=== PATIENT | female | born 1940 | race Caucasian/White ===

== ENCOUNTER 2023-04-23 21:42 | Inpatient (IN) | payer MEDICARE, BC, SELFPAY ==
[2023-04-23] VITALS (10 sets, daily range): BP systolic 103–138; BP diastolic 62–73; BMI 31.1
[2023-04-23 16:21] LABS: % Basophils 0.2 % (0-2); % Immature Granulocytes 0.5 % (0-0.5); % Monocytes 5.5 % (1.7-9.3); % Neutrophils 88.8 % (42.2-75.2); Absolute Immature Granulocytes 0.1 10^3/uL (0-0.05); Absolute Lymphocytes 0.7 10^3/uL (1.2-3.4); Absolute Monocytes 0.7 10^3/uL (0.1-0.6); Absolute Neutrophils 11.5 10^3/uL (1.4-6.5); Hematocrit 30.3 % (37.0-47.0); Hemoglobin 9.8 g/dL (12.0-16.0); Mean Corp Hgb Conc. 32.3 g/dL (33.0-37.0); Mean Corpuscular Volume 89.6 fL (81.0-99.0); Mean Platelet Volume 10.4 fL (7.4-10.4); Nucleated Red Blood Cells % 0 %; Platelet Count 196 10^3/uL (130-400); Red Blood Cell Count 3.38 10^6/uL (4.20-5.40); Red Cell Dist. Width 13.1 % (11.5-14.5)
[2023-04-23 16:34] LABS: Lactic Acid 1.3 mmol/L (0.7-2.0)
[2023-04-23] MEDS: OMNIPAQUE 50 ML PO (16:34)
[2023-04-23] MEDS: ZOFRAN 4 MG IV ×2 (16:34→21:32)
[2023-04-23] MEDS: DILAUDID 0.25 MG IV (16:34)
[2023-04-23 16:35] LABS: ALT (SGPT) 21 U/L (0-35); AST (SGOT) 25 U/L (14-36); Albumin 3.7 g/dl (3.5-5.0); Alkaline Phosphatase 91 U/L (38-126); Blood Urea Nitrogen 21 mg/dl (7-17); Calcium 8.7 mg/dl (8.4-10.2); Carbon Dioxide 36 mmol/L (22-30); Chloride 99 mmol/L (98-107); Estimated Creatinine Clearance 37 ml/min; Glucose 125 mg/dl (70-99); Lipase 54 U/L (23-300); Potassium 3.6 mmol/L (3.5-5.1); Sodium 136 mmol/L (135-145); Total Bilirubin 1.1 mg/dl (0.2-1.3); eGFR 56.25
--- NOTE | 2023-04-23 16:35 | ED.GENMED ---
Addendum entered and electronically signed by Conner Brown DO 04/23/23 20:42:
Reviewed with hospitalist, will reverse her anticoagulation,
30 minutes critical care time
CRITICAL CARE STATEMENT: A total of 30 minutes of critical care time was provided for this patient. This includes management of unstable vital signs, evaluation of the patient at bedside, reviewing the patient's pertinent medical records discussion
with EMS providers and patient's family in addition to discussion with consultants, review of old EKGs and review of pertinent medical records. This time with separate from time utilized to perform the aforementioned documented procedures
Original Note:
History of Present Illness
General
Chief Complaint: Abdominal Pain
Source: patient
Exam Limitations: none
Time Seen by Provider: 04/23/23 16:11
Nursing documentation reviewed up to this point in time: agreed with
Travel History
Have you had any contact with someone who has COVID-19?: No
Do you have any symptoms of coronavirus? Fever > 100 degrees, chills, cough, shortness of breath, sore throat, loss of taste or smell, muscle aches, or headache?: No
History of Present Illness
History of Present Illness:
82-year-old female presents with abdominal pain she has had a known hernia sound like incisional from C-sections at least for 30 years she states her museum director told her never to have it fixed because the mesh could cause complications she has lived
with it for many years until recently she has developed some pain with nausea, at dinner last night no fevers, slowly increasing size of the hernia
Complicated past medical history PEs on Eliquis, COPD on oxygen, congestive heart failure, liver cyst, renal cyst
Past History
Past History
ED Past Medical History: CHF, COPD, HTN and Other (PE on Eliquis)
ED Past Surgical History: Gynecological
Social History
Tobacco: Non-smoker
Alcohol: None
Drug: None
Living: with family
Employment: Retired
Review of Systems
Review of Systems
All Other Systems: Not applicable
Constitutional: Denies fever or fatigue
Respiratory: Reports no symptoms
Cardiac: Reports no symptoms
ABD/GI: Reports abdominal pain and nausea; Denies vomiting or anorexia
: Reports no symptoms
Musculoskeletal: Reports no symptoms
Neurological: Reports no symptoms
Phy Exam
Physical Exam
Physical Exam:
Physical Exam
General: Nontoxic chronically ill
Neck: No
Heart: Regular
Lungs: no acute respiratory distress. clear bilaterally
Abdomen: Large anterior abdominal wall hernia/fascial defect minimally tender no guarding or rebound no skin change
Neuro: alert and oriented. no focal neurological deficits
Skin: no rash
Psychiatric: well kept. interactive and cooperative
Extremities: no edema.
Course
Orders/Labs/Results
Orders:
Orders
04/23/23 16:00
IV Insert/Care/Rem.- Treatment PRN
04/23/23 16:07
Complete Blood Count/With Diff Urgent
Comprehensive Metabolic Panel Urgent
Lactic Acid Urgent
Lipase Urgent
04/23/23 16:26
Iohexol [Omnipaque] See Protocol PO NOW STA
04/23/23 16:27
CT Abd/pel W Iv And Oral Contr Urgent
Comment:
Reason For Exam: painful hernia
0.9% Sodium Chloride 500 ml [Nss] 500 ml IV BOLUS
HYDROmorphone [Dilaudid] 0.25 mg IV NOW STA
Ondansetron Injectable [Zofran] 4 mg IV NOW STA
Abnormal Lab Results
04/23/23
16:07
WBC 13.0 H 10^3/uL
(4.8-10.8)
RBC 3.38 L 10^6/uL
(4.20-5.40)
Hgb 9.8 L g/dL
(12.0-16.0)
Hct 30.3 L %
(37.0-47.0)
MCHC 32.3 L g/dL
(33.0-37.0)
Abs Immat Gran (auto) 0.1 H 10^3/uL
(0-0.05)
Absolute Neuts (auto) 11.5 H 10^3/uL
(1.4-6.5)
Absolute Lymphs (auto) 0.7 L 10^3/uL
(1.2-3.4)
Absolute Monos (auto) 0.7 H 10^3/uL
(0.1-0.6)
Neutrophils % 88.8 H %
(42.2-75.2)
Lymphocytes % 5.0 L %
(20.5-51.1)
Carbon Dioxide 36 H mmol/L
(22-30)
BUN 21 H mg/dl
(7-17)
Glucose 125 H mg/dl
(70-99)
Total Protein 6.0 L g/dl
(6.3-8.2)
04/23/23 16:07
04/23/23 16:07
Vital Signs
Initial and Last Documented VS:
Initial Vital Signs
Temp Pulse Resp BP Pulse Ox
98.0 F 69 18 103/62 96
04/23/23 15:52 04/23/23 15:52 04/23/23 15:52 04/23/23 15:52 04/23/23 15:52
Last Documented Vital Signs
Temp Pulse Resp BP Pulse Ox
98.0 F 69 18 103/62 96
04/23/23 15:52 04/23/23 15:52 04/23/23 15:52 04/23/23 15:52 04/23/23 15:52
MDM/Problems Addressed
Differential Diagnosis Includes:
Hernia bowel obstruction partial obstruction other intra-abdominal process
MDM/Problems Addressed:
Abdominal pain
Chronic conditions affecting care:
Hernia, PE COPD CHF
Chronic conditions affecting care: Cardiomyopathy, COPD and Previous abdomnial surgery
Acute Exacerbation and/or Progression of Chronic Illness: Cardiomyopathy, COPD and Previous abdomnial surgery
*Radiology
Radiology exam reviewed: preliminary read by ED provider and radiology read reviewed
*Pulse Oximetry
Patient hypoxic: no
*Life Care Planner Interpretation
Rate: normal
Interpretation: normal
Heart Rate: 78
Rhythm: sinus
*Critical Care Note
Total Time (30-74mins, 75-104mins- exclusive of procedures): Not Applicable
Data Reviewed
Source: patient and family
Prescriptions/Medications Considered But Not Given:
Kcentra
Further Testing Considered But Not Given:
Ultrasound
Patient Management
Social determinants of health affecting care: Living situation
Discussion with other providers: Hospitalist
Escalation/DeEscalation of care consider admission/obs:
Patient medically complex on oxygen anticoagulated mildly anemic with ascites will require admission consideration for transfusion and reversal further testing or intervention reviewed with patient and family extensively
Update Note
Update Note:
7:55 PM labs noted, no old hemoglobin in her system CT noted CT report noted
Suspect will require admission
ED Attending Note
-
Portions of this chart may have been created with voice recognition software.� Occasional wrong word or��sound alike� substitutions may have occurred due to the inherent limitations of voice recognition software.
Discharge Plan
Departure
Patient Disposition: Admit
Date of Disposition: 04/23/23
Time of Disposition: 20:12
Admit to: Telemetry
Presentation/result/management discussed w/ accepting MD/DO: Hospitalist
Patient with high blood pressure during this ER visit?: No
Condition: Fair
Discharge Problem:
Ruptured liver cyst
Referrals:
Fanta Muller MD [Family Provider] -
Interventions
Interventions:
*Risk Screen - Suicide Last Done: 04/23/23 15:59
*General Assessment Last Done: 04/23/23 15:57
*Neglect/Abuse Screening Last Done: 04/23/23 15:59
ED- Fall Risk Assessment Last Done: 04/23/23 16:11
*ED COVID-19 Vaccine History Last Done: 04/23/23 15:57
IQ-Guyouk-Ojnvedfswh Assessment Last Done: 04/23/23 16:10
[2023-04-23] MEDS: NSS 500 IV (16:43)
--- NOTE | 2023-04-23 20:38 | ED.GENMED ---
History of Present Illness
General
Chief Complaint: Abdominal Pain
Time Seen by Provider: 04/23/23 16:11
Travel History
Have you had any contact with someone who has COVID-19?: No
Do you have any symptoms of coronavirus? Fever > 100 degrees, chills, cough, shortness of breath, sore throat, loss of taste or smell, muscle aches, or headache?: No
Past History
Past History
ED Past Medical History: CHF, COPD, HTN and Other (PE on Eliquis)
ED Past Surgical History: Gynecological
Social History
Tobacco: Non-smoker
Alcohol: None
Drug: None
Living: with family
Employment: Retired
Course
Orders/Labs/Results
Orders:
Orders
04/23/23 16:00
IV Insert/Care/Rem.- Treatment PRN
04/23/23 16:07
Complete Blood Count/With Diff Urgent
Comprehensive Metabolic Panel Urgent
Lactic Acid Urgent
Lipase Urgent
04/23/23 16:26
Iohexol [Omnipaque] See Protocol PO NOW STA
04/23/23 16:27
CT Abd/pel W Iv And Oral Contr Urgent
Comment:
Reason For Exam: painful hernia
0.9% Sodium Chloride 500 ml [Nss] 500 ml IV BOLUS
HYDROmorphone [Dilaudid] 0.25 mg IV NOW STA
Ondansetron Injectable [Zofran] 4 mg IV NOW STA
04/23/23 20:37
Prothrombin Time Urgent
Protime/PTT Urgent
Prothrombin Complex(Pcc),Human [Kcentra] 1,747.5 unit Empty Viaflex Container 100 ml [Viaflex Empty Container] 0 ml IV NOW
Does patient have a dx of serious acute active bleeding?: Yes
Does patient have prior history of HIT?: No
Abnormal Lab Results
04/23/23
16:07
WBC 13.0 H 10^3/uL
(4.8-10.8)
RBC 3.38 L 10^6/uL
(4.20-5.40)
Hgb 9.8 L g/dL
(12.0-16.0)
Hct 30.3 L %
(37.0-47.0)
MCHC 32.3 L g/dL
(33.0-37.0)
Abs Immat Gran (auto) 0.1 H 10^3/uL
(0-0.05)
Absolute Neuts (auto) 11.5 H 10^3/uL
(1.4-6.5)
Absolute Lymphs (auto) 0.7 L 10^3/uL
(1.2-3.4)
Absolute Monos (auto) 0.7 H 10^3/uL
(0.1-0.6)
Neutrophils % 88.8 H %
(42.2-75.2)
Lymphocytes % 5.0 L %
(20.5-51.1)
Carbon Dioxide 36 H mmol/L
(22-30)
BUN 21 H mg/dl
(7-17)
Glucose 125 H mg/dl
(70-99)
Total Protein 6.0 L g/dl
(6.3-8.2)
04/23/23 16:07
04/23/23 16:07
Vital Signs
Initial and Last Documented VS:
Initial Vital Signs
Temp Pulse Resp BP Pulse Ox
98.0 F 69 18 96
04/23/23 15:52 04/23/23 15:52 04/23/23 15:52 04/23/23 15:52 04/23/23 15:52
Last Documented Vital Signs
Temp Pulse Resp BP Pulse Ox
98.0 F 69 18 96
04/23/23 15:52 04/23/23 15:52 04/23/23 15:52 04/23/23 15:52 04/23/23 15:52
ED Attending Note
-
Portions of this chart may have been created with voice recognition software.� Occasional wrong word or��sound alike� substitutions may have occurred due to the inherent limitations of voice recognition software.
Discharge Plan
Departure
Patient Disposition: Admit
Date of Disposition: 04/23/23
Time of Disposition: 20:12
Admit to: Telemetry
Presentation/result/management discussed w/ accepting MD/DO: Hospitalist
Patient with high blood pressure during this ER visit?: No
Condition: Fair
Discharge Problem:
Ruptured liver cyst
Prescriptions:
No Action
Eliquis 5 mg Tablet
5 mg PO BID
amlodipine [Norvasc] 2.5 mg Tablet
7.5 mg PO DAILY
metoprolol succinate [Toprol XL] 25 mg Tablet Extended Release 24 Hr
25 mg PO DAILYPRN PRN (Reason: high heart rate)
paroxetine HCl [Paxil CR] 25 mg Tablet Extended Release 24 Hr
50 mg PO DAILY
Rx Instructions:
take in am with one tablet of 12.5mg er
paroxetine HCl [Paxil CR] 12.5 mg Tablet Extended Release 24 Hr
12.5 mg PO DAILY
Rx Instructions:
take in am with two 25mg er tablets
rosuvastatin [Crestor] 10 mg Tablet
10 mg PO HS
Jardiance 10 mg Tablet
10 mg PO DAILY
Referrals:
Fanta Muller MD [Family Provider] -
Interventions
Interventions:
*Risk Screen - Suicide Last Done: 04/23/23 15:59
*General Assessment Last Done: 04/23/23 15:57
*Neglect/Abuse Screening Last Done: 04/23/23 15:59
ED- Fall Risk Assessment Last Done: 04/23/23 16:11
*ED COVID-19 Vaccine History Last Done: 04/23/23 15:57
BA-Oehmzv-Ivtfvezmer Assessment Last Done: 04/23/23 16:10
--- NOTE | 2023-04-23 21:06 | HPS.HSE ---
Family Physician
-
Family Physician: Fanta Muller
Chief Complaint
-
abdominal pain
History of Present Illness
82-year-old female past medical history of pulmonary embolism on Eliquis, CHF, hypertension, COPD on 3 L baseline, incisional hernia, liver cyst, renal cyst, presenting with abdominal pain which started yesterday evening. Pain came on relatively
suddenly and located diffusely all over her belly. She denies any radiation to the back or chest or groin. She did have some nausea but denies vomiting. She is generally constipated but did have a small bowel movement this morning.
Patient has a history of abdominal hernia after her that is quite large. She has declined hernia surgery because she was scared of complications of mesh getting infected. She does have some pain over the hernia site at times but she does
not believe it has gotten larger since yesterday.
Patient denies any recent trauma or falls.
She states that she had 2 episodes of pulmonary embolism in the past but it has been a very long time possibly 15 years since she had a pulmonary embolism.
She is a former smoker. She drinks a glass of alcohol per day.
She had 3 C-sections previously. She also had an prior hernia surgery before but does not remember where the hernia was located.
Medical History
Past Medical History
Past Medical History: Reports Other (pulmonary embolism on Eliquis, CHF, hypertension, COPD on 3 L baseline, incisional hernia, liver cyst, renal cyst)
Past Surgical History: Reports None and
Social History
Tobacco: Former Smoker
Alcohol: Daily
Drug: None
Family History
Family History: Not pertinent
Allergies / Home Medications
Allergies reflects when Allergies were last updated in [facility].
Home Medications with original date entered in [facility]
Allergy/Medication List:
Allergies
Allergy/AdvReac Type Severity Reaction Status Date / Time
No Known Allergies Allergy Unverified 04/23/23 15:57
Home Medications
amlodipine 2.5 mg tablet (Norvasc) 7.5 mg PO DAILY 04/23/23
apixaban 5 mg tablet (Eliquis) 5 mg PO BID 04/23/23
empagliflozin 10 mg tablet (Jardiance) 10 mg PO DAILY 04/23/23
metoprolol succinate 25 mg tablet,extended release 24 hr (Toprol XL) 25 mg PO DAILYPRN PRN high heart rate 04/23/23
paroxetine HCl 12.5 mg tablet,extended release 24 hr (Paxil CR) 12.5 mg PO DAILY 04/23/23
paroxetine HCl 25 mg tablet,extended release 24 hr (Paxil CR) 50 mg PO DAILY 04/23/23
rosuvastatin 10 mg tablet (Crestor) 10 mg PO HS 04/23/23
Review of Systems
-
History Source: Patient
A 12 point ROS was completed and negative except as noted: Yes
Constitutional: Reports No Symptoms
EENT: Reports No Symptoms
Respiratory: Reports No Symptoms
Cardiac: Reports No Symptoms
Abdomen/GI: Reports See HPI
: Reports No Symptoms
Musculoskeletal: Reports No Symptoms
Skin: Reports No Symptoms
Neurological: Reports No Symptoms
Endocrine: Reports No Symptoms
Hematologic/Lymphatic: Reports No Symptoms
Psych: Reports No Symptoms
Physical Exam
Vital Signs
Vital Signs
Temp Pulse Resp BP Pulse Ox
98.0 F 69 18 103/62 96
04/23/23 15:52 04/23/23 15:52 04/23/23 15:52 04/23/23 15:52 04/23/23 15:52
Physical Exam
General: Well Developed, Well Nourished and No Apparent Distress
HEENT: NormoCephalic, Moist mucous membranes and Atraumatic
Respiratory: Clear
Cardiac: S1/S2 and Regular Rhythm; No Murmur or Rub
GI: Soft, Non Tender, Non Distended and Normal Bowel Sounds; No Organomegaly
Rectal: Deferred by Provider
Musculoskeletal: No Clubbing, No Cyanosis and No Edema
Skin: No Rash
Neuro: Nonfocal/grossly intact
Laboratory Results
-
04/23/23 16:07
04/23/23 16:07
Laboratory Results
Lactic Acid 1.3 mmol/L (0.7-2.0) 04/23/23 16:07
Total Bilirubin 1.1 mg/dl (0.2-1.3) 04/23/23 16:07
AST 25 U/L (14-36) 04/23/23 16:07
ALT 21 U/L (0-35) 04/23/23 16:07
Alkaline Phosphatase 91 U/L (38-126) 04/23/23 16:07
Lipase 54 U/L (23-300) 04/23/23 16:07
Data Reviewed
-
Lab Data: Labs Reviewed by me
Old Records: Reviewed
Impression/Plan
-
IMPRESSION:
PLAN:
# Abdominal pain likely secondary to ruptured hepatic cyst with hemoperitoneum
#Normocytic anemia unknown if chronic or blood loss anemia
# History of liver cyst
-Patient hemodynamically stable, hemoglobin 9.8 no prior available
-CT abdomen pelvis shows findings suspicious of large right hepatic cyst with possible cyst perforation. There is moderate ascites suggesting hemorrhage
-ER discussed with general surgery who recommends conservative management at this time. If patient becomes clinically unstable, IR can be consulted for embolization versus surgical liver resection which could be performed here
-IR consulted and notified
-Otherwise paracentesis tomorrow
-Check coags
-Hold Eliquis
-Kcentra to reverse Eliquis
# Chronic large incisional hernia
-CT scan shows that there is central/left paracentral mid to lower abdominal wall hernia defect measuring 5 cm with hernia sac measuring 16 cm continue segment of transverse colon. There is ascites within the hernia sac consistent with
hemoperitoneum. Nonspecific mild soft tissue stranding of fat within the hernia sac
History of pulmonary embolism x2 in distant past
-Hold Eliquis
History of chronic heart failure
-Hold Jardiance
COPD on 3 L baseline
Essential hypertension
-Hold amlodipine
-Continue metoprolol
History of kidney cyst
Anxiety/depression
-Continue paroxetine
Full code
DVT prophylaxis�SCDs
Regular diet
[2023-04-23] MEDS: KCENTRA 60 UNIT IV (21:09)
[2023-04-23] MEDS: MORPHINE SULFATE 4 MG IV (21:33)
[2023-04-23 21:39] LABS: INR 1.74; PT 20.2 Sec (11.4-14.6)
[2023-04-23 21:40] LABS: APTT 31.8 Sec (23.4-35.0)
--- NOTE | 2023-04-23 22:30 | PTCARENOTE ---
rec`d pt from ED at 2230. pt AAOx3. NSR on monitor. last BP 123/71. Rt AC 20 flushed and patent. RT 20 FA placed in ICU upon arrival. HR low 60s. 3L Nc satting at 97%. 3L is pt`s baseline. Last BM reported by pt on 04/22, in morning. Pt gets up to
bathroom to urinate. Pt has large hernia in right lower abdomen. site is tender to touch. no discoloration. Pt denies pain while laying down, Pt complains of pain with movement. bed alarm on. safe environment maintained. call agarwal in reach.
[2023-04-23] MEDS: CRESTOR 10 MG PO (23:23)
[2023-04-24] VITALS (67 sets, daily range): BP systolic 88–147; BP diastolic 45–112; BMI 32.6
--- NOTE | 2023-04-24 | PTCARENOTE ---
pt reassessed. no changes in pt assessment. call agarwal in reach. pt resting comfortably.
[2023-04-24 00:33] LABS: Hemoglobin 8.4 g/dL (12.0-16.0)
[2023-04-24 03:57] LABS: % Basophils 0.2 % (0-2); % Eosinophils 0.2 % (0-6); % Immature Granulocytes 0.7 % (0-0.5); % Lymphocytes 7.3 % (20.5-51.1); % Monocytes 6.8 % (1.7-9.3); % Neutrophils 84.8 % (42.2-75.2); Absolute Immature Granulocytes 0.1 10^3/uL (0-0.05); Absolute Lymphocytes 0.9 10^3/uL (1.2-3.4); Absolute Monocytes 0.8 10^3/uL (0.1-0.6); Absolute Neutrophils 10.4 10^3/uL (1.4-6.5); Hematocrit 25.6 % (37.0-47.0); Hemoglobin 8.5 g/dL (12.0-16.0); Mean Corp Hgb Conc. 33.2 g/dL (33.0-37.0); Mean Corpuscular Hgb 29.8 pg (27.0-31.0); Mean Corpuscular Volume 89.8 fL (81.0-99.0); Mean Platelet Volume 10.4 fL (7.4-10.4); Nucleated Red Blood Cells % 0 %; Platelet Count 177 10^3/uL (130-400); Red Blood Cell Count 2.85 10^6/uL (4.20-5.40); Red Cell Dist. Width 13.2 % (11.5-14.5); White Blood Cell Count 12.3 10^3/uL (4.8-10.8)
--- NOTE | 2023-04-24 04:00 | PTCARENOTE ---
pt reassessed. no changes in pt assessment. pt resting. call agarwal in reach.
[2023-04-24 04:12] LABS: APTT 29.7 Sec (23.4-35.0); INR 1.45; PT 17.4 Sec (11.4-14.6)
[2023-04-24 04:35] LABS: ALT (SGPT) 18 U/L (0-35); AST (SGOT) 26 U/L (14-36); Albumin 3.3 g/dl (3.5-5.0); Alkaline Phosphatase 65 U/L (38-126); Blood Urea Nitrogen 20 mg/dl (7-17); Calcium 8.2 mg/dl (8.4-10.2); Carbon Dioxide 32 mmol/L (22-30); Chloride 98 mmol/L (98-107); Estimated Creatinine Clearance 47 ml/min; Glucose 112 mg/dl (70-99); Potassium 3.7 mmol/L (3.5-5.1); Sodium 134 mmol/L (135-145); Total Bilirubin 1.2 mg/dl (0.2-1.3); Total Protein 5.6 g/dl (6.3-8.2); eGFR > 60.00
--- NOTE | 2023-04-24 07:17 | CON.INTV ---
Consultation
Consultation Request
Date/Time Consultation Requested: 04/23/23
Date/Time Consultation Performed: 04/24/23
Performing Provider: José Luis
Reason for Consultation: ICU
Medical History
-
History of Present Illness:
Patient is an 82-year-old female past medical history of pulmonary embolism on Eliquis, CHF, hypertension, COPD on 3 L baseline, incisional hernia, liver cyst, renal cyst, presenting with abdominal pain which started yesterday evening.� Pain came on
relatively suddenly and located diffusely all over her belly.� She denies any radiation to the back or chest or groin.� She did have some nausea but denies vomiting.� She is generally constipated but did have a small bowel movement this morning.
Hernia is chronic but enlarging over the years.
CT abdomen pelvis obtained in ER showing large right hepatic cyst with possible cyst perforation.� There is moderate ascites suggesting hemorrhage as well. She is otherwise hemodynamically stable not on pressors. Hb on arrival 9.8.
She has transitioned her care from [place] recently, hence no past records.
She is admitted to ICU for possible intra-abdominal hemorrhage and potential need for urgent intervention.
Past Medical History
Past Medical History: Other (see list below)
Social History
Tobacco: Former Smoker
Alcohol: None
Drug: None
Family History
Family History: Reviewed & Not Pertinent
Allergies / Home Medications
Allergies
Allergy/AdvReac Type Severity Reaction Status Date / Time
No Known Allergies Allergy Unverified 04/23/23 15:57
Home Medications
Medication Instructions Recorded Confirmed Last Taken Type
amlodipine 2.5 mg tablet (Norvasc) 7.5 mg PO DAILY 04/23/23 04/23/23 04/23/23 History
apixaban 5 mg tablet (Eliquis) 5 mg PO BID 04/23/23 04/23/23 04/23/23 History
empagliflozin 10 mg tablet 10 mg PO DAILY 04/23/23 04/23/23 04/23/23 History
(Jardiance)
metoprolol succinate 25 mg 25 mg PO DAILYPRN PRN high heart 04/23/23 04/23/23 Unknown History
tablet,extended release 24 hr rate
(Toprol XL)
paroxetine HCl 12.5 mg 12.5 mg PO DAILY 04/23/23 04/23/23 04/23/23 History
tablet,extended release 24 hr
(Paxil CR)
paroxetine HCl 25 mg 50 mg PO DAILY 04/23/23 04/23/23 04/23/23 History
tablet,extended release 24 hr
(Paxil CR)
rosuvastatin 10 mg tablet (Crestor) 10 mg PO HS 04/23/23 04/23/23 Unknown History
Review of Systems
-
History Source: Patient
All other systems: Negative unless noted
Vitals / Labs / Diagnostic Testing
Vital Signs
Temp Pulse Resp BP Pulse Ox
98.0 F 59 17 103/53 99
04/23/23 15:52 04/24/23 05:30 04/24/23 05:30 04/24/23 05:00 04/24/23 05:30
Lab Data
04/24/23 03:43
04/24/23 03:43
Laboratory Results
04/23/23 04/24/23
21:22 03:43
PT 20.2 H 17.4 H
INR 1.74 1.45
APTT 31.8 29.7
Diagnostic Testing:
Physical Exam
-
HEENT: Normocephalic, Anicteric and Moist Mucous Membranes
Cardiovascular: S1/S2 and Regular Rhythm
Respiratory: Clear and Non-Labored Respirations
GI: Soft, Distended, Tender and Organomegaly (palpable ventral hernia)
Neurology: Awake, Alert, Oriented, AO x 3 and No Motor Deficits
Skin: Warm, Dry and Good Color
General: Comfortable, Poor Appetite and Other (NAD)
Assessment
-
Patient is an 82-year-old female past medical history of pulmonary embolism on Eliquis, CHF, hypertension, COPD on 3 L baseline, incisional hernia, liver cyst, renal cyst, presenting with abdominal pain N/V, which started yesterday evening.�Hernia
is chronic but enlarging over the years. CT abdomen pelvis obtained in ER showing large right hepatic cyst with possible cyst perforation.� There is moderate ascites suggesting hemorrhage as well. She is otherwise hemodynamically stable not on
pressors. Hb on arrival 9.8. She is admitted to ICU for possible intra-abdominal hemorrhage and potential need for urgent intervention.
Large R hepatic cyst with possible perforation
Intra-abdominal hemorrhage suspected
Acute blood loss anemia, unknown baseline Hb
Abd pain, N/V, decreased PO intake
Hyponatremia, mild
Met alkalosis
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
pulmonary embolism on Eliquis
CHF
hypertension
COPD on 3 L baseline
incisional hernia
liver cyst
renal cyst
Plan
No current signs of metabolic encephalopathy or MS changes/following commands
Mild-mod pain at this time.
Pain/sedation: PRN
RASS goals: 0
Hemodynamically stable, not requiring pressors.
Cardiac history reviewed--CHF history, not on home meds for this
No prior ECHO for review, had care in [place], will need records
Monitor on telemetry, limit excessive volume
Oxygen needs: 3L which is baseline
Prior history of lung disease: COPD, had seen pulmonary in [place] and reports her lung function is 'bad'
PE history on Eliquis/hold with possible bleeding
Not on home inhalers, can add Duonebs PRN
Supplemental O2 as indicated to maintain sats > 89%
CXR/CT reviewed indicating NAD in chest
Check baseline VBG given bicarb
NPO, resume diet when able
CT AP showing possible cyst rupture and hemorrhage
IR and Sx consults obtained--await plan
Aspiration precautions, HOB > 30 degrees
GI prophylaxis
Creat at baseline, no history of renal disease
Void trials
Follow urine output, critical I/Os
Replete electrolytes as needed
No signs/symptoms suspicious for infectious etiology at this time
Observe off antibiotics for now
Follow fever trend, WBC count
Lactate elevated on admission
CBC stable, possible intra-abd bleed
Hb low but no baseline for comparison
Transfuse if there is evidence for bleeding
DVT prophylaxis as assessed based on risk, including mechanical SCDs--hold home Eliquis
Can transfuse if indicated for Hb <7, plt < 10
INR WNL
No prior h/o thyroid disease
H/o diabetes, can continue on home meds, SS for coverage
HbA1c n/a
If being managed conservatively, may consider transfer to IMU
We will follow
Diagnostic Data
Chest X-Ray: 04/23/23- Low lung volumes secondary to poor inspiratory effort. Advanced right thoracic scoliosis. Nonspecific mild opacity at the lung bases. Possible considerations include atelectasis, scarring, or pneumonia. The mid to upper lung
zones are clear. No significant vascular congestion or evidence to suggest congestive heart failure. No pneumothorax.
CT Scan: AP 04/23/23- Findings highly suspicious for large right hepatic cyst with possible cyst perforation. Moderate ascites in the abdomen and pelvis, some which contains dependent increased attenuation fluid, suggesting hemorrhage. However, no
active extravasation of intravascular contrast is identified.
Central/left paracentral mid to lower abdominal wall hernia defect measuring 5 cm transverse, with hernia sac measuring 16 cm, containing a segment of transverse colon. There is ascites within the hernia sac, some of which is increased attenuation,
consistent with hemoperitoneum. Nonspecific mild soft tissue stranding of the fat within the hernia sac as well as mild irregular thickening of the margins of the hernia sac, and adjacent/surrounding edema within the subcutaneous fat.
Moderate to advanced sigmoid diverticulosis. Mild diverticulosis of the descending colon. No evidence of acute diverticulitis. No evidence to suggest bowel obstruction.
No free air. No focal collection or abscess. Right inguinal hernia with fluid and probable hemorrhage/thrombus. Mild parenchymal consolidation in the posterior left lung base, which could represent scarring, atelectasis, or pneumonia. Possible small
right breast mass. Recommend correlation with mammography.
Echo:
PFT's:
Reports and relevant images were personally reviewed.
-----
Critical Care time 51 mins -- The patient is admitted for acute critical illness for the treatment of vital organ failure and/or prevention of further life-threatening conditions. Total care includes time spent in review of history, physical exam,
medications, hemodynamic/ventilator parameters, laboratory data, imaging and discussion with house staff, pharmacy, respiratory therapy, quality audit representative, and nursing.
--- NOTE | 2023-04-24 07:52 | W.PN.HOSP.TC ---
Today's Communication/Plan
-
see A/P
Assessment / Plan
Assessment / Plan
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
suddenly and located diffusely all over her belly.�She denied any radiation to the back or chest or groin.� She did have some nausea but denies vomiting.� She is generally constipated but did have a small bowel movement this morning.
Patient has a history of abdominal hernia after her that is quite large.� She has declined hernia surgery because she was scared of complications of mesh getting infected.� She does have some pain over the hernia site at times but she does
not believe it has gotten larger.
Patient denies any recent trauma or falls.
She states that she had 2 episodes of pulmonary embolism in the past but it has been a very long time possibly 15 years since she had a pulmonary embolism.
She is a former smoker.� She drinks a glass of alcohol per day.
She had 3 C-sections previously.�She also had an prior hernia surgery before but does not remember where the hernia was located.
CT AP:
Findings highly suspicious for large right hepatic cyst with possible cyst perforation.
Moderate ascites in the abdomen and pelvis, some which contains dependent increased attenuation fluid, suggesting hemorrhage. However, no active extravasation of intravascular contrast is identified.
Central/left paracentral mid to lower abdominal wall hernia defect measuring 5 cm transverse, with hernia sac measuring 16 cm, containing a segment of transverse colon. There is ascites within the hernia sac, some of which is increased attenuation,
consistent with hemoperitoneum. Nonspecific mild soft tissue stranding of the fat within the hernia sac as well as mild irregular thickening of the margins of the hernia sac, and adjacent/surrounding edema within the subcutaneous fat.
No free air. No focal collection or abscess.
Possible small right breast mass. Recommend correlation with mammography.
A/P:
# Abdominal pain likely secondary to ruptured hepatic cyst with ascites and hemoperitoneum
# Acute blood loss anemia
# History of liver cyst
CT AP finding as above
Hgb 8.5 today, from 9.8 on admission, cont to trend Hgb and transfuse if needed (consent obtained)
s/p Kcentra to reverse BOND RUNNER Eliquis, Hold further Eliquis
Monitor BP, hold BOND RUNNER Toprol / Norvasc
ER discussed with general surgery who recommended conservative management at this time.�If patient becomes clinically unstable, IR can be consulted for embolization versus surgical liver resection
IR consulted and notified, otherwise paracentesis
Check para labs
# Chronic large incisional hernia
CT scan shows that there is central/left paracentral mid to lower abdominal wall hernia defect measuring 5 cm with hernia sac measuring 16 cm continue segment of transverse colon.� There is ascites within the hernia sac consistent with
hemoperitoneum.� Nonspecific mild soft tissue stranding of fat within the hernia sac
# History of pulmonary embolism x2 in distant past
Hold BOND RUNNER Eliquis for now
# History of chronic heart failure
Hold Jardiance
Hold Toprol
# COPD with chronic hypoxic respiratory failure on 3 L at baseline
Cont O2 support
# Essential hypertension
Hold amlodipine, Hold metoprolol
# History of kidney cyst
# Anxiety/depression
Continue paroxetine
# Incidental finding of possible small right breast mass.
Pt aware and states that it is a cyst
Recommend outpatient mammography.
# systolic heart murmur on exam
check echo
Full code
DVT prophylaxis�SCDs
Regular diet
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
called son to update, calls not answered
Anticipated Discharge: > 48 hours
Subjective/Interval History
-
Date of Service: April 24, 2023
Objective Data
-
Labs:
Laboratory Results
04/23/23 04/24/23 04/24/23
21:22 00:20 03:43
WBC 12.3 H
Hgb 8.4 L 8.5 L
Hct 25.6 L
Plt Count 177
PT 20.2 H 17.4 H
INR 1.74 1.45
APTT 31.8 29.7
Sodium 134 L
Potassium 3.7
Chloride 98
Carbon Dioxide 32 H
BUN 20 H
Creatinine 0.8
Glucose 112 H
Calcium 8.2 L
Total Bilirubin 1.2
AST 26
ALT 18
Alkaline Phosphatase 65
Vital Signs:
Vital Signs
Temp Pulse Resp BP Pulse Ox
36.7 C 59 17 103/53 99
04/23/23 15:52 04/24/23 05:30 04/24/23 05:30 04/24/23 05:00 04/24/23 05:30
I&O
04/23/23 04/24/23 04/25/23
06:59 06:59 07:59
Intake Total 250 / 250
Balance 250 / 250
Review of Systems
-
Abdomen/GI: Reports Abdominal Pain (mild and diffuse)
Physical Exam
-
General: Well Developed, Well Nourished, Comfortable, Respiratory Distress (chronic), Conversant and Appears Chronically Ill
HEENT: Normocephalic, Atraumatic, Nose Appears Normal, Ears Appear Normal and Oxygen (4L NC)
Respiratory: Clear to Auscultation and Non Labored Respirations; Negative Accessory Resp Muscle Use
Cardiac: Regular Rhythm, S1/S2 and Murmur (systolic)
GI: Soft, Normal Bowel Sounds and Distended (with chronic abdominal wall hernia )
Skin: Warm and Dry
Neuro: Awake and Alert
Psych: Calm and Intact Judgement/Insight (somewhat)
Data Reviewed
-
CT Scan: Report Reviewed by me
Labs: Labs Reviewed by me
--- NOTE | 2023-04-24 08:26 | PTCARENOTE ---
0700 patient received in bed. Ambulates to the bathroom one person assist . SR 64 BP 120/76 RR 18 POX 98% 3L ( pt's base line at home on 3L of oxygen) AAO x3 forgetful. bed alarm activated for safety. large abdominal hernia. Abdominal pain 7/10 pain
scale at midline . consent for blood transfusing sigh by dr Tipton consent in a chart call agarwal within reach
[2023-04-24] MEDS: MORPHINE SULFATE 1 MG IV ×4 (09:42→19:57)
--- NOTE | 2023-04-24 10:39 | CON.GS ---
Medical History
-
Chief Complaint: RUQ pain
History of Present Illness:
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 Ms. Frye states
that she has had vague RIGHT-sided abdominal discomfort for months now. On she acutely developed worsening sharp pain. No fevers or chills. No nausea or vomiting. No dizziness or lightheadedness. She denies any trauma, however, she
does report coughing related to her COPD. Currently she has some discomfort and mostly RIGHT-sided back pain. Passing flatus, recent bowel movement days previously, she does have chronic issues with constipation. Overall, she feels somewhat
improved.
Past Medical History
Past Medical History: CHF, COPD, HTN, Hypercholesterolemia, NIDDM and Other (PCKD and PCLD)
Past Surgical History: and Hernia Repair (Incisional hernia repair without mesh)
Social History
Tobacco: Former Smoker
Alcohol: Daily
Drug: None
Family History
Family History: Reviewed & Not Pertinent
Allergies / Home Medications
Allergy/AdvReac Type Severity Reaction Status Date / Time
No Known Allergies Allergy Unverified 04/23/23 15:57
Medication Instructions Recorded Confirmed Type
amlodipine 2.5 mg tablet (Norvasc) 7.5 mg PO DAILY 04/23/23 04/23/23 History
apixaban 5 mg tablet (Eliquis) 5 mg PO BID 04/23/23 04/23/23 History
empagliflozin 10 mg tablet 10 mg PO DAILY 04/23/23 04/23/23 History
(Jardiance)
metoprolol succinate 25 mg 25 mg PO DAILYPRN PRN high heart 04/23/23 04/23/23 History
tablet,extended release 24 hr rate
(Toprol XL)
paroxetine HCl 12.5 mg 12.5 mg PO DAILY 04/23/23 04/23/23 History
tablet,extended release 24 hr
(Paxil CR)
paroxetine HCl 25 mg 50 mg PO DAILY 04/23/23 04/23/23 History
tablet,extended release 24 hr
(Paxil CR)
rosuvastatin 10 mg tablet (Crestor) 10 mg PO HS 04/23/23 04/23/23 History
Review of Systems
-
A 10 point review of systems was completed, and was negative except as per HPI.
Physical Exam
Vital Signs
Temp Pulse Resp BP Pulse Ox
98.1 F 59 17 103/53 99
04/24/23 07:54 04/24/23 05:30 04/24/23 05:30 04/24/23 05:00 04/24/23 05:30
04/23/23 04/24/23 04/25/23
06:59 06:59 07:59
Actual Weight 73.2 kg
Body Mass Index (BMI) 32.6
Lab Results
04/24/23 03:43
WBC 12.3 10^3/uL (4.8-10.8) H 04/24/23 03:43
Hgb 8.5 g/dL (12.0-16.0) L 04/24/23 03:43
Hct 25.6 % (37.0-47.0) L 04/24/23 03:43
Plt Count 177 10^3/uL (130-400) 04/24/23 03:43
Abs Immat Gran (auto) 0.1 10^3/uL (0-0.05) H 04/24/23 03:43
Neutrophils % 84.8 % (42.2-75.2) H 04/24/23 03:43
Physical Exam
General: Well Developed, Well Nourished and No Apparent Distress
HEENT: Normocephalic and Anicteric
Respiratory: Rhonchi and Accessory Resp Muscle Use
Cardiac: Regular Rhythm
GI: Soft, Non Tender, Incisions (Well healed), Obese and Other (Large ventral incisional hernia, soft, unable to completely reduce, no skin changes)
Skin: Warm and Dry
Neuro: Nonfocal/Grossly Intact
Data Reviewed
-
CT Scan: Image Personally Visualized and interpreted and Report Reviewed by me
Labs: Labs Reviewed by me
Assessment / Plan
-
Patient is an 82 yo F p/w ruptured liver cyst (possibly secondary to coughing, no history of trauma)
No current clinical signs of bleeding with stable vital signs and Hb. Repeat CTA ordered by hospitalist. Continue to hold Eliquis. Trend Hb. No plans or indication for surgical intervention at this time. If radiographic or clinical concern for
bleeding would recommend management by IR. Surgical intervention would be complicated by body habitus including obesity and large ventral incisional hernia. All questions answered.
-- Repeat CTA pending
-- Trend Hb
-- Continue to hold Eliquis
-- No plans for surgery at this time, if concerned for bleeding IR intervention would be first step
--- NOTE | 2023-04-24 11:37 | PTCARENOTE ---
Venous zayra send results pending . patient nPO after breakfast since around 9am will be taking to CT/abdomen per order .
[2023-04-24 11:40] LABS: Venous Blood Gas B.E. 9.3 mmol/L (-4 to +4); Venous Blood Gas HCO3 35.3 mmol/L (22-27); Venous Blood Gas O2 Sat % 87.9 %; Venous Blood Gas pCO2 57 mmHg (35-48); Venous Blood Gas pO2 54 mmHg (30-50)
[2023-04-24] MEDS: NSS 250 IV (11:42)
[2023-04-24] MEDS: NSS 500 IV (12:47)
--- NOTE | 2023-04-24 12:48 | PTCARENOTE ---
Retuned from CT , results pending. iV bolus adm per order. Abdominal pain across abdomen 4/10 pain scale level . voiding in a bathroom call agarwal within reach
[2023-04-24 15:06] LABS: Hematocrit 22.4 % (37.0-47.0); Hemoglobin 7.3 g/dL (12.0-16.0)
--- NOTE | 2023-04-24 17:29 | PTCARENOTE ---
Recent Hgb 7.[address] Tipton order 2 units PRBC Type and Cross x2 send results pending . Blood consent in a chart. pt AAO 3. Anxious at times . SR 72 BP via left upper arm 120/65 MAP 79. RR 17 POX 3L 98% . Lungs diminished. Abdome
distended, large chronic abdominal hernia. continues having abdominal sharp across midle abdomen pain . Morphine adm with good pain relieve . +2 edema to b/l LE. good appetite . pt ambulates with supervision to bathroom . OOB chair for about 4 hrs.
using nursing call agarwal appropriate . per new order 2 units waiting to be received
--- NOTE | 2023-04-24 18:00 | PTCARENOTE ---
1 units of PRBC started VSS
--- NOTE | 2023-04-24 20:00 | PTCARENOTE ---
rec`d pt at 1900 laying in bed receiving a unit of blood. AAOx3. NSR on monitor. +2 bilateral extrem edema. SCds in place. systolics low 100s to high 90s. 3L baseline, satting at 94%. diminished lung sounds. no BM. pt 1x assist to bathroom to
urinate. large, firm hernia in RLQ. pt complains of pain with movement. pt turns by themselves. call agarwal in reach, safe environment maintained.
[2023-04-24] MEDS: CRESTOR 10 MG PO (22:13)
[2023-04-25] VITALS (36 sets, daily range): BP systolic 103–166; BP diastolic 53–111; BMI 32.6
--- NOTE | 2023-04-25 00:06 | PTCARENOTE ---
pt reassessed. no changes in pt assessment. pt has the second unit of blood currently running. call agarwal in reach.
[2023-04-25] MEDS: MORPHINE SULFATE 1 MG IV ×2 (01:00→04:27)
--- NOTE | 2023-04-25 04:00 | PTCARENOTE ---
pt reassessed. no changes in pt assessment. call agarwal in reach.
[2023-04-25 05:03] LABS: % Basophils 0.2 % (0-2); % Eosinophils 1.4 % (0-6); % Lymphocytes 9.4 % (20.5-51.1); % Monocytes 9.6 % (1.7-9.3); % Neutrophils 78.4 % (42.2-75.2); Absolute Eosinophils 0.1 10^3/uL (0-0.7); Absolute Immature Granulocytes 0.1 10^3/uL (0-0.05); Absolute Lymphocytes 0.8 10^3/uL (1.2-3.4); Absolute Monocytes 0.8 10^3/uL (0.1-0.6); Absolute Neutrophils 6.9 10^3/uL (1.4-6.5); Hematocrit 24.5 % (37.0-47.0); Hemoglobin 8.6 g/dL (12.0-16.0); Mean Corp Hgb Conc. 35.1 g/dL (33.0-37.0); Mean Corpuscular Volume 85.4 fL (81.0-99.0); Mean Platelet Volume 9.9 fL (7.4-10.4); Nucleated Red Blood Cells % 0 %; Red Blood Cell Count 2.87 10^6/uL (4.20-5.40); Red Cell Dist. Width 13.4 % (11.5-14.5); White Blood Cell Count 8.7 10^3/uL (4.8-10.8)
[2023-04-25 05:23] LABS: ALT (SGPT) 13 U/L (0-35); AST (SGOT) 20 U/L (14-36); Albumin 2.9 g/dl (3.5-5.0); Alkaline Phosphatase 71 U/L (38-126); Blood Urea Nitrogen 15 mg/dl (7-17); Carbon Dioxide 31 mmol/L (22-30); Chloride 101 mmol/L (98-107); Estimated Creatinine Clearance 47 ml/min; Glucose 117 mg/dl (70-99); Magnesium 2.3 mg/dl (1.6-2.3); Potassium 3.5 mmol/L (3.5-5.1); Sodium 135 mmol/L (135-145); Total Bilirubin 1.1 mg/dl (0.2-1.3); Total Protein 5.1 g/dl (6.3-8.2); eGFR > 60.00
[2023-04-25 05:47] LABS: Platelet Count 128 10^3/uL (130-400)
[2023-04-25] MEDS: KCL 160 MEQ IV (06:23)
--- NOTE | 2023-04-25 07:21 | W.PN.INTV ---
Today's Communication / Plan
Recommendations
Repeat CT stable/improved, manage conservatively
VBG reviewed, will need outpatient pulmonary/sleep FU
Advance diet, PT/OT
Can transfer to floors, we will sign off upon transfer
Assessment
-
Patient is an 82-year-old female past medical history of pulmonary embolism on Eliquis, CHF, hypertension, COPD on 3 L baseline, incisional hernia, liver cyst, renal cyst, presenting with abdominal pain N/V, which started yesterday evening.�Hernia
is chronic but enlarging over the years. CT abdomen pelvis obtained in ER showing large right hepatic cyst with possible cyst perforation.� There is moderate ascites suggesting hemorrhage as well. She is otherwise hemodynamically stable not on
pressors. Hb on arrival 9.8. She is admitted to ICU for possible intra-abdominal hemorrhage and potential need for urgent intervention.
Large R hepatic cyst with possible perforation
Intra-abdominal hemorrhage suspected
Acute blood loss anemia, unknown baseline Hb
Abd pain, N/V, decreased PO intake
Hyponatremia, mild
Met alkalosis
Chronic hypercarbic respiratory failure, compensated
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
pulmonary embolism on Eliquis
CHF
hypertension
COPD on 3 L baseline
incisional hernia
liver cyst
renal cyst
Plan
No current signs of metabolic encephalopathy or MS changes/following commands
Mild-mod pain at this time.
Pain/sedation: PRN
RASS goals: 0
Hemodynamically stable, not requiring pressors.
Cardiac history reviewed--CHF history, not on home meds for this
No prior ECHO for review, had care in [place], will need records
Monitor on telemetry, limit excessive volume
Oxygen needs: 3L which is baseline
Prior history of lung disease: COPD, had seen pulmonary in [place] and reports her lung function is 'bad'
PE history on Eliquis/hold with possible bleeding
Not on home inhalers, Duonebs PRN
Supplemental O2 as indicated to maintain sats > 89%
CXR/CT reviewed indicating NAD in chest
Baseline VB.4/57/54/35/87% --chronic hypercarbia noted
Outpatient sleep FU recommended
NPO, resume diet when able
CT AP showing possible cyst rupture and hemorrhage, repeat CT improved/stable
IR and Sx consults obtained--appreciate recs
Aspiration precautions, HOB > 30 degrees
GI prophylaxis
Creat at baseline, no history of renal disease
Void trials
Follow urine output, critical I/Os
Replete electrolytes as needed
No signs/symptoms suspicious for infectious etiology at this time
Observe off antibiotics for now
Follow fever trend, WBC count
Lactate elevated on admission
CBC stable, possible intra-abd bleed
Hb low but no baseline for comparison
Transfuse if there is evidence for bleeding
DVT prophylaxis as assessed based on risk, including mechanical SCDs--hold home Eliquis
Can transfuse if indicated for Hb <7, plt < 10
INR WNL
No prior h/o thyroid disease
H/o diabetes, can continue on home meds, SS for coverage
HbA1c n/a
If being managed conservatively, may consider transfer to IMU
Diagnostic Data
Chest X-Ray: 04/23/23- Low lung volumes secondary to poor inspiratory effort. Advanced right thoracic scoliosis. Nonspecific mild opacity at the lung bases. Possible considerations include atelectasis, scarring, or pneumonia. The mid to upper lung
zones are clear. No significant vascular congestion or evidence to suggest congestive heart failure. No pneumothorax.
CT Scan: AP 04/23/23- Findings highly suspicious for large right hepatic cyst with possible cyst perforation. Moderate ascites in the abdomen and pelvis, some which contains dependent increased attenuation fluid, suggesting hemorrhage. However, no
active extravasation of intravascular contrast is identified.
Central/left paracentral mid to lower abdominal wall hernia defect measuring 5 cm transverse, with hernia sac measuring 16 cm, containing a segment of transverse colon. There is ascites within the hernia sac, some of which is increased attenuation,
consistent with hemoperitoneum. Nonspecific mild soft tissue stranding of the fat within the hernia sac as well as mild irregular thickening of the margins of the hernia sac, and adjacent/surrounding edema within the subcutaneous fat.
Moderate to advanced sigmoid diverticulosis. Mild diverticulosis of the descending colon. No evidence of acute diverticulitis. No evidence to suggest bowel obstruction.
No free air. No focal collection or abscess. Right inguinal hernia with fluid and probable hemorrhage/thrombus. Mild parenchymal consolidation in the posterior left lung base, which could represent scarring, atelectasis, or pneumonia. Possible small
right breast mass. Recommend correlation with mammography.
Echo:
PFT's:
Reports and relevant images were personally reviewed.
-----
Critical Care time 32 mins -- The patient is admitted for acute critical illness for the treatment of vital organ failure and/or prevention of further life-threatening conditions. Total care includes time spent in review of history, physical exam,
medications, hemodynamic/ventilator parameters, laboratory data, imaging and discussion with house staff, pharmacy, respiratory therapy, alumni relations officer, and nursing.
Subjective Dataa
Subjective Data
Date of Service:
Date of Service: April 25, 2023
Chief Complaint: Chart Computer Follow Up
Subjective:
no new events, remains stable
no new complaints
Objective Data
Data Reviewed
Vital Signs / I&O / Oxygen:
Vital Signs
Temp Pulse Resp BP Pulse Ox
98.4 F 72 20 115/69 95
04/25/23 03:55 04/25/23 06:30 04/25/23 06:30 04/25/23 06:15 04/24/23 22:30
Intake and Output
04/24/23 04/25/23 04/26/23
05:59 06:59 06:59
Intake Total
Output Total
Balance
SaO2 95
Nasal Cannula flow liters per 3
minute
Physical Exam
General: Comfortable and Other (NAD)
HEENT: Normocephalic, Anicteric and Moist Mucous Membranes
Cardiovascular: S1-S2 and Regular Rhythm
Respiratory: Clear and Non-Labored Respirations
GI: Soft, Distended, Normal Bowel Sounds and Organomegaly (large palpable ventral hernia)
Neurology: Awake, Alert, Oriented, AO x 3 and No Motor Deficits
Skin: Warm, Dry and Good Color
Labs/Micro/Reports
Lab Data
04/25/23 04:35
04/25/23 04:35
--- NOTE | 2023-04-25 08:04 | W.PN.HOSP.TC ---
Today's Communication/Plan
-
see A/P
Assessment / Plan
Assessment / Plan
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
suddenly and located diffusely all over her belly.�She denied any radiation to the back or chest or groin.� She did have some nausea but denies vomiting.� She is generally constipated but did have a small bowel movement this morning.
Patient has a history of abdominal hernia after her that is quite large.� She has declined hernia surgery because she was scared of complications of mesh getting infected.� She does have some pain over the hernia site at times but she does
not believe it has gotten larger.
Patient denies any recent trauma or falls.
She states that she had 2 episodes of pulmonary embolism in the past but it has been a very long time possibly 15 years since she had a pulmonary embolism.
She is a former smoker.� She drinks a glass of alcohol per day.
She had 3 C-sections previously.�She also had an prior hernia surgery before but does not remember where the hernia was located.
CT AP:
Findings highly suspicious for large right hepatic cyst with possible cyst perforation.
Moderate ascites in the abdomen and pelvis, some which contains dependent increased attenuation fluid, suggesting hemorrhage. However, no active extravasation of intravascular contrast is identified.
Central/left paracentral mid to lower abdominal wall hernia defect measuring 5 cm transverse, with hernia sac measuring 16 cm, containing a segment of transverse colon. There is ascites within the hernia sac, some of which is increased attenuation,
consistent with hemoperitoneum. Nonspecific mild soft tissue stranding of the fat within the hernia sac as well as mild irregular thickening of the margins of the hernia sac, and adjacent/surrounding edema within the subcutaneous fat.
No free air. No focal collection or abscess.
Possible small right breast mass. Recommend correlation with mammography.
A/P:
# Abdominal pain likely secondary to ruptured hepatic cyst with ascites and hemoperitoneum
# Acute blood loss anemia
# History of liver cyst
Admission CT AP finding as above
Follow up CT angio without active bleed
Hgb 8.6 today, s/p 2 units PRBC, lowest was at 7.3
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
Monitor BP, hold HUMAN RESOURCES RECORDS CLERK Toprol / Norvasc
ER discussed with general surgery who recommended conservative management at this time.�If patient becomes clinically unstable, IR can be consulted for embolization versus surgical liver resection
Pending paracentesis by IR, and follow up para labs
# Chronic large incisional hernia
CT scan shows that there is central/left paracentral mid to lower abdominal wall hernia defect measuring 5 cm with hernia sac measuring 16 cm continue segment of transverse colon.� There is ascites within the hernia sac consistent with
hemoperitoneum.�Nonspecific mild soft tissue stranding of fat within the hernia sac
# History of pulmonary embolism x2 in distant past
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
# History of chronic heart failure
Hold Jardiance
Hold Toprol
# COPD with chronic hypoxic respiratory failure on 3 L at baseline
Cont O2 support
# Essential hypertension
Hold amlodipine, Hold metoprolol
# History of kidney cyst
# Anxiety/depression
Continue paroxetine
# Incidental finding of possible small right breast mass.
Pt aware and states that it is a cyst
Recommend outpatient mammography.
# systolic heart murmur on exam
check echo
consider card CS depending on echo finding
Full code
DVT prophylaxis�SCDs
Regular diet
DW RN
Anticipated Discharge: 24 - 48 hours
Subjective/Interval History
-
Date of Service: April 25, 2023
Objective Data
-
Labs:
Laboratory Results
04/24/23 04/25/23
23:00 04:35
WBC 8.7
Hgb Cancelled 8.6 L
Hct Cancelled 24.5 L
Plt Count 128 L D
Sodium 135
Potassium 3.5
Chloride 101
Carbon Dioxide 31 H
BUN 15
Creatinine 0.8
Glucose 117 H
Calcium 8.0 L
Total Bilirubin 1.1
AST 20
ALT 13
Alkaline Phosphatase 71
Vital Signs:
Vital Signs
Temp Pulse Resp BP Pulse Ox
37.5 C 72 20 115/69 95
04/25/23 07:43 04/25/23 06:30 04/25/23 06:30 04/25/23 06:15 04/24/23 22:30
I&O
04/24/23 04/25/23 04/26/23
05:59 06:59 06:59
Intake Total
Output Total
Balance
Review of Systems
-
Abdomen/GI: Reports No Symptoms
Physical Exam
-
General: Well Developed, Well Nourished, Comfortable, Respiratory Distress (chronic), Conversant and Appears Chronically Ill
HEENT: Normocephalic, Atraumatic, Nose Appears Normal, Ears Appear Normal and Oxygen (4L NC)
Respiratory: Clear to Auscultation and Non Labored Respirations; Negative Accessory Resp Muscle Use
Cardiac: Regular Rhythm, S1/S2 and Murmur (systolic)
GI: Soft, Normal Bowel Sounds and Distended (with chronic anterior abdominal wall hernia )
Skin: Warm and Dry
Neuro: Awake and Alert
Psych: Calm and Intact Judgement/Insight (somewhat)
Data Reviewed
-
CT Scan: Report Reviewed by me
Labs: Labs Reviewed by me
[2023-04-25] MEDS: MIRALAX 17 GRAMS PO (09:11)
[2023-04-25] MEDS: TYLENOL 650 MG PO ×2 (09:11→21:04)
[2023-04-25] MEDS: SENOKOT-S 1 TABLET PO ×2 (09:11→19:50)
--- NOTE | 2023-04-25 10:05 | W.PN.GS2 ---
Today's Communication / Plan
-
-- No plans for surgery at this time
-- Trend Hb daily
-- Regular diet, Miralax daily
Assessment / Plan
-
Patient is an 82 yo F p/w ruptured hepatic cyst
Drifting hemoglobin likely equilibration. No clinical or radiographic signs of active bleeding; heart rate regular (beta-gavin), BP stable, no dizziness or lightheadedness, no evidence of extravasation on repeat CT scan imaging. Peritoneal fluid
likely a combination of serous fluid from cyst plus blood from liver. Continue to hold Eliquis. Tolerating a diet and no signs of an ileus with passage of flatus. Plan to start MiraLAX given chronic issues with constipation, possible component
related to her hernia. No plans or indications for surgical intervention at this time.
-- Trend Hb daily
-- Hospitalist requesting IR paracentesis, hopefully we do not infect or disrupt clot
-- Regular diet, Miralax daily
Subjective Data
-
Date of Service: April 25, 2023
Overall feels improved from admission, less pain. No dizziness or lightheadedness. No nausea or vomiting. Passing flatus, no BM. No fevers.
Objective Data
-
Intake and Output
04/24/23 04/25/23 04/26/23
05:59 06:59 06:59
Intake Total
Output Total
Balance
Intake:
Oral fluids
Blood Product Amount Infused (
mL)
Packed Rbc Leukoreduced Unit
[id number]
Packed Rbc Leukoreduced Unit
[id number]
Output:
Urine, Voided
Vital Signs
Temp Pulse Resp BP Pulse Ox
99.5 F 72 20 115/69 95
04/25/23 07:43 04/25/23 06:30 04/25/23 06:30 04/25/23 06:15 04/24/23 22:30
Lab Results
04/25/23 04:35
04/25/23 04:35
Calcium 8.0 mg/dl (8.4-10.2) L 04/25/23 04:35
Magnesium 2.3 mg/dl (1.6-2.3) 04/25/23 04:35
Total Bilirubin 1.1 mg/dl (0.2-1.3) 04/25/23 04:35
AST 20 U/L (14-36) 04/25/23 04:35
ALT 13 U/L (0-35) 04/25/23 04:35
Alkaline Phosphatase 71 U/L (38-126) 04/25/23 04:35
Total Protein 5.1 g/dl (6.3-8.2) L 04/25/23 04:35
Albumin 2.9 g/dl (3.5-5.0) L 04/25/23 04:35
Physical Exam
-
Gen: NAD
Abd: soft, minimal tenderness, ND/obese, large ventral hernia, soft, partially reducible, no skin changes, non-peritoneal
--- NOTE | 2023-04-25 10:58 | PTCARENOTE ---
patient received in bed. aAO x3. abdominal pain across abdomen 3/10 pain scale level Tylenol adm. Abdomen continues to be distended, chronic hernia. pt ambulates in a room with supervision . OOB chair . call agarwal within reach
--- NOTE | 2023-04-25 17:34 | PTCARENOTE ---
OOB chair ; AAO x3 c/of of chronic back pain , mild (3/10 ) abdominal pain . Ambulates with walker around unit Appetite good
[2023-04-25] MEDS: MORPHINE SULFATE IV (19:23)
--- NOTE | 2023-04-25 20:00 | PTCARENOTE ---
rec`d pt at 1900 sitting in chair. Pt walked to bathroom with 1x assist and wanted to walk around unit with RN. RN walked pt around unit. Pt used a walker and 3L NC. pt tolerated walk. pt now laying in bed comfortably. AAOx3. NSR on monitor. +2
bilateral extrem edema. SCDs in place and educated on why pt needs them. 3L baseline, satting at 93%. diminished lung sounds. no BM. pt 1x assist to bathroom to urinate. large, firm hernia in RLQ. pt complains of pain with movement. pt turns by
themselves. call agarwal in reach, safe environment maintained.
[2023-04-25] MEDS: CRESTOR 10 MG PO (21:01)
[2023-04-26] VITALS (19 sets, daily range): BP systolic 68–177; BP diastolic 70–103; PULSE 62; O2SAT 96; BMI 32.5
--- NOTE | 2023-04-26 | PTCARENOTE ---
rec'd pt resting in bed, amb to bathroom to void & back to bed, SR w/ occas pac, bp stable, weak distal pulses, + LE edema, , o2 2 liters nc, lungs decr in bases, sat 93, hypo bowel sounds, no bm, abd w/ lg hernia ,no n/v, voiding w/o difficultyin
bathroom
--- NOTE | 2023-04-26 02:20 | PTCARENOTE ---
rec` pt back. pt reassessed. no changes in pt assessment.
[2023-04-26] MEDS: LOPRESSOR 5 MG IV (03:20)
[2023-04-26 04:04] LABS: % Basophils 0.3 % (0-2); % Eosinophils 3.2 % (0-6); % Immature Granulocytes 1.2 % (0-0.5); % Lymphocytes 11.3 % (20.5-51.1); % Monocytes 9.1 % (1.7-9.3); % Neutrophils 74.9 % (42.2-75.2); Absolute Eosinophils 0.3 10^3/uL (0-0.7); Absolute Immature Granulocytes 0.1 10^3/uL (0-0.05); Absolute Lymphocytes 0.9 10^3/uL (1.2-3.4); Absolute Monocytes 0.7 10^3/uL (0.1-0.6); Absolute Neutrophils 5.8 10^3/uL (1.4-6.5); Hematocrit 29.1 % (37.0-47.0); Hemoglobin 9.5 g/dL (12.0-16.0); Mean Corp Hgb Conc. 32.6 g/dL (33.0-37.0); Mean Corpuscular Volume 91.8 fL (81.0-99.0); Mean Platelet Volume 10.3 fL (7.4-10.4); Nucleated Red Blood Cells % 0 %; Platelet Count 148 10^3/uL (130-400); Red Blood Cell Count 3.17 10^6/uL (4.20-5.40); Red Cell Dist. Width 13.9 % (11.5-14.5); White Blood Cell Count 7.8 10^3/uL (4.8-10.8)
--- NOTE | 2023-04-26 04:10 | PTCARENOTE ---
pt reassessed. BP systolic hit 177. 1x dose of IV lopressor given. call agarwal in reach.
[2023-04-26 04:29] LABS: ALT (SGPT) 14 U/L (0-35); AST (SGOT) 19 U/L (14-36); Albumin 3.3 g/dl (3.5-5.0); Alkaline Phosphatase 77 U/L (38-126); Blood Urea Nitrogen 17 mg/dl (7-17); Calcium 8.7 mg/dl (8.4-10.2); Carbon Dioxide 34 mmol/L (22-30); Chloride 101 mmol/L (98-107); Estimated Creatinine Clearance 54 ml/min; Glucose 106 mg/dl (70-99); Magnesium 2.4 mg/dl (1.6-2.3); Sodium 140 mmol/L (135-145); Total Bilirubin 0.6 mg/dl (0.2-1.3); Total Protein 5.6 g/dl (6.3-8.2); eGFR > 60.00
[2023-04-26] MEDS: SENOKOT-S 1 TABLET PO (07:46)
[2023-04-26] MEDS: MIRALAX 17 GRAMS PO (07:46)
[2023-04-26] MEDS: TYLENOL 650 MG PO (07:47)
--- NOTE | 2023-04-26 07:55 | PTCARENOTE ---
0700 patient in bed eating breakfast. abdominal pain across abdomen 05/25 . Tylenol adm per prn oder. chronic hernia. BP via left upper arm 146/84 SR 73 on 3L of oxygen . call agarwal with reach. HOB elevated
--- NOTE | 2023-04-26 08:23 | W.PN.HOSP.TC ---
Today's Communication/Plan
-
check US--eval for ascites prior to paracentesis
await echo
PT/OT
transfer to tele
bowel regimen
restart BP meds
Assessment / Plan
Assessment / Plan
pt is an 82 year old female
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
Eliquis, Hold further Eliquis--apprec gen surgery--no surgical intervention at this time--prior to paracentesis--check abdominal US first
Chronic large incisional hernia--CT scan shows that there is central/left paracentral mid to lower abdominal wall hernia defect measuring 5 cm with hernia sac measuring 16 cm continue segment of transverse colon.� There is ascites within the hernia
sac consistent with hemoperitoneum.�Nonspecific mild soft tissue stranding of fat within the hernia sac
History of pulmonary embolism x2 in distant past--s/p Kcentra and Holding ASSISTANT GROCERY Eliquis for now
History of chronic heart failure, unknown type--restart Jardiance and toprol
COPD with chronic hypoxic respiratory failure on 3 L at baseline--Cont O2 support
Essential hypertension--restart amlodipine and metoprolol
History of kidney cyst
Anxiety/depression--Continue paroxetine
Incidental finding of possible small right breast mass--Pt aware and states that it is a cyst--Recommend outpatient mammography or further investigation
systolic heart murmur on exam-- echo pending
code status --Full code
DVT prophylaxis�SCDs
PT/OT
transfer to tele
Anticipated Discharge: 24 - 48 hours
Subjective/Interval History
-
Date of Service: April 26, 2023
pt denies any further abdominal pain
Objective Data
-
Labs:
Laboratory Results
04/26/23
03:39
WBC 7.8
Hgb 9.5 L
Hct 29.1 L
Plt Count 148
Sodium 140
Potassium 4.0
Chloride 101
Carbon Dioxide 34 H
BUN 17
Creatinine 0.7
Glucose 106 H
Calcium 8.7
Total Bilirubin 0.6
AST 19
ALT 14
Alkaline Phosphatase 77
Vital Signs:
max temp for 24 hours
04/25/23
23:55
Temp 98.7 F
Vital Signs
Temp Pulse Resp BP Pulse Ox
97.7 F 57 20 146/84 93
04/26/23 07:37 04/26/23 06:00 04/26/23 00:00 04/26/23 06:00 04/26/23 02:08
I&O
04/25/23 04/26/23 04/27/23
06:59 06:59 06:59
Intake Total 240 / 240
Output Total
Balance 240 / 240
Review of Systems
-
All other systems: Reviewed and negative
Abdomen/GI: Denies Abdominal Pain
Physical Exam
-
General: Well Developed, Well Nourished and No Apparent Distress
HEENT: Normocephalic, Atraumatic and Oxygen
Respiratory: Rhonchi (at bases bilaterally)
Cardiac: Regular Rhythm, S1/S2 and Murmur
GI: Soft, Nontender, Nondistended, Normal Bowel Sounds and Other (large abdominal wall ventral hernia (firm to palpation))
Musculoskeletal: No Clubbing, No Cyanosis and No Edema
Skin: Warm
Neuro: Awake and Alert
Psych: Calm
--- NOTE | 2023-04-26 08:26 | CM ---
Addendum entered by Angie Ballard 04/26/23 08:34:
[employer] is the name of the home O2 company.
Original Note:
Patient seen at bedside with physician. Patient states that she lives in an apartment at [facility]. Patient moved from [place] recently ( a [place] community) and originally lived in [place]. Patient states that she is driving, uses [facility] in [facility] and
has a walker, wheelchair and cane at home. Patient has home O2 phone number for O2 is [phone] [facility]. Patient son is her POA and her PCP is Dr. Muller. Patient last hospitalization was in [place]. and she was prescribed O2 at that time.
Patient has not had any VN services since she moved to [facility]. CM will continue to follow for discharge planning needs.
Plan; home with VN; watch for VN needs.
[2023-04-26] MEDS: NORVASC 7.5 MG PO (11:16)
[2023-04-26] MEDS: JARDIANCE 10 MG PO (11:16)
--- NOTE | 2023-04-26 15:06 | PTCARENOTE ---
pateint taking via stretcher to IR for paracentesis pt on 3L of oxygen, pt's base line
--- NOTE | 2023-04-26 15:54 | PTCARENOTE ---
Addendum entered by Marguerite Zapata RN 04/26/23 16:24:
per transfer report 900 mls bloody abdominal fluid drained
Original Note:
patient returned from paracentesis . RT side of abdomen, puncture side of paracentesis covered with bandage . Area dry no bleeding no drainage .
[2023-04-26 15:55] LABS: Body Fluid Mononuclear 60.6 %; Body Fluid Polymorphonuclear 39.4 %; Body Fluid WBC 4338 /CUMM
[2023-04-26 15:57] LABS: Body Fluid Albumin 2.3 g/dl
[2023-04-26 16:04] LABS: Body Fluid Second Tech DW
[2023-04-26] MEDS: SENOKOT-S PO (19:08)
[2023-04-26] MEDS: CRESTOR 10 MG PO (21:35)
[2023-04-27] VITALS (11 sets, daily range): BP systolic 133–167; BP diastolic 74–105; BMI 32.8
--- NOTE | 2023-04-27 06:19 | PTCARENOTE ---
04/25 received patient from dayshift RN, assessments completed and charted, pt oob in chair, ambulating room with tele pack, able to use BR with zero assistance. pt offers no c/o pain, no shortness of breath or difficulty breathing with
ambulation.. patient has been eating/drinking with no c/o nausea or any vomiting noted.
voiding on own with no difficulty.
pt had 3 bm yesterday, so senna was refused this evening.
04/26 - pt resting comfortably all night, spoke with house BENEFITS ANALYST, since no am labs were ordered, according to transportation driver no new labs for this am were needed. phone and personal belongings with in reach at all times.
[2023-04-27] MEDS: NORVASC 7.5 MG PO (08:09)
[2023-04-27] MEDS: MIRALAX 17 GRAMS PO (08:09)
[2023-04-27] MEDS: JARDIANCE 10 MG PO (08:09)
[2023-04-27] MEDS: TYLENOL 650 MG PO ×2 (08:10→15:34)
[2023-04-27] MEDS: SENOKOT-S PO (08:10)
--- NOTE | 2023-04-27 08:19 | W.PN.HOSP.TC ---
Today's Communication/Plan
-
check lipase (midepigastric abdominal pain)
d/c planning
await surgery input--HGB up--? need for further imaging?
Assessment / Plan
Assessment / Plan
pt is an 82 year old female
Abdominal pain possibly secondary to ruptured hepatic cyst (hx of liver cyst) with ascites and hemoperitoneum and acute blood loss anemia--Follow up CT angio without active bleed --HGB low of 7.3--received 2 units pRBC--now HGB up to 9.5--s/p
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
Chronic large incisional hernia--CT scan shows that there is central/left paracentral mid to lower abdominal wall hernia defect measuring 5 cm with hernia sac measuring 16 cm continue segment of transverse colon.� There is ascites within the hernia
sac consistent with hemoperitoneum.�Nonspecific mild soft tissue stranding of fat within the hernia sac
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
History of chronic heart failure, unknown type--restart Jardiance and toprol
COPD with chronic hypoxic respiratory failure on 3 L at baseline--Cont O2 support
Essential hypertension--restart amlodipine and metoprolol
History of kidney cyst
Anxiety/depression--Continue paroxetine
Incidental finding of possible small right breast mass--Pt aware and states that it is a cyst--Recommend outpatient mammography or further investigation
systolic heart murmur on exam-- echo pending
code status --Full code
DVT prophylaxis�SCDs
PT/OT
transfer to tele
Anticipated Discharge: 24 - 48 hours
Subjective/Interval History
-
Date of Service: April 27, 2023
pt c/o abdominal pain--can't describe, not as bad as on admission....
Objective Data
-
Vital Signs:
max temp for 24 hours
04/26/23
19:26
Temp 98.8 F
Vital Signs
Temp Pulse Resp BP Pulse Ox
98.1 F 83 16 153/82 98
04/27/23 07:50 04/27/23 06:11 04/26/23 15:40 04/27/23 04:00 04/26/23 20:00
I&O
04/26/23 04/27/23 04/28/23
06:59 06:59 06:59
Intake Total 240 / 240 960 / 960
Balance 240 / 240 960 / 960
Review of Systems
-
All other systems: Reviewed and negative
Abdomen/GI: Reports Abdominal Pain; Denies Nausea or Vomiting
Physical Exam
-
General: Well Developed, Well Nourished and No Apparent Distress
HEENT: Normocephalic and Atraumatic
Respiratory: Clear to Auscultation; Negative Wheezes, Rales, Rhonchi or Crackles
Cardiac: Regular Rhythm and S1/S2; Negative Murmur
GI: Soft, Nondistended, Normal Bowel Sounds, Tender and Other (large abdominal wall hernia--midepigastric abdominal pain to palpation)
Musculoskeletal: No Clubbing, No Cyanosis and No Edema
Neuro: Awake
Psych: Calm
--- NOTE | 2023-04-27 08:22 | CM ---
Addendum entered by Angie Ballard 04/27/23 15:16:
Requested to come back to see patient, as she is asking for discharge. CM reviewed plan and will send referral to [facility] for VN. Patient has innogen with her and nurse assisted to charge it. Patient son to transport home and per patient will
be here to take her home. Patient completed IMM and signed form placed on chart. CM will continue to follow for discharge planning needs.
Plan; home with VN; referral to be sent to [facility]
Original Note:
Patient seen at bedside with physician. Patient c/o pain. Patient plan remains to return home with possible VN at [facility] with home O2 from [employer]. CM will continue to follow for discharge planning needs.
Plan; home with home health from [facility].
--- NOTE | 2023-04-27 09:51 | W.PN.GS2 ---
Today's Communication / Plan
-
-- No changes
Assessment / Plan
-
Patient is an 82 yo F p/w abdominal pain found to have hemoperitoneum likely secondary to a ruptured hepatic cyst. Hemoglobin now stable. Repeat CT scan does not demonstrate any active arterial bleeding. Peritoneal fluid likely a combination of
serous fluid from cyst plus blood from liver. Continue to hold Eliquis. Tolerating a diet and no signs of an ileus with passage of flatus.
Paracentesis (04/25) removal of 900 cc bl meds.oody serous fluid
-- No acute surgical intervention at this time.
-- Continue bowel regimen MiraLAX daily.
-- Hold Eliquis, Trend Hb daily
-- Regular diet
General surgery will continue to follow peripherally.
Subjective Data
-
Date of Service: April 27, 2023
Abdominal discomfort this a.m. Resolved with PO intake. No nausea or vomiting. Passing flatus and BMs. No dizziness or lightheadedness.
Objective Data
-
Intake and Output
04/26/23 04/27/23 04/28/23
06:59 06:59 06:59
Intake Total 240 / 240 960 / 960
Balance 240 / 240 960 / 960
Intake:
Oral fluids 240 / 240 960 / 960
Other:
Number of approximated SMALL 1
amounts of urine
Number of approximated LARGE 1
amounts of urine
How many times incontinent 1 1
SATURATED amount urine
Vital Signs
Temp Pulse Resp BP Pulse Ox
98.1 F 83 16 153/82 98
04/27/23 07:50 04/27/23 06:11 04/26/23 15:40 04/27/23 04:00 04/26/23 20:00
Calcium 8.7 mg/dl (8.4-10.2) 04/26/23 03:39
Magnesium 2.4 mg/dl (1.6-2.3) H 04/26/23 03:39
Total Bilirubin 0.6 mg/dl (0.2-1.3) 04/26/23 03:39
AST 19 U/L (14-36) 04/26/23 03:39
ALT 14 U/L (0-35) 04/26/23 03:39
Alkaline Phosphatase 77 U/L (38-126) 04/26/23 03:39
Total Protein 5.6 g/dl (6.3-8.2) L 04/26/23 03:39
Albumin 3.3 g/dl (3.5-5.0) L 04/26/23 03:39
Physical Exam
-
Gen: NAD
Abd: obese, soft, NT, non-peritoneal
[2023-04-27 11:02] LABS: % Basophils 0.3 % (0-2); % Eosinophils 3.2 % (0-6); % Immature Granulocytes 0.6 % (0-0.5); % Lymphocytes 10.6 % (20.5-51.1); % Monocytes 7.4 % (1.7-9.3); % Neutrophils 77.9 % (42.2-75.2); Absolute Eosinophils 0.2 10^3/uL (0-0.7); Absolute Lymphocytes 0.7 10^3/uL (1.2-3.4); Absolute Monocytes 0.5 10^3/uL (0.1-0.6); Absolute Neutrophils 5.3 10^3/uL (1.4-6.5); Hematocrit 33.3 % (37.0-47.0); Hemoglobin 10.9 g/dL (12.0-16.0); Mean Corp Hgb Conc. 32.7 g/dL (33.0-37.0); Mean Corpuscular Hgb 29.7 pg (27.0-31.0); Mean Corpuscular Volume 90.7 fL (81.0-99.0); Mean Platelet Volume 9.6 fL (7.4-10.4); Nucleated Red Blood Cells % 0 %; Platelet Count 210 10^3/uL (130-400); Red Blood Cell Count 3.67 10^6/uL (4.20-5.40); Red Cell Dist. Width 13.4 % (11.5-14.5); White Blood Cell Count 6.8 10^3/uL (4.8-10.8)
[2023-04-27 11:42] LABS: ALT (SGPT) 17 U/L (0-35); AST (SGOT) 25 U/L (14-36); Alkaline Phosphatase 88 U/L (38-126); Blood Urea Nitrogen 12 mg/dl (7-17); Calcium 9.2 mg/dl (8.4-10.2); Carbon Dioxide 32 mmol/L (22-30); Chloride 103 mmol/L (98-107); Estimated Creatinine Clearance 63 ml/min; Glucose 123 mg/dl (70-99); Lipase 115 U/L (23-300); Potassium 3.5 mmol/L (3.5-5.1); Sodium 140 mmol/L (135-145); Total Bilirubin 0.8 mg/dl (0.2-1.3); Total Protein 6.7 g/dl (6.3-8.2); eGFR > 60.00
--- NOTE | 2023-04-27 11:45 | PTCARENOTE ---
At pt request, ambulated around entire floor. Not a big appetite, but tolerated breakfast. Has not ordered lunch as yet. Tele bed pending/
[2023-04-27] MEDS: SENOKOT-S 1 TABLET PO (19:35)
[2023-04-27] MEDS: ELIQUIS 5 MG PO (19:35)
[2023-04-27] MEDS: LOPRESSOR 12.5 MG PO (19:45)
--- NOTE | 2023-04-27 19:45 | PTCARENOTE ---
Rec'd pt sitting on chair, oriented, cooperative, amb in [place] w/ 02 3liters nc accomp by RN- keon well, SR/ sinus aaron w/ pac's, bp elevated, lopressor 12.5 mg po given as ordered, + pulses, + LE edema, o2 3liters nc, lungs decr in bases, sat 95, +
bowel sounds, abd w/ lg hernia, keon diet, voids in bathroom
[2023-04-27] MEDS: CRESTOR 10 MG PO (21:49)
--- NOTE | 2023-04-27 23:54 | PTCARENOTE ---
resting comf, no changes in assessment
[2023-04-28] VITALS (9 sets, daily range): BP systolic 136–160; BP diastolic 69–98; PULSE 60; O2SAT 96; BMI 31.6
[2023-04-28 03:54] LABS: Hematocrit 29.7 % (37.0-47.0); Hemoglobin 9.8 g/dL (12.0-16.0); Mean Corpuscular Hgb 30.3 pg (27.0-31.0); Mean Platelet Volume 9.5 fL (7.4-10.4); Platelet Count 205 10^3/uL (130-400); Red Blood Cell Count 3.23 10^6/uL (4.20-5.40); Red Cell Dist. Width 13.3 % (11.5-14.5); White Blood Cell Count 5.2 10^3/uL (4.8-10.8)
--- NOTE | 2023-04-28 04:25 | PTCARENOTE ---
awake diaphoretic, ' I ususally wake up every night diaphoretic', temp 98
[2023-04-28 04:27] LABS: Blood Urea Nitrogen 12 mg/dl (7-17); Carbon Dioxide 32 mmol/L (22-30); Chloride 103 mmol/L (98-107); Estimated Creatinine Clearance 62 ml/min; Glucose 107 mg/dl (70-99); Magnesium 2.2 mg/dl (1.6-2.3); Sodium 140 mmol/L (135-145); eGFR > 60.00
--- NOTE | 2023-04-28 07:20 | W.PN.HOSP.TC ---
Today's Communication/Plan
-
see A/P
Assessment / Plan
Assessment / Plan
pt is an 82 year old female
Abdominal pain possibly secondary to ruptured hepatic cyst (hx of liver cyst) with ascites and hemoperitoneum and acute blood loss anemia--Follow up CT angio without active bleed --HGB low of 7.3--received 2 units pRBC--now HGB up to 9.8--s/p
Kcentra to reverse [employer] Eliquis--apprec gen surgery--no surgical intervention at this time-- abdominal US with ascites, s/p 900 ml paracentesis 04/25, dark bloody ascitic fluid evacuated with significant WNC/neutrophils, will cover with empiric
ceftriaxone/flagyl for SBP.
Resumed Eliquis, cont to monitor for bleeding, Hgb dropped from 10.9 to 9.8 today
Chronic large incisional hernia--CT scan shows that there is central/left paracentral mid to lower abdominal wall hernia defect measuring 5 cm with hernia sac measuring 16 cm continue segment of transverse colon.� There is ascites within the hernia
sac consistent with hemoperitoneum.�Nonspecific mild soft tissue stranding of fat within the hernia sac
History of pulmonary embolism x2 in distant past--s/p Kcentra. Resumed [employer] [facility] Eliquis
History of chronic heart failure, unknown type--restarted Jardiance and toprol
COPD with chronic hypoxic respiratory failure on 3 L at baseline--Cont O2 support
Essential hypertension--restart amlodipine and metoprolol
History of kidney cyst
Anxiety/depression--Continue paroxetine
Incidental finding of possible small right breast mass--Pt aware and states that it is a cyst--Recommend outpatient mammography or further investigation
systolic heart murmur on exam-- echo pending
code status --Full code
DVT prophylaxis�SCDs
PT/OT
transfer to tele
DW RN
DW son on the phone
Anticipated Discharge: Within 24 hours
Subjective/Interval History
-
Date of Service: April 28, 2023
Objective Data
-
Labs:
Laboratory Results
04/28/23
03:44
WBC 5.2
Hgb 9.8 L
Hct 29.7 L
Plt Count 205
Sodium 140
Potassium 4.0
Chloride 103
Carbon Dioxide 32 H
BUN 12
Creatinine 0.6
Glucose 107 H
Calcium 9.0
Vital Signs:
Vital Signs
Temp Pulse Resp BP Pulse Ox
36.6 C 76 20 136/69 98
04/28/23 04:00 04/28/23 06:00 04/28/23 04:00 04/28/23 03:37 04/28/23 04:00
I&O
04/27/23 04/28/23 04/29/23
06:59 06:59 06:59
Intake Total 960 / 960 340 / 340
Balance 960 / 960 340 / 340
Review of Systems
-
All other systems: Reviewed and negative
Physical Exam
-
General: Well Developed, Well Nourished and Respiratory Distress (chronic)
HEENT: Normocephalic, Atraumatic and Oxygen (3L NC)
Respiratory: Clear to Auscultation and Non Labored Respirations; Negative Wheezes, Rales, Rhonchi, Crackles or Accessory Resp Muscle Use
Cardiac: Regular Rhythm and S1/S2; Negative Murmur
GI: Soft, Nondistended, Normal Bowel Sounds, Tender and Other (large abdominal wall hernia)
Musculoskeletal: No Clubbing, No Cyanosis and No Edema
Neuro: Awake
Psych: Calm and Intact Judgement/Insight
Data Reviewed
-
Labs: Labs Reviewed by me
[2023-04-28] MEDS: ELIQUIS 5 MG PO ×2 (08:19→20:11)
[2023-04-28] MEDS: SENOKOT-S 1 TABLET PO ×2 (08:19→20:11)
[2023-04-28] MEDS: MIRALAX 17 GRAMS PO (08:19)
[2023-04-28] MEDS: FLAGYL 500 MG 100 IV ×2 (08:19→16:37)
[2023-04-28] MEDS: NORVASC 7.5 MG PO (08:19)
[2023-04-28] MEDS: JARDIANCE 10 MG PO (08:19)
[2023-04-28] MEDS: ROCEPHIN 2000 MG IV ×2 (08:20→20:11)
[2023-04-28] MEDS: STERILE WATER FOR INJECTION 20 ML IV ×2 (08:20→20:11)
[2023-04-28] MEDS: TOPROL XL 25 MG PO (10:13)
--- NOTE | 2023-04-28 16:35 | CM ---
Patient seen with patient son also present. Plan is for patient to go to her apartment with [facility]. Patient son expressing concerns about patient forgetfulness and medication administration. OT to do cog testing. Patient eager to go home
and get out of the hospital. IMM completed yesterday. CM will continue to follow for discharge planning needs.
Plan; home with [facility]; confirm acceptance in all scripts.
[2023-04-28] MEDS: TYLENOL 650 MG PO (16:38)
--- NOTE | 2023-04-28 17:23 | PTCARENOTE ---
Pt reported taking valsartan as outpt when it was mentioned that bp on higher side. Reviewed home medication list in computer that did not contain valsartan. Pt pulled up list on phone that had valsartan listed, but pharmacy noted no active rx in
computer review. Called pharmacy at [facility] and confirmed pt has not been receiving valsartan. Pt also did not mention taking lasix which was reported by pharmacy, but when asked about it, she said she does take it. Home medication list
updated. Son was in to visit and confirmed there have been memory issues, as well as nonsensical texting received from pt at times. Case management in to speak with son at his request, and also asked for bcat to be ordered. Dr Saeed roth and
asked that issues be addressed in am. Will pass along in shift report.
[2023-04-28] MEDS: CRESTOR 10 MG PO (21:42)
[2023-04-29] VITALS (9 sets, daily range): BP systolic 131–175; BP diastolic 58–98; BMI 31.0
[2023-04-29] MEDS: FLAGYL 500 MG 100 IV ×2 (00:08→07:47)
--- NOTE | 2023-04-29 01:03 | PTCARENOTE ---
Assumed care of patient at 1945. Patient oob in chair. Ambulatory in room ad marcia. AAOx3. Anxious and forgetful at times. SB with rate in the 40-50's on tele monitor. +Murmur. +2 edema in b/l LE. Palpable pulses. POX 95% on 3L nc (pt's baseline).
Lung sounds diminished in bases. Abdomen round/visible hernia. Denies pain. Call agarwal within reach. VSS.
[2023-04-29 05:06] LABS: Hematocrit 32.4 % (37.0-47.0); Hemoglobin 10.5 g/dL (12.0-16.0); Mean Corp Hgb Conc. 32.4 g/dL (33.0-37.0); Mean Corpuscular Hgb 29.7 pg (27.0-31.0); Mean Corpuscular Volume 91.8 fL (81.0-99.0); Mean Platelet Volume 9.3 fL (7.4-10.4); Platelet Count 240 10^3/uL (130-400); Red Blood Cell Count 3.53 10^6/uL (4.20-5.40); Red Cell Dist. Width 13.4 % (11.5-14.5); White Blood Cell Count 6.8 10^3/uL (4.8-10.8)
--- NOTE | 2023-04-29 05:25 | PTCARENOTE ---
Pt's BP elevated after ambulating to bathroom to void and get washed up. Once settled back in bed, BP down to 131/78.
[2023-04-29 05:32] LABS: Blood Urea Nitrogen 18 mg/dl (7-17); Calcium 9.1 mg/dl (8.4-10.2); Carbon Dioxide 31 mmol/L (22-30); Chloride 102 mmol/L (98-107); Estimated Creatinine Clearance 53 ml/min; Glucose 106 mg/dl (70-99); Magnesium 2.3 mg/dl (1.6-2.3); Potassium 4.3 mmol/L (3.5-5.1); Sodium 143 mmol/L (135-145); eGFR > 60.00
[2023-04-29] MEDS: MIRALAX 17 GRAMS PO (07:45)
[2023-04-29] MEDS: ROCEPHIN 2000 MG IV (07:45)
[2023-04-29] MEDS: STERILE WATER FOR INJECTION 20 ML IV (07:45)
[2023-04-29] MEDS: NORVASC 7.5 MG PO (07:46)
[2023-04-29] MEDS: JARDIANCE 10 MG PO (07:46)
[2023-04-29] MEDS: SENOKOT-S 1 TABLET PO (07:46)
[2023-04-29] MEDS: TOPROL XL 25 MG PO (07:46)
[2023-04-29] MEDS: ELIQUIS 5 MG PO (07:47)
--- NOTE | 2023-04-29 08:20 | W.PN.HOSP.TC ---
Today's Communication/Plan
-
OT for cognitive assessment
d/c planning
Assessment / Plan
Assessment / Plan
pt is an 82 year old female
Abdominal pain possibly secondary to ruptured hepatic cyst (hx of liver cyst) with ascites and hemoperitoneum and acute blood loss anemia--Follow up CT angio without active bleed --HGB low of 7.3--received 2 units pRBC--now HGB up to 9.8--s/p
Kcentra to reverse [employer] A[employer] SPECIAL[facility] Eliquis--apprec gen surgery--no surgical intervention at this time-- abdominal US with ascites, s/p 900 ml paracentesis 04/25, dark bloody ascitic fluid evacuated with significant WNC/neutrophils, will cover with empiric
ceftriaxone/flagyl for SBP, can stop--Resumed Eliquis, cont to monitor for bleeding, Hgb dropped from 10.9 to 9.8 back to 10.5
Chronic large incisional hernia--CT scan shows that there is central/left paracentral mid to lower abdominal wall hernia defect measuring 5 cm with hernia sac measuring 16 cm continue segment of transverse colon.� There is ascites within the hernia
sac consistent with hemoperitoneum.�Nonspecific mild soft tissue stranding of fat within the hernia sac
History of pulmonary embolism x2 in distant past--s/p Kcentra. 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
History of chronic heart failure, unknown type--restarted Jardiance and toprol
COPD with chronic hypoxic respiratory failure on 3 L at baseline--Cont O2 support
Essential hypertension--restart amlodipine and metoprolol
History of kidney cyst
Anxiety/depression--Continue paroxetine
Incidental finding of possible small right breast mass--Pt aware and states that it is a cyst--Recommend outpatient mammography or further investigation
systolic heart murmur on exam-- echo pending
code status --Full code
DVT prophylaxis�SCDs
PT/OT
transfer to tele
OK for d/c--OT to assess for cognitive issues prior to d/c
Anticipated Discharge: Today
Subjective/Interval History
-
Date of Service: April 29, 2023
pt HGB improved today--no abdominal pain
Objective Data
-
Labs:
Laboratory Results
04/29/23
04:50
WBC 6.8
Hgb 10.5 L
Hct 32.4 L
Plt Count 240
Sodium 143
Potassium 4.3
Chloride 102
Carbon Dioxide 31 H
BUN 18 H
Creatinine 0.7
Glucose 106 H
Calcium 9.1
Vital Signs:
max temp for 24 hours
04/28/23
23:59
Temp 98.6 F
Vital Signs
Temp Pulse Resp BP Pulse Ox
97.6 F 56 18 147/58 98
04/29/23 07:58 04/29/23 07:58 04/29/23 07:58 04/29/23 07:58 04/29/23 07:58
I&O
04/28/23 04/29/23 04/30/23
06:59 06:59 06:59
Intake Total 340 / 340 460 / 460
Balance 340 / 340 460 / 460
Review of Systems
-
All other systems: Reviewed and negative
Physical Exam
-
General: Well Developed, Well Nourished and No Apparent Distress
HEENT: Normocephalic, Atraumatic and Oxygen
Respiratory: Clear to Auscultation; Negative Wheezes, Rales, Rhonchi or Crackles
Cardiac: Regular Rhythm and S1/S2; Negative Murmur
GI: Soft, Nontender, Nondistended and Normal Bowel Sounds
Musculoskeletal: No Clubbing, No Cyanosis and No Edema
Neuro: Awake and Alert
Psych: Calm
--- NOTE | 2023-04-29 10:30 | PTCARENOTE ---
pt is awake and alert , forgetful at times , SB-NSR on monitor, tolerating diet, pt seen by Dr Ogden , pt consulted for OT for a neuro cognitive exam prior to DC , labs noted hemoglobin stable 10.5
--- NOTE | 2023-04-29 11:44 | PTCARENOTE ---
pt is written for DC , plan for son to merchandise pickup/receiving associate patient and transport to [facility]
--- NOTE | 2023-04-29 11:47 | CM ---
CM following re: discharge planning.
Reviewed pt's chart, met with pt.
Discharge order noted. Pt is aware, expressed her agreement with discharge. IMM reviewed, placed in chart, pt has a copy. Pt stated her son Bartolome will transport her home.
Pt reports she lives alone in an independent apartment at [facility], has home O2 and uses 3: NC at baseline. Pt is known to [facility].
A referral to [facility] noted.
Please fax discharge instructions to [facility] ar [phone]
D/C plan: return back to her independent apartment at [facility] with [facility] and family support. Son to transport.
No other discharge needs identified.
--- NOTE | 2023-04-29 14:25 | W.DCSUMMARY ---
Discharge Summary
Discharge Data
Date of Admission: 04/23/23
Date of Discharge: 04/29/23
-
Pending Results: No
Hospital Course
Primary care physician : Fanta Muller
Principal Discharge diagnosis : Abdominal pain with acute blood loss anemia due to ruptured hepatic cyst, incidental finding of possible small right breast mass
Chronic Discharge diagnosis : Chronic large incisional hernia, history of pulmonary embolism x 2 in the distant past, history of chronic diastolic congestive heart failure without exacerbation, chronic obstructive pulmonary disease with chronic
hypoxemic respiratory failure on 3 L at baseline, essential hypertension, history of kidney cyst, anxiety/depression
Hospital Course : Patient was an 82-year-old female with a history of pulmonary embolism, diastolic congestive heart failure and chronic hypoxemic respiratory failure with 3 L of oxygen at baseline who presented with abdominal pain which started the
night prior to admission. This came on relatively suddenly but was diffusely over her abdomen. She denied any radiation to the back or chest. She did have nausea but no vomiting. She has a history of an abdominal hernia after which is
quite large. She has declined hernia surgery because she was afraid of complications of the mesh. Patient has been on anticoagulation for 2 episodes of pulmonary embolism in the past. Patient was admitted.
Problem #1: Abdominal pain with acute blood loss anemia due to ruptured hepatic cyst. Patient was admitted to the intensive care unit. Hemoperitoneum and ascites were found post bleed. CAT scan of the abdomen and pelvis with angiography did not
show any active bleeding. Hemoglobin was a low of 7.3. She received 2 units of packed red blood cells in total. Kcentra was given to reverse the Eliquis and the Eliquis was on hold. Patient was seen in consultation by general surgery but there
was no surgical intervention needed. The patient did have an abdominal ultrasound done which showed moderate ascites, and the patient did have 900 mL paracentesis of serosanguineous fluid removed. Patient was initially covered for SBP with empiric
ceftriaxone and Flagyl. There is no evidence of SBP and these antibiotics were discontinued. Eliquis was restarted on April 27, 2023 with a hemoglobin of 10.9. She did drop her hemoglobin to 9.8 on April 28, 2023 but has since improved back to
10.5 on the day of discharge. Tali was restarted in-house to monitor for any recurrent bleeding which she did not have.
Problem #2: Incidental finding of possible small right breast mass. Patient stated that she was aware of this finding and stated that it was a cyst. Nevertheless, outpatient mammography is recommended.
Problem #3: All other medical issues. These include Chronic large incisional hernia, history of pulmonary embolism x 2 in the distant past, history of chronic diastolic congestive heart failure without exacerbation, chronic obstructive pulmonary
disease with chronic hypoxemic respiratory failure on 3 L at baseline, essential hypertension, history of kidney cyst, anxiety/depression. These medical issues were stable during her hospitalization. Medications were continued as able.
Patient was seen in consultation by physical therapy and Occupational Therapy (for cognitive issues as well). Patient will be going home with visiting nurses, PT/OT. Patient is stable for discharge home at this time. If there are any questions
regarding this dictation or her hospital stay, please not hesitate to call. Our office number is [phone].
Time for discharge 36 minutes.
Important imaging findings :
INITIAL CT SCAN ABDOMEN/PELVIS IMPRESSION:
Findings highly suspicious for large right hepatic cyst with possible cyst perforation.
Moderate ascites in the abdomen and pelvis, some which contains dependent increased attenuation fluid, suggesting hemorrhage. However, no active extravasation of intravascular contrast is identified.
Central/left paracentral mid to lower abdominal wall hernia defect measuring 5 cm transverse, with hernia sac measuring 16 cm, containing a segment of transverse colon. There is ascites within the hernia sac, some of which is increased attenuation,
consistent with hemoperitoneum. Nonspecific mild soft tissue stranding of the fat within the hernia sac as well as mild irregular thickening of the margins of the hernia sac, and adjacent/surrounding edema within the subcutaneous fat.
Moderate to advanced sigmoid diverticulosis. Mild diverticulosis of the descending colon. No evidence of acute diverticulitis.
No evidence to suggest bowel obstruction.
No free air. No focal collection or abscess.
Right inguinal hernia with fluid and probable hemorrhage/thrombus.
Mild parenchymal consolidation in the posterior left lung base, which could represent scarring, atelectasis, or pneumonia.
Possible small right breast mass. Recommend correlation with mammography.
CT ANGIOGRAM IMPRESSION:
Limited by residual intraluminal enteric contrast material, as described.
As far as visualized in the descending colon and rectosigmoid colon, as well as the stomach and small bowel, no apparent suggest active gastrointestinal hemorrhage.
In addition, there is no evidence of acute intraperitoneal hemorrhage.
Procedure findings :
PARACENTESIS FINDINGS: 900 cc of dark bloody ascitic fluid was evacuated. Samples sent for analysis as requested.
Successful ultrasound guided diagnostic and therapeutic paracentesis.
Discharge Plan
-
Patient Disposition: Home with Home Care
Discharge Diagnosis/Procedures: Abdominal pain secondary to ruptured hepatic cyst with ascites and hemoperitoneum, acute blood loss anemia, chronic large incisional hernia, history of pulmonary embolism x 2 in the past, history of unknown type
chronic heart failure, chronic obstructive pulmonary disease with chronic hypoxemic respiratory failure, essential hypertension, anxiety/depression, small right breast mass
Condition: Good
Diet: As tolerated
Activity: As tolerated
Driving Restrictions: Not until seen by your Dr
Bathing Restrictions: None
Other Services: VN, PT and OT
Activity Restrictions/Additional Instructions:
will need to schedule outpatient MAMMOGRAM for small right breast mass--pt aware needs to do this
Referrals:
Milagros Ordonez, [Active] - (4-6 weeks, PFTs)
Fanta Muller MD [Family Provider] - in less than 1 week
Prescriptions:
New
polyethylene glycol 3350 [HealthyLax] 17 gram Powder In Packet
17 g PO DAILY Qty: 0 0RF
sennosides-docusate sodium [Stool Softener-Stimulant Laxat] 8.6-50 mg Tablet
1 tab PO BID Qty: 0 0RF
Continued
Eliquis 5 mg Tablet
5 mg PO BID
amlodipine [Norvasc] 2.5 mg Tablet
7.5 mg PO DAILY
metoprolol succinate [Toprol XL] 25 mg Tablet Extended Release 24 Hr
25 mg PO DAILY
Rx Instructions:
pt reports only taking when hr above 65, which is most day
paroxetine HCl [Paxil CR] 25 mg Tablet Extended Release 24 Hr
50 mg PO DAILY
Rx Instructions:
take in am with one tablet of 12.5mg er
paroxetine HCl [Paxil CR] 12.5 mg Tablet Extended Release 24 Hr
12.5 mg PO DAILY
Rx Instructions:
take in am with two 25mg er tablets
rosuvastatin [Crestor] 10 mg Tablet
10 mg PO HS
Jardiance 10 mg Tablet
10 mg PO DAILY
furosemide 40 mg Tablet
40 mg PO BID
Discharge Orders:
Discharge Patient (As Directed); Ordered 04/29/23
Ordered By: Kayli Ogden
--- NOTE | 2023-04-29 14:53 | PTCARENOTE ---
pt son here to take pt back to [facility] , self care , both were given DC instructions and verbalized understanding , IV removed , belongings returned
== END 2023-04-29 14:40 | disposition home health service (06) | DRG 441 ==
LOC: ICU 21:42
PROVIDERS: Emergency Medicine; Internal Medicine; Nurse Practitioner Family; Radiology Diagnostic Radiology; ADMITTING PHYSICIAN Hospitalist; ATTENDING PHYSICIAN Internal Medicine; CONSULT PHYSICIAN Surgery; EMERGENCY PHYSICIAN Emergency Medicine; FAMILY PHYSICIAN Internal Medicine Geriatric Medicine; OTHER PHYSICIAN Internal Medicine
PROC: 30283B1 Transfusion of Nonautologous 4-Factor Prothrombin Complex Concentrate into Vein, Percutaneous Approach (ICD-10-PCS; 2023-04-23)
PROC: 30233N1 Transfusion of Nonautologous Red Blood Cells into Peripheral Vein, Percutaneous Approach (ICD-10-PCS; 2023-04-24)
PROC: 0W9G3ZZ Drainage of Peritoneal Cavity, Percutaneous Approach (ICD-10-PCS; 2023-04-26)
DX: K76.89 Other specified diseases of liver (principal); K66.1 Hemoperitoneum; D62 Acute posthemorrhagic anemia; I50.32 Chronic diastolic (congestive) heart failure; E87.1 Hypo-osmolality and hyponatremia; E87.3 Alkalosis; R18.8 Other ascites; J96.11 Chronic respiratory failure with hypoxia; I11.0 Hypertensive heart disease with heart failure; J44.9 Chronic obstructive pulmonary disease, unspecified; K43.2 Incisional hernia without obstruction or gangrene; F32.A Depression, unspecified; F41.9 Anxiety disorder, unspecified; N63.10 Unspecified lump in the right breast, unspecified quadrant; N28.1 Cyst of kidney, acquired; R01.1 Cardiac murmur, unspecified; E11.9 Type 2 diabetes mellitus without complications; E78.00 Pure hypercholesterolemia, unspecified; K59.00 Constipation, unspecified; K40.90 Unilateral inguinal hernia, without obstruction or gangrene, not specified as recurrent; Z79.01 Long term (current) use of anticoagulants; Z79.84 Long term (current) use of oral hypoglycemic drugs; Z79.899 Other long term (current) drug therapy; Z86.711 Personal history of pulmonary embolism; Z87.891 Personal history of nicotine dependence; Z99.81 Dependence on supplemental oxygen
CPT/HCPCS: 88305; 49083; 71045; 74174; 74177; 76705; 80048; 80053; 82042; 82805; 83605; 83690; 83735; 85014; 85018; 85025; 85027; 85610; 85730; 86850; 86900; 86901; 86920; 87015; 87070; 87205; 88112; 89051; 93005; 93306; 96374; 96375; 96376; 97110; 97116; 97129; 97162; 97166; 99291; J7168; P9016; Q9967

== ENCOUNTER → 2023-10-12 13:33 | Outpatient (REF) | payer MEDICARE, BC, SELFPAY | LOC: RAD 13:33 | PROVIDERS: ATTENDING PHYSICIAN Internal Medicine Critical Care Medicine; FAMILY PHYSICIAN Internal Medicine Geriatric Medicine | DX: J98.4 Other disorders of lung (principal) | CPT/HCPCS: 71046 ==

== ENCOUNTER 2024-01-08 08:40 | Inpatient (IN) | payer MEDICARE, BC, SELFPAY ==
[2024-01-06] VITALS (9 sets, daily range): BP systolic 106–141; BP diastolic 62–98; BMI 33.1; BMI 34.2
[2024-01-06 16:12] LABS: % Basophils 0.4 % (0-2); % Eosinophils 0.5 % (0-6); % Immature Granulocytes 1.5 % (0-0.5); % Lymphocytes 7.8 % (20.5-51.1); % Monocytes 6.5 % (1.7-9.3); % Neutrophils 83.3 % (42.2-75.2); Absolute Immature Granulocytes 0.1 10^3/uL (0-0.05); Absolute Lymphocytes 0.6 10^3/uL (1.2-3.4); Absolute Monocytes 0.5 10^3/uL (0.1-0.6); Absolute Neutrophils 6.8 10^3/uL (1.4-6.5); Hematocrit 34.8 % (37.0-47.0); Hemoglobin 10.8 g/dL (12.0-16.0); Mean Corpuscular Hgb 29.4 pg (27.0-31.0); Mean Corpuscular Volume 94.8 fL (81.0-99.0); Mean Platelet Volume 9.7 fL (7.4-10.4); Nucleated Red Blood Cells % 0 %; Platelet Count 195 10^3/uL (130-400); Red Blood Cell Count 3.67 10^6/uL (4.20-5.40); Red Cell Dist. Width 12.9 % (11.5-14.5); White Blood Cell Count 8.2 10^3/uL (4.8-10.8)
[2024-01-06 16:20] LABS: ALT (SGPT) 26 U/L (0-35); AST (SGOT) 29 U/L (14-36); Albumin 4.2 g/dl (3.5-5.0); Alkaline Phosphatase 110 U/L (38-126); Blood Urea Nitrogen 19 mg/dl (7-17); Calcium 8.7 mg/dl (8.4-10.2); Carbon Dioxide 36 mmol/L (22-30); Chloride 97 mmol/L (98-107); Estimated Creatinine Clearance 37 ml/min; Glucose 118 mg/dl (70-99); Lipase 290 U/L (23-300); Potassium 3.1 mmol/L (3.5-5.1); Sodium 143 mmol/L (135-145); Total Bilirubin 0.9 mg/dl (0.2-1.3); Total Protein 6.5 g/dl (6.3-8.2)
[2024-01-06] MEDS: OMNIPAQUE 50 ML PO (16:53)
[2024-01-06] MEDS: DILAUDID 0.5 MG IV ×2 (16:54→22:44)
[2024-01-06] MEDS: ZOFRAN 4 MG IV (16:55)
--- NOTE | 2024-01-06 16:55 | ED.GENMED ---
History of Present Illness
General
Chief Complaint: Abdominal Pain
Source: patient
Exam Limitations: none
Time Seen by Provider: 01/06/24 16:36
Nursing documentation reviewed up to this point in time: agreed with
History of Present Illness
History of Present Illness:
Patient to ED wtih complalint of diffuse abdominal pain. Symptoms started approx 3 days ago and continue to worsen. Denies fever/chills. +nauses, no v/d. States she was admitted here in May for abdominal pain. States CT found a large cyst on
liver which had burst. She was admitted, transfused for anemia. Paracentesis was performed due to large amt of blood in abdomen from ruptured cyst. SHe states she has been well since. Her pain now is similar to pain from ruptured cyst. Brought
to ED via EMS for eval.
Past History
Past History
ED Past Medical History: CHF, COPD, GERD, HTN, Psychiatric (depression, anxiety, ventral hernia) and Other (PE on Eliquis, bowel obstruction, spinal stenosis,)
ED Past Surgical History: Gynecological
Social History
Tobacco: Non-smoker
Alcohol: None
Drug: None
Living: with family
Employment: Retired
Review of Systems
Review of Systems
Allergies reviewed?: Yes
All Other Systems: ROS reviewed and negative except as documented in HPI and ROS
Constitutional: Reports no symptoms
EENT: Reports no symptoms
Respiratory: Reports no symptoms
Cardiac: Reports no symptoms
ABD/GI: Reports abdominal pain (diffuse) and nausea
: Reports no symptoms
Musculoskeletal: Reports no symptoms
Skin: Reports no symptoms
Neurological: Reports no symptoms
Psychiatric: Reports no symptoms
Phy Exam
General Physical Exam
General Presentation: moderate distress
General age: appears stated age
General Skin: warm and dry
General Habitus: normal
General Mental: alert
Cardiovascular Exam
Cardiovascular Exam: regular rate/rhythm and no edema
Pulmonary Exam
Pulmonary Exam: lungs clear and no respiratory distress
Gastrointestinal Exam
Gastrointestinal Exam: normal bowel sounds, soft, no organomegaly and other (Large abdominal hernia)
Palpation: generalized: Moderate tenderness (Diffuse abdominal pain)
Musculoskeletal Exam
Musculoskeletal Exam: full ROM and neuro vasc intact
Skin Exam
Skin Exam: normal color, warm/dry and no rash
Psychiatric Exam
Psychiatric Exam: normal mood/affect
Course
Orders/Labs/Results
Orders:
Orders
01/06/24 15:49
Complete Blood Count/With Diff Urgent
Comprehensive Metabolic Panel Urgent
Lipase Urgent
01/06/24 16:48
CT Abd/pel W Iv And Oral Contr Urgent
Comment:
Reason For Exam: diffuse abd. .pain
HYDROmorphone [Dilaudid] 0.5 mg IV NOW STA
Iohexol [Omnipaque] See Protocol PO NOW STA
Ondansetron Injectable [Zofran] 4 mg IV NOW STA
01/06/24 16:49
0.9% Sodium Chloride 1000 ml [Nss] 1,000 ml IV BOLUS
01/06/24 16:50
Urinalysis Reflex To Culture Urgent
Date Specimen was Collected: 01/06/24
Time Specimen was Collected: 17:05
01/06/24 16:51
HYDROmorphone [Dilaudid] 0.5 mg .ROUTE .STK-MED ONE
Iohexol [Omnipaque] 50 ml .ROUTE .STK-MED ONE
Ondansetron Injectable [Zofran] 4 mg .ROUTE .STK-MED ONE
01/06/24 20:37
Potassium Chloride Powder [Klor-Con] 40 meq PO NOW STA
Potassium Chloride [KCl] 20 meq 0.9% Sodium Chloride 150 ml [Nss] 150 ml IV NOW
01/06/24 20:38
Admit/Transfer Patient As Directed
Co-Sign Provider:
Level of Care: Observation services
Assign to:: Medical/Surgical
Physician / Group: hospitalist
Diagnosis: abdominal pain
PRN Pain Medication Management As Directed
May give lesser potent ordered pain med per pt: Yes
preference::
Protocol:: Medication orders for pain may be administered in a
manner that supports deferring to patient preference
when the pt is:
- Requesting an ordered lesser potent pain medication.
Least to most potent pain medications are defined
as: acetaminophen < NSAID < tramadol < opioids
(morphine, oxycodone, hydromorphone).
- Requesting a lesser dose of the same medication IF
ORDERED.
- Requesting a less intrusive route of administration
if both routes are prescribed by the provider (PO <
IV).
01/06/24 20:39
Code Status As Directed
Resuscitation Status: Full Code
Abnormal Lab Results
01/06/24
15:49
RBC 3.67 L 10^6/uL
(4.20-5.40)
Hgb 10.8 L g/dL
(12.0-16.0)
Hct 34.8 L %
(37.0-47.0)
MCHC 31.0 L g/dL
(33.0-37.0)
Abs Immat Gran (auto) 0.1 H 10^3/uL
(0-0.05)
Absolute Neuts (auto) 6.8 H 10^3/uL
(1.4-6.5)
Absolute Lymphs (auto) 0.6 L 10^3/uL
(1.2-3.4)
Immature Gran % 1.5 H %
(0-0.5)
Neutrophils % 83.3 H %
(42.2-75.2)
Lymphocytes % 7.8 L %
(20.5-51.1)
Potassium 3.1 L mmol/L
(3.5-5.1)
Chloride 97 L mmol/L
(98-107)
Carbon Dioxide 36 H mmol/L
(22-30)
BUN 19 H mg/dl
(7-17)
Glucose 118 H mg/dl
(70-99)
01/06/24 15:49
01/06/24 15:49
Vital Signs
Initial and Last Documented VS:
Initial Vital Signs
Temp Pulse Resp BP Pulse Ox
98.1 F 75 18 114/73 94
01/06/24 15:34 01/06/24 15:34 01/06/24 15:34 01/06/24 15:34 01/06/24 15:34
Last Documented Vital Signs
Temp Pulse Resp BP Pulse Ox
98.1 F 67 19 141/79 92
01/06/24 15:34 01/06/24 22:00 01/06/24 22:00 01/06/24 22:00 01/06/24 22:00
MDM/Problems Addressed
Differential Diagnosis Includes:
Patient to ED with complaint of severe abdominal pain which started 3 days ago. SHe had a similar event this past spring. Admitted for hepatic cyst rupture, hemoperitoneum, anemia. CT tonight reveals new large hepatic cyst. No evidence of
perforation. Hgb stable. Pain controlled with Iv pain medication. Will admit to hospital service for abdominal pain, hepatic cyst.
*Radiology
Radiology exam reviewed: radiology read reviewed
*Pulse Oximetry
Patient hypoxic: no
*Critical Care Note
Total Time (30-74mins, 75-104mins- exclusive of procedures): Not Applicable
ED Attending Note
-
Portions of this chart may have been created with voice recognition software.� Occasional wrong word or��sound alike� substitutions may have occurred due to the inherent limitations of voice recognition software.
Discharge Plan
Departure
Patient Disposition: Admit
Date of Disposition: 01/06/24
Time of Disposition: 20:04
Presentation/result/management discussed w/ accepting MD/DO: Hospitalist
Condition: Fair
Covid-19: Not Applicable
Discharge Problem:
Hepatic cyst, Abdominal pain
Interventions
Interventions:
*Risk Screen - Suicide Last Done: 01/06/24 15:34
*General Assessment Last Done: 01/06/24 15:34
*Neglect/Abuse Screening Last Done: 01/06/24 15:34
OJ-Odpjuq-Gnwdrgopeh Assessment Last Done: 01/06/24 15:47
[2024-01-06] MEDS: NSS 1000 IV (16:57)
--- NOTE | 2024-01-06 20:57 | HPS.HSE ---
Family Physician
-
Family Physician: Fanta Muller
Chief Complaint
-
Abdominal pain
History of Present Illness
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
worsening of abdominal pain over the last day.
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
worsening abdominal pain. Patient reports that pain has been present for approximately 3 weeks. She reports pain is epigastric but also bilateral lower quadrant. Is nonradiating. She could not give a qualitative description otherwise. She
denies any sensation of or heartburn. She does report increased pain and popping with food intake. She reports vomiting of food but otherwise nonbilious and nonbloody. She denies black stools. She reports intermittent constipation and diarrhea
which is unchanged. She denies worsening abdominal distention. She reports some mild worsening of lower extremity swelling for which she was told to apply compression socks. She denies having any fevers or chills. Denies dysuria, frequency or
urgency.
In the emergency department she was afebrile, hemodynamically stable and satting in the mid 90s on 2 L O2. Hemoglobin was 10.8 which is unchanged from prior. She had a normal white count and platelet count. LFTs were within normal limits. Lipase
normal. Chemistries were otherwise notable for a potassium of 3.1. CT of the abdomen and pelvis showed a large 28 cm right hepatic lobe cystic mass with septations in the upper pole and also containing some debris. No bowel obstruction or hernia
incarceration. Additional findings are chronic and nonacute.
Medical History
Past Medical History
Past Medical History: Reports CHF (Diastolic dysfunction), COPD (On 2 L home O2), GERD and HTN
Additional Past Medical History:
Large ventral hernia
Hepatic cyst complicated by rupture/bleeding
Past Surgical History: Reports Other
Social History
Tobacco: Former Smoker
Alcohol: None
Drug: None
Living: Assisted Living
Employment: Retired
Family History
Family History: Not pertinent
Allergies / Home Medications
Allergies reflects when Allergies were last updated in Rounds.
Home Medications with original date entered in Rounds
Allergy/Medication List:
Allergies
Allergy/AdvReac Type Severity Reaction Status Date / Time
No Known Allergies Allergy Unverified 04/23/23 15:57
Home Medications
amlodipine 2.5 mg tablet (Norvasc) 7.5 mg PO DAILY Blood Pressure 04/23/23
apixaban 5 mg tablet (Eliquis) 5 mg PO BID Blood Clot Prevention/Tx 04/23/23
empagliflozin 10 mg tablet (Jardiance) 10 mg PO DAILY Heart Failure 04/23/23
paroxetine HCl 25 mg tablet,extended release 24 hr (Paxil CR) 50 mg PO DAILY Mental Health/Anxiety 04/23/23
rosuvastatin 10 mg tablet (Crestor) 10 mg PO QPM High Cholesterol 04/23/23
furosemide 40 mg tablet 40 mg PO DAILY 04/28/23
cholecalciferol (vitamin D3) 25 mcg (1,000 unit) tablet 25 mcg PO DAILY 01/06/24
famotidine 40 mg tablet 40 mg PO HS 01/06/24
furosemide 40 mg tablet 20 mg PO QPM 01/06/24
pantoprazole 40 mg tablet,delayed release 40 mg PO DAILYPRN PRN reflux 01/06/24
polyethylene glycol 3350 17 gram oral powder packet (HealthyLax) 17 g PO DAILYPRN PRN constipation 01/06/24
valsartan 320 mg tablet 320 mg PO DAILY 01/06/24
zinc sulfate 50 mg zinc (220 mg) tablet 50 mg PO DAILY 01/06/24
Review of Systems
-
History Source: Patient
Constitutional: Reports No Symptoms
EENT: Reports No Symptoms
Respiratory: Reports No Symptoms
Cardiac: Reports No Symptoms
Abdomen/GI: Reports Abdominal Pain, Nausea and Vomiting
: Reports No Symptoms
Musculoskeletal: Reports No Symptoms
Skin: Reports No Symptoms
Neurological: Reports No Symptoms
Endocrine: Reports No Symptoms
Hematologic/Lymphatic: Reports No Symptoms
Psych: Reports No Symptoms
Physical Exam
Vital Signs
Vital Signs
Temp Pulse Resp BP Pulse Ox
98.1 F 79 11 114/73 94
01/06/24 15:34 01/06/24 15:35 01/06/24 15:35 01/06/24 15:34 01/06/24 15:35
Physical Exam
General: Comfortable, Conversant and Appears Chronically Ill
HEENT: NormoCephalic, Anicteric, Moist mucous membranes, Atraumatic, PERRLA and Oxygen
Respiratory: Clear
Cardiac: S1/S2 and Regular Rhythm
Breast: Deferred by me
GI: Soft, Normal Bowel Sounds, Organomegaly and Other (large midline anterior abdominal wall hernia)
Rectal: Deferred by Provider
Genito-urinary: Deferred by me
Musculoskeletal: No Clubbing, No Cyanosis, Edema, Left Lower Extremity (trace) and Edema, Right Lower Extremity (trace)
Skin: Warm
Neuro: AO x 3
Hematologic/Lymphatic: No Lymphadenopathy
Psych: Calm
Laboratory Results
-
01/06/24 15:49
01/06/24 15:49
Laboratory Results
Total Bilirubin 0.9 mg/dl (0.2-1.3) 01/06/24 15:49
AST 29 U/L (14-36) 01/06/24 15:49
ALT 26 U/L (0-35) 01/06/24 15:49
Alkaline Phosphatase 110 U/L (38-126) 01/06/24 15:49
Lipase 290 U/L (23-300) 01/06/24 15:49
Data Reviewed
-
CT Scan: Report Reviewed by me
Lab Data: Labs Reviewed by me
Old Records: Reviewed
Impression/Plan
-
IMPRESSION:
83 y.o F with multiple commorbidities comes in with subacute pain over 3 weeks that appear to be acutely worsened today. The pain is mostly epigastric with associated nausea and vomiting but also bilateral lower quadrant. There is concern for
ruptured hepatic cyst but Hgb is stable and hemodynamically stable.
PLAN:
1. Abdominal pain - abdominal pain, burping, nausea, occasional vomiting. No blood. No melena. Non-toxic appearing. Possibly ruptured cyst versus dyspepsia/pud. Labs show normal lfts and no signs of biliary obstruction, bowel obstruction or
incarceration. The liver cyst appears similar to prior. Not a surgical candidate for hernia repair.
- admit to med/surg
- npo except sips and ice chips for now
- ppi iv daily, continue famotidine
- pain control and antiemetics
- trend h/h q 12
- GI consultation
2. CHF - stable. Patient appears slightly dehydrated.
- while npo, reduced furosemdide to 40 daily
- holding jardiance
- keep K, Mag > 4,2
3. DVT/PE - history of recurrent VTE.
- continue eliquis for now, no evidence of acute bleeding
4. COPD - stable
- continue 2/3 L home O2
- prn nebs
5. HTN - HD stable
- continue norvasc and ARB
DVT PPX on apixaban
Code Status - Full Code
[2024-01-06] MEDS: PEPCID 40 MG PO (22:44)
[2024-01-06] MEDS: KCL 160 MEQ IV (22:48)
--- NOTE | 2024-01-06 23:37 | PTCARENOTE ---
Patient unable to take Klor-con d/t c/o 'upset stomach'; K rider infusing; Cong BROUSSARD made aware.
[2024-01-07 05:58] LABS: Hematocrit 30.6 % (37.0-47.0); Hemoglobin 9.3 g/dL (12.0-16.0); Mean Corp Hgb Conc. 30.4 g/dL (33.0-37.0); Mean Corpuscular Hgb 29.2 pg (27.0-31.0); Mean Corpuscular Volume 96.2 fL (81.0-99.0); Mean Platelet Volume 9.9 fL (7.4-10.4); Platelet Count 161 10^3/uL (130-400); Red Blood Cell Count 3.18 10^6/uL (4.20-5.40); White Blood Cell Count 6.2 10^3/uL (4.8-10.8)
[2024-01-07 06:00] VITALS: BMI 34.2
[2024-01-07 06:27] LABS: Blood Urea Nitrogen 19 mg/dl (7-17); Calcium 8.1 mg/dl (8.4-10.2); Carbon Dioxide 37 mmol/L (22-30); Chloride 99 mmol/L (98-107); Estimated Creatinine Clearance 42 ml/min; Glucose 83 mg/dl (70-99); Lipase 77 U/L (23-300); Magnesium 2.1 mg/dl (1.6-2.3); Potassium 3.5 mmol/L (3.5-5.1); Sodium 143 mmol/L (135-145); eGFR > 60.00
[2024-01-07 07:00] VITALS: BP 136/70
[2024-01-07] MEDS: DESENEX/MITRAZOL/ZEASORB 1 APPLIC TOPICAL ×2 (08:45→19:47)
[2024-01-07] MEDS: VITAMIN D3 (cholecalciferol) 25 MCG PO (08:45)
[2024-01-07] MEDS: PAXIL 40 MG PO (08:45)
[2024-01-07] MEDS: DIOVAN 320 MG PO (08:45)
[2024-01-07] MEDS: ELIQUIS 5 MG PO (08:45)
[2024-01-07] MEDS: PROTONIX IV 40 MG IV ×2 (08:46→19:48)
[2024-01-07] MEDS: NORVASC 7.5 MG PO (08:46)
[2024-01-07] MEDS: LASIX 40 MG PO (08:46)
[2024-01-07] MEDS: DILAUDID 0.5 MG IV ×3 (08:54→22:16)
--- NOTE | 2024-01-07 09:16 | CON.GI ---
Addendum entered and electronically signed by Yajaira Hicks Do, MD 01/07/24 11:39:
I saw and examined the patient.
The THROUGH FREIGHT ENGINEER's note was reviewed and I agree with the note.
Comment: Kendra is an 83yo W with h/o PE on eliquis who was admitted for abd pain. She has remote h/o liver cyst with rupture. Exam VSS lips blue, distended abd with palpable hernia/mass. Imaging reviewed pictures with large 28cm liver cyst
causing mass compression to bowels/stomach and other organs.
Impression
- Abd pain from very large liver cyst measuring 28cm
- Chronic anticoagulation
- PE
- COPD
- CHF
- HTN
Recommendations
- Consult surgery for possible surgery given risk of rupture/hemoperitoneum
- Other option would be IR guided drain with possible ETOH ablation if not surgical candidate
- Continue to hold AC
- Diet per surgery
- Pain meds per primary team
- C/w PPI and miralax
At this juncture no other GI recs. Will sign off please call for questions.
Original Note:
Consultation
-
Date/Time Consultation Requested: 01/06/248
Date/Time Consultation Performed: 01/07/24 0900
Requesting Provider: Dr. Clancy
Performing Provider: Dr. Taylor/BOBO Amado
Reason for Consultation: abd pain
Medical History
Chief Complaint / HPI
Chief Complaint: aqbd pain
History of Present Illness:
83-year-old female with past medical history of PE on Eliquis, CHF, hypertension, COPD, massive liver cyst with prior rupture in April 2023, renal cyst, ovarian cyst, colon polyps, incisional hernia repair without mesh with recurrence, (last
colonoscopy over 25 years ago with inability to have repeat colonoscopies were virtual colonoscopies with significant hernia), hyperlipidemia, diabetes who presents to the emergency room with nausea, epigastric discomfort and pain surrounding
umbilical hernia. Asked to evaluate for the same. Patient states that she has had some mild nausea for the past couple days. He also had some poor appetite however was able to eat. She had no pain with eating. The day before last she ate yogurt
with no discomfort. She does have a history of alternating bowel movements ranging from pebble-like stools to 'normal soft bowel movements'. Her last bowel movement was yesterday which she states was hard. She is passing flatus. She states that
her pain is constant, dull in nature, in her upper abdomen mostly epigastric to the right side. She does have some right shoulder discomfort. She does have associated belching and burping. This does not alleviate her discomfort. She also has
some discomfort surrounding the hernia however no palpable pain on the hernia. She denies any fevers, chills, vomiting, melena, hematochezia, dysphagia or odynophagia. She can only eat small quantities. She does live alone and [place]. She
has 3 children 1 who [address] [place] and the other [address] [facility]. She does have a history of colon polyps with last colonoscopy being 25 years ago. She states that they tried to perform a repeat colonoscopy however were unable
secondary to her hernia. She states that they were trying to do virtual colonoscopies but were unable secondary to the hernia as well. Her mother has a history of stomach cancer. She herself has had endoscopies in the past. At home she is on
pantoprazole 40 mg daily as well as famotidine 40 mg at bedtime. She denies any heartburn. She denies any NSAIDs. She only uses Tylenol for discomfort. She continues on Eliquis at this time.
Past Medical History
Past Medical History: CHF, COPD, GERD, HTN, Hypercholesterolemia, NIDDM and Other (PE, polycystic liver kidney, ovarian cyst, incisional hernia, hepatic cyst rupture (04/2023))
Past Surgical History: Other (Ventral hernia status postrepair with recurrence)
Social History
Tobacco: Former Smoker
Alcohol: Daily (1 glass of wine or 1 cocktail daily)
Drug: None
Personal:
Living: Assisted Living
Employment: Retired
Family History
Family History: Other (Mother history gastric cancer. No other gastrointestinal malignancies)
Allergies / Home Medications
Allergy/AdvReac Type Severity Reaction Status Date / Time
No Known Allergies Allergy Unverified 04/23/23 15:57
�Medication �Instructions �Recorded
amlodipine 2.5 mg tablet (Norvasc) 7.5 mg PO DAILY Blood Pressure 04/23/23
apixaban 5 mg tablet (Eliquis) 5 mg PO BID Blood Clot 04/23/23
Prevention/Tx
empagliflozin 10 mg tablet 10 mg PO DAILY Heart Failure 04/23/23
(Jardiance)
paroxetine HCl 25 mg 50 mg PO DAILY Mental 04/23/23
tablet,extended release 24 hr Health/Anxiety
(Paxil CR)
rosuvastatin 10 mg tablet (Crestor) 10 mg PO QPM High Cholesterol 04/23/23
furosemide 40 mg tablet 40 mg PO DAILY 04/28/23
cholecalciferol (vitamin D3) 25 25 mcg PO DAILY 01/06/24
mcg (1,000 unit) tablet
famotidine 40 mg tablet 40 mg PO HS 01/06/24
furosemide 40 mg tablet 20 mg PO QPM 01/06/24
pantoprazole 40 mg tablet,delayed 40 mg PO DAILYPRN PRN reflux 01/06/24
release
polyethylene glycol 3350 17 gram 17 g PO DAILYPRN PRN constipation 01/06/24
oral powder packet (HealthyLax)
valsartan 320 mg tablet 320 mg PO DAILY 01/06/24
zinc sulfate 50 mg zinc (220 mg) 50 mg PO DAILY 01/06/24
tablet
Review of Systems
-
All other systems: A 12 pt ROS was Negative except as stated above in HPI
Vital Signs
Temp Pulse Resp BP Pulse Ox
97.7 F 62 16 136/70 95
01/07/24 07:00 01/07/24 07:00 01/07/24 07:00 01/07/24 07:00 01/07/24 07:00
Physical Exam
Exam
General: No Apparent Distress
HEENT: Anicteric
Respiratory: Clear (Anterior)
Cardiac: Murmur
GI: Other (Hepatomegaly, tenderness to mid epigastric area/right upper quadrant, positive bowel sounds, large abdominal wall hernia, no tenderness to hernia wall)
Skin: Warm and Dry
Neuro: AO x 3
Psych: Calm
Results
WBC 6.2 10^3/uL (4.8-10.8) 01/07/24 05:42
Hgb 9.3 g/dL (12.0-16.0) L 01/07/24 05:42
Hct 30.6 % (37.0-47.0) L 01/07/24 05:42
MCV 96.2 fL (81.0-99.0) 01/07/24 05:42
Plt Count 161 10^3/uL (130-400) 01/07/24 05:42
Absolute Neuts (auto) 6.8 10^3/uL (1.4-6.5) H 01/06/24 15:49
Sodium 143 mmol/L (135-145) 01/07/24 05:42
Potassium 3.5 mmol/L (3.5-5.1) 01/07/24 05:42
Chloride 99 mmol/L (98-107) 01/07/24 05:42
Carbon Dioxide 37 mmol/L (22-30) H 01/07/24 05:42
BUN 19 mg/dl (7-17) H 01/07/24 05:42
Creatinine 0.9 mg/dL (0.6-1.0) 01/07/24 05:42
Calcium 8.1 mg/dl (8.4-10.2) L 01/07/24 05:42
Total Bilirubin 0.9 mg/dl (0.2-1.3) 01/06/24 15:49
AST 29 U/L (14-36) 01/06/24 15:49
ALT 26 U/L (0-35) 01/06/24 15:49
Alkaline Phosphatase 110 U/L (38-126) 01/06/24 15:49
Lipase 77 U/L (23-300) 01/07/24 05:42
Diagnostic Image Results:
CT abdomen and pelvis with IV and oral contrast:
IMPRESSION:
28.0 cm cystic mass encompassing the right hemiabdomen, which appears to arise from the right lobe of the liver. Thin internal septation at the superior aspect of the mass, and peripheral nodularity versus debris along the posterior inferior aspect
of the mass. Mass effect with peripheral displacement of adjacent abdominal structures.
Bowel containing midline anterior abdominal wall and right inguinal hernias. No evidence for a bowel obstruction.
Prior GI Procedures:
EGD: Patient states over 25 years ago. States that she had erosions.
Colonoscopy: Patient states over 25 years ago. History of colon polyps. No further colonoscopies or virtual colonoscopies were able to be performed secondary to hernia.
Assessment / Plan
-
83-year-old female with past medical history of PE on Eliquis, CHF, hypertension, COPD, massive liver cyst with prior rupture in April 2023, renal cyst, ovarian cyst, colon polyps, incisional hernia repair without mesh with recurrence, (last
colonoscopy over 25 years ago with inability to have repeat colonoscopies were virtual colonoscopies with significant hernia), hyperlipidemia, diabetes who presents to the emergency room with nausea, epigastric discomfort and pain surrounding
umbilical hernia. Asked to evaluate for the same. CT abdomen and pelvis with IV and oral contrast shows 28.0 cm cystic mass encompassing the right hemiabdomen, which appears to arise from the right lobe of the liver. Thin internal septation at the
superior aspect of the mass, and peripheral nodularity versus debris along the posterior inferior aspect of the mass. Mass effect with peripheral displacement of adjacent abdominal structures. Bowel containing midline anterior abdominal wall and
right inguinal hernias. No evidence for a bowel obstruction. Patient was able to eat without any increase in pain however had decreased appetite prior to this. Was on pantoprazole 40 mg daily and famotidine 40 mg at bedtime. No bowel movements
here. Solid bowel movement yesterday. Continues on Eliquis for history of PE. Vital signs stable .WBC 6.2, hemoglobin 9.3, hematocrit 30.6, platelets 161. Sodium 143, potassium 3.5, chloride 99, CO2 37, BUN 19, creatinine 0.9, total bilirubin
0.9, AST 29, ALT 26, alk phos 110, lipase 77 (down from 290).
Impression:
Abdominal pain-> likely component of hepatic capsular stretching, possible gastritis/duodenitis-> (EtOH use daily)
Mass of hepatic cyst 28 cm encompassing right hemiabdomen
Fat-containing midline anterior abdominal wall and right inguinal hernias without bowel obstruction
On anticoagulation Eliquis prior history of PE
CHF
COPD on O2
Plan:
Continue PPI, increase to twice daily and famotidine
No signs of GI bleeding however continue to monitor CBC
Surgical consult
Avoid alcohol
Further recommendations to be forthcoming
-
-
Thank you for consultation and allowing me to participate in the patient's care. Please call the software validation engineer GI physician during the after hours with any questions or concerns.
--- NOTE | 2024-01-07 09:56 | CON.GS ---
Addendum entered and electronically signed by Michael Triplett MD 01/07/24 16:56:
Patient seen and examined. Agree with assessment plan as documented below.
Patient is a 83 yo F with a PMH of obesity, HTN, HFpEF, COPD (on home 2 L O2), DVT/PE (on Eliquis), s/p x 3, s/p primary ventral incisional hernia repair, and known polycystic liver and kidney disease. She reports that over the past
several months she has had issues with dull abdominal discomfort throughout her entire abdomen but primarily in the epigastrium. She also notes some nausea as well as difficulty with PO intake. Reports frequent bloating and belching. Associated
RIGHT shoulder discomfort. She denies any centralized back pain. She continues to pass flatus and move her bowels. She denies any hematemesis or hematochezia. No fevers or chills. She is currently on a PPI. She does not use NSAIDs regularly.
She does drink daily. No increased pain or discomfort overlying her recurrent ventral incisional hernia. She does report some achy discomfort in her RIGHT groin.
Of note, she was previously admitted back in 04/2023 with a ruptured hepatic cyst. Medical management at that time. She did undergo a paracentesis which evacuated 900 cc bloody ascitic fluid.
Gen: NAD
Resp: supplemental O2, no increased WOB
Abd: soft, mild discomfort in epigastrium and RUQ, distended, large ventral incisional hernia soft, non-tender, unable to reduce, palpable right inguinal hernia, reducible, midline incision well healed, non-peritoneal
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
Natural history and pathophysiology of hepatic cyst was reviewed. The significant size and mechanical alteration of anatomy and pressure has led to a likely GOO as well as contributing to her recurrent ventral incisional hernia and RIGHT inguinal
hernias. Labs and CT scan imaging were reviewed. CT demonstrates a well-formed recurrent hepatic cyst with no evidence of rupture or signs of internal bleeding. Options for management including IR percutaneous drainage with possible sclerotherapy
versus surgical fenestration were considered and discussed. Pros and cons of both approaches was discussed. No indication or need for urgent operative intervention at this time. She is also a poor procedural candidate right now given her recent
Eliquis use. Ms. Frye is at increased risk for operative complications given her medical comorbidities. That being said, IR management with sclerotherapy is likely to be insufficient given the size of the cyst and will result in recurrence
with a more scarred down operative field. The best procedural management of her current issues is an open fenestration of a hepatic cyst with recurrent ventral incisional hernia repair with mesh and RIGHT inguinal hernia repair with mesh. The
procedure itself, as well as the risks, benefits, and alternatives was discussed. Specifically, we discussed the risks of bleeding, infection, injury to surrounding structures (bowel), wound complications, recurrence of both the hernia and hepatic
cyst, and general anesthetic complications including DVT, WA, and pulmonary failure. Typical postprocedure recovery including the likely need for hospitalization for at least a week was discussed. All questions answered.
Plan for IR aspiration on Wednesday (01/09) following washout of her Eliquis. This will help with symptomatic management, as well as allow for cardiac/pulmonary evaluation and risk assessment. Would tentatively plan for outpatient follow-up and
further discussions on management for potential surgical scheduling.
-- IR aspiration of hepatic cyst on Wednesday
-- LRD
-- Hold Eliquis
-- Tentative plan for outpatient surgical management
Original Note:
Consultation
-
Requesting Provider: /Annika
Reason for Consultation: Hepatic cyst
Medical History
-
Chief Complaint: abdominal pain/belching
History of Present Illness:
Ms Frye is an 83 yo female with a history of DVT/PE on Eliquis (LD this am), HFpEF, HTN, c-sections and incisional hernia repair without mesh with known hepatic cyst and prior rupture in April who presents with increasing abdominal discomfort
and burping over the past few months. She notes some nausea as well and has not been eating well due to her symptoms. She notes constipation. She reports dull abdominal pain throughout the abdomen but mostly in the epigastric area and up into her
right shoulder. She denies hematemesis or hematochezia. She denies fevers or chills. She has a large incisional hernia present which is nontender and soft. She has a small right inguinal hernia as well which is also nontender and soft. She is
grossly nontender on exam. She is frequently belching and intermittently nauseated.
Past Medical History
Past Medical History: CHF, COPD (chronic O2), HTN and Other (DVT/PE on Eliquis (last clot was 15 years ago), polycystic liver and kidney dz)
Past Surgical History: (x3) and Hernia Repair (incisional without mesh)
Social History
Tobacco: Former Smoker
Alcohol: Daily
Living: Assisted Living (Tiera's choice)
Family History
Family History: Cancer (mother: stomach CA)
Allergies / Home Medications
Allergy/AdvReac Type Severity Reaction Status Date / Time
No Known Allergies Allergy Unverified 04/23/23 15:57
�Medication �Instructions �Recorded �Confirmed �Type
amlodipine 2.5 mg tablet (Norvasc) 7.5 mg PO DAILY Blood Pressure 04/23/23 01/06/24 History
apixaban 5 mg tablet (Eliquis) 5 mg PO BID Blood Clot 04/23/23 01/06/24 History
Prevention/Tx
empagliflozin 10 mg tablet 10 mg PO DAILY Heart Failure 04/23/23 01/06/24 History
(Jardiance)
paroxetine HCl 25 mg 50 mg PO DAILY Mental 04/23/23 01/06/24 History
tablet,extended release 24 hr Health/Anxiety
(Paxil CR)
rosuvastatin 10 mg tablet (Crestor) 10 mg PO QPM High Cholesterol 04/23/23 01/06/24 History
furosemide 40 mg tablet 40 mg PO DAILY 04/28/23 01/06/24 History
cholecalciferol (vitamin D3) 25 25 mcg PO DAILY 01/06/24 01/06/24 History
mcg (1,000 unit) tablet
famotidine 40 mg tablet 40 mg PO HS 01/06/24 01/06/24 History
furosemide 40 mg tablet 20 mg PO QPM 01/06/24 01/06/24 History
pantoprazole 40 mg tablet,delayed 40 mg PO DAILYPRN PRN reflux 01/06/24 01/06/24 History
release
polyethylene glycol 3350 17 gram 17 g PO DAILYPRN PRN constipation 01/06/24 01/06/24 History
oral powder packet (HealthyLax)
valsartan 320 mg tablet 320 mg PO DAILY 01/06/24 01/06/24 History
zinc sulfate 50 mg zinc (220 mg) 50 mg PO DAILY 01/06/24 01/06/24 History
tablet
Review of Systems
-
History Source: Patient
All other systems: Negative unless noted
A 10 point review of systems was completed, and was negative except as per HPI.
Physical Exam
Vital Signs
Temp Pulse Resp BP Pulse Ox
97.7 F 62 16 136/70 95
01/07/24 07:00 01/07/24 07:00 01/07/24 07:00 01/07/24 07:00 01/07/24 07:00
01/06/24 01/07/24 01/08/24
06:59 06:59 06:59
Actual Weight 76.839 kg
Body Mass Index (BMI) 34.2
Lab Results
01/07/24 05:42
01/07/24 05:42
WBC 6.2 10^3/uL (4.8-10.8) 01/07/24 05:42
Hgb 9.3 g/dL (12.0-16.0) L 01/07/24 05:42
Hct 30.6 % (37.0-47.0) L 01/07/24 05:42
Plt Count 161 10^3/uL (130-400) 01/07/24 05:42
Abs Immat Gran (auto) 0.1 10^3/uL (0-0.05) H 01/06/24 15:49
Neutrophils % 83.3 % (42.2-75.2) H 01/06/24 15:49
Physical Exam
General: Well Developed, Well Nourished and Other (occasional burping)
HEENT: Moist Mucous Membranes
Respiratory: Non Labored Respirations
GI: Soft, Tender (tender to upper right and epigastric area) and Other (Large ventral hernia: soft/nontender)
Genito-urinary: Inguinal Hernia (right, soft/nontender)
Skin: Warm and Dry
Neuro: Awake, Alert and AO x 3
Psych: Calm
Data Reviewed
-
CT Scan: Image Personally Visualized and interpreted, Report Reviewed by me, Discussed with Physician and Discussed with Patient
Labs: Labs Reviewed by me, Discussed with Physician and Discussed with Patient
Old Records: Reviewed
Assessment / Plan
-
83 yo female with h/o DVT/PE on Eliquis (LD this am), HFpEF and COPD on chronic oxygen who presents with worsening abdominal discomfort and epigastric pain radiating into the right shoulder with belching, nausea and poor PO tolerance. She has known
large hepatic cyst with prior rupture which has reformed and is quite large on CT imaging with mass effect and displacement of adjacent structures. There is a ventral hernia and a right inguinal hernia containing bowel without evidence of
obstruction. She is afebrile with stable vital signs and normal WBC count.
Gastroenterology following with us for possible gastritis/duodenitis as etiology of symptoms with increase in PPI for symptomatic management and ETOH cessation advised. Symptomatology is likely due to mass effect and displacement of adjacent
structures from hepatic cyst. IR drainage of cyst may provide temporary relief of discomfort/pain as well as define if the etiology of her pain is from the large hepatic cyst vs gastric/duodenal in nature at which time would recommend continued GI
workup/EGD. However, even with IR drainage, the cyst will eventually reform. Definitive management would include operative intervention with hepatic cyst fenestration and repair of hernias, would likely plan as an outpatient early next month.
Ideally, she would have clearance/optimization from cardiac and pulmonary standpoints prior to surgical intervention (?inpatient during her current stay). She does carry elevated risk for anesthesia given her co-morbid conditions which was discussed
with her.
--Hold Eliquis
--Symptomatic management as per GI
--Tentative IR aspiration/drainage of hepatic cyst on Wednesday for symptomatic relief/bridge to surgical intervention pending patient course
--Operative management as above
[2024-01-07] MEDS: DILAUDID 1 MG IV (11:14)
[2024-01-07 11:51] VITALS: BP 122/72
--- NOTE | 2024-01-07 12:51 | W.PN.HOSP.TC ---
Today's Communication/Plan
-
Assessment / Plan
Assessment / Plan
Imaging
IMPRESSION:
28.0 cm cystic mass encompassing the right hemiabdomen, which appears to arise from the right lobe of the liver. Thin internal septation at the superior aspect of the mass, and peripheral nodularity versus debris along the posterior inferior aspect
of the mass. Mass effect with peripheral displacement of adjacent abdominal structures.
Bowel containing midline anterior abdominal wall and right inguinal hernias. No evidence for a bowel obstruction.
Physical Exam
NAD, resting comfortably in bed
Scleral anicteric
Moist mucous membranes
No JVD
CTA bilateral
Normal S1-S2 no murmurs
Soft nontender nondistended bowel sounds active
No peripheral pitting edema
Moves extremities spontaneously
AAOx3
Assessment and Plan
Abdominal pain with a differential diagnosis that is likely secondary to hepatic cyst encroaching on adjacent organs and some right-sided diaphragmatic irritation causing referred pain to the right shoulder versus gastritis/PUD however lower
clinical suspicion of this versus gallbladder colic.
-Evaluated by GI and surgery
-Plan for IR drainage/aspiration on Wednesday
-Hold Eliquis
-May need to go to the OR in the near future for definitive management of this hepatic cyst fenestration repair of hernias
Ventral hernia
-Quite impressive
-Without evidence of strangulation/incarceration
-General Surgery following planning to take to the OR near future for
VTE
-Eliquis held as plans for IR aspiration of hepatic cyst on Wednesday
-As she has recurrent VTE we will start heparin drip
COPD
-On 2 to 3 L home O2
-As needed nebs
Hypertension
-Continue antihypertensives
Chronic HFpEF, euvolemic, EF 65 to 70%, NYHA class II-IV
-Continue diuretics
Anticipated Discharge: > 48 hours
Subjective/Interval History
-
Date of Service: January 07, 2024
Seen and examined. No new complaints. No acute overnight events.
Continues to experience right upper quadrant pain/epigastric discomfort that radiates to the right shoulder
Objective Data
-
Labs:
Laboratory Results
01/07/24
05:42
WBC 6.2
Hgb 9.3 L
Hct 30.6 L
Plt Count 161
Sodium 143
Potassium 3.5
Chloride 99
Carbon Dioxide 37 H
BUN 19 H
Creatinine 0.9
Glucose 83
Calcium 8.1 L
Vital Signs:
Vital Signs
Temp Pulse Resp BP Pulse Ox
97.7 F 77 16 122/72 96
01/07/24 07:00 01/07/24 11:51 01/07/24 11:51 01/07/24 11:51 01/07/24 12:23
I&O
01/06/24 01/07/24 01/08/24
06:59 06:59 06:59
Intake Total 310 / 310
Balance 310 / 310
--- NOTE | 2024-01-07 13:01 | CM ---
Reviewed the chart notes and spoke with the patient at the bedside. The patient is admitted under observational status. ALEXANDER letter provided and explained. The patient had no questions with regards to the letter.
The patient resides alone in an independent apartment at [facility]. The patient has continues O2 through [employer]. The patient has a rolling walker, cane, and wheelchair in home if needed. The patient has had [facility] and
been in a SNF in [place]. The patient confirmed her pharmacy of choice is [facility] at [facility]. CM continues to be available to patient/family and is monitoring medical plan for needs at discharge.
Plan: Discharge plans will depend on the patient's progress.
[2024-01-07 15:53] VITALS: BP 122/74
[2024-01-07] MEDS: CRESTOR 10 MG PO (16:37)
[2024-01-07] MEDS: MAALOX 30 ML PO (16:37)
[2024-01-07] MEDS: FLUSH (NSS) 2 FLUSH IV ×2 (19:54→22:18)
[2024-01-07] MEDS: NSS (PRESERVATIVE FREE) 10 ML IV (20:00)
[2024-01-07] MEDS: PEPCID 20 MG PO (22:12)
[2024-01-07] MEDS: DUONEB 3 ML INH (23:24)
[2024-01-07 23:37] VITALS: BP 126/66
[2024-01-08 06:00] VITALS: BMI 33.7
[2024-01-08 06:04] LABS: Hematocrit 27.6 % (37.0-47.0); Hemoglobin 8.5 g/dL (12.0-16.0); Mean Corp Hgb Conc. 30.8 g/dL (33.0-37.0); Mean Corpuscular Hgb 29.7 pg (27.0-31.0); Mean Corpuscular Volume 96.5 fL (81.0-99.0); Mean Platelet Volume 10.1 fL (7.4-10.4); Platelet Count 161 10^3/uL (130-400); Red Blood Cell Count 2.86 10^6/uL (4.20-5.40); White Blood Cell Count 8.2 10^3/uL (4.8-10.8)
[2024-01-08 06:22] LABS: Blood Urea Nitrogen 21 mg/dl (7-17); Calcium 8.3 mg/dl (8.4-10.2); Carbon Dioxide 37 mmol/L (22-30); Chloride 98 mmol/L (98-107); Estimated Creatinine Clearance 42 ml/min; Glucose 122 mg/dl (70-99); Potassium 3.8 mmol/L (3.5-5.1); Sodium 142 mmol/L (135-145); eGFR > 60.00
[2024-01-08 07:00] VITALS: BP 121/59
[2024-01-08] MEDS: NSS (PRESERVATIVE FREE) 10 ML IV ×2 (08:52→19:58)
[2024-01-08] MEDS: MIRALAX 17 GRAMS PO (08:53)
[2024-01-08] MEDS: DIOVAN 320 MG PO (08:53)
[2024-01-08] MEDS: PROTONIX IV 40 MG IV ×2 (08:53→19:59)
[2024-01-08] MEDS: LASIX 40 MG PO (08:53)
[2024-01-08] MEDS: PAXIL 40 MG PO (08:53)
[2024-01-08] MEDS: FLUSH (NSS) 2 FLUSH IV ×4 (08:55→20:59)
[2024-01-08] MEDS: VITAMIN D3 (cholecalciferol) 25 MCG PO (08:59)
[2024-01-08] MEDS: DILAUDID 0.5 MG IV ×3 (09:01→20:58)
[2024-01-08] MEDS: NORVASC 7.5 MG PO (09:26)
[2024-01-08] MEDS: DESENEX/MITRAZOL/ZEASORB 1 APPLIC TOPICAL ×2 (09:27→20:03)
--- NOTE | 2024-01-08 13:53 | W.PN.HOSP.TC ---
Today's Communication/Plan
-
Assessment / Plan
Assessment / Plan
Imaging
IMPRESSION:
28.0 cm cystic mass encompassing the right hemiabdomen, which appears to arise from the right lobe of the liver. Thin internal septation at the superior aspect of the mass, and peripheral nodularity versus debris along the posterior inferior aspect
of the mass. Mass effect with peripheral displacement of adjacent abdominal structures.
Bowel containing midline anterior abdominal wall and right inguinal hernias. No evidence for a bowel obstruction.
Physical Exam
NAD, resting comfortably in bed
Scleral anicteric
Moist mucous membranes
No JVD
CTA bilateral
Normal S1-S2 no murmurs
Soft nontender nondistended bowel sounds active
No peripheral pitting edema
Moves extremities spontaneously
AAOx3
Assessment and Plan
Abdominal pain with a differential diagnosis that is likely secondary to hepatic cyst encroaching on adjacent organs and some right-sided diaphragmatic irritation causing referred pain to the right shoulder versus gastritis/PUD however lower
clinical suspicion of this versus gallbladder colic.
-Evaluated by GI and surgery
-Plan for IR drainage/aspiration on Wednesday
-Hold Eliquis
-May need to go to the OR in the near future for definitive management of this hepatic cyst fenestration repair of hernias
Ventral hernia
-Quite impressive
-Without evidence of strangulation/incarceration
-General Surgery following planning to take to the OR near future for
VTE
-Eliquis held as plans for IR aspiration of hepatic cyst on Wednesday
-As she has recurrent VTE we will start heparin drip
COPD
-On 2 to 3 L home O2
-As needed nebs
Hypertension
-Continue antihypertensives
Chronic HFpEF, euvolemic, EF 65 to 70%, NYHA class II-IV
-Continue diuretics
Anticipated Discharge: > 48 hours
Subjective/Interval History
-
Date of Service: January 08, 2024
seen and examiend. no new comaplitns. no acute overnight events
Objective Data
-
Labs:
Laboratory Results
01/08/24
05:13
WBC 8.2
Hgb 8.5 L
Hct 27.6 L
Plt Count 161
Sodium 142
Potassium 3.8
Chloride 98
Carbon Dioxide 37 H
BUN 21 H
Creatinine 0.9
Glucose 122 H
Calcium 8.3 L
Vital Signs:
Vital Signs
Temp Pulse Resp BP Pulse Ox
97.0 F 62 16 121/59 92
01/08/24 07:00 01/08/24 07:00 01/08/24 07:00 01/08/24 07:00 01/08/24 07:00
I&O
01/07/24 01/08/24 01/09/24
06:59 06:59 06:59
Intake Total 310 / 310 720 / 720
Balance 310 / 310 720 / 720
[2024-01-08 15:00] VITALS: BP 141/66
--- NOTE | 2024-01-08 15:50 | CHAP ---
Kendra is accepting of her situation, hoping for a good outcome. She welcomed prayer. Emotional and spiritual support provided, along with assurance of our on-going availability.
--- NOTE | 2024-01-08 16:34 | W.PN.GS2 ---
Today's Communication / Plan
-
continue diet
hold eliquis
Assessment / Plan
-
Patient is an 83 yo F p/w likely partial GOO secondary to a recurrent symptomatic hepatic cyst
IR management with sclerotherapy is likely to be insufficient given the size of the cyst and will result in recurrence with a more scarred down operative field. The best procedural management of her current issues is an open fenestration of a
hepatic cyst with recurrent ventral incisional hernia repair with mesh and RIGHT inguinal hernia repair with mesh.
Plan for IR aspiration on Wednesday (01/09) following washout of her Eliquis. This will help with symptomatic management, as well as allow for cardiac/pulmonary evaluation and risk assessment. Would tentatively plan for outpatient follow-up and
further discussions on management for potential surgical scheduling.
Timing and plan again reviewed with patient today
-- IR aspiration of hepatic cyst on Wednesday
-- LRD as tolerated
-- Hold Eliquis
-- Tentative plan for outpatient surgical management
Subjective Data
-
Date of Service: January 08, 2024
Patient seen and examined at bedside. Denies n/v. Burping has stopped. Tolerating small amounts of food.
Objective Data
-
Intake and Output
01/07/24 01/08/24 01/09/24
06:59 06:59 06:59
Intake Total 310 / 310 720 / 720
Balance 310 / 310 720 / 720
Intake:
Oral fluids 50 / 50 720 / 720
IV fluids (Total) 100 / 100
IV piggybacks 160 / 160
Other:
Number of approximated MODERATE 1 3
amounts of urine
Vital Signs
Temp Pulse Resp BP Pulse Ox
97.0 F 62 16 121/59 92
01/08/24 07:00 01/08/24 07:00 01/08/24 07:00 01/08/24 07:00 01/08/24 07:00
Lab Results
01/08/24 05:13
01/08/24 05:13
Calcium 8.3 mg/dl (8.4-10.2) L 01/08/24 05:13
Magnesium 2.1 mg/dl (1.6-2.3) 01/07/24 05:42
Total Bilirubin 0.9 mg/dl (0.2-1.3) 01/06/24 15:49
AST 29 U/L (14-36) 01/06/24 15:49
ALT 26 U/L (0-35) 01/06/24 15:49
Alkaline Phosphatase 110 U/L (38-126) 01/06/24 15:49
Total Protein 6.5 g/dl (6.3-8.2) 01/06/24 15:49
Albumin 4.2 g/dl (3.5-5.0) 01/06/24 15:49
Physical Exam
-
Gen: NAD
Abd: obese, soft, NT, non-peritoneal, large ventral hernia/soft. right inguinal hernia/soft
[2024-01-08] MEDS: CRESTOR 10 MG PO (16:50)
[2024-01-08 19:29] VITALS: BP 119/81
[2024-01-08] MEDS: LIDOCAINE 4% PATCH 1 PATCH TOPICAL (20:54)
[2024-01-08] MEDS: PEPCID 20 MG PO (21:00)
--- NOTE | 2024-01-08 21:12 | PTCARENOTE ---
Patient c/o upper right back pain 10/25. She isn't due for Dilaudid for half an hour and is requesting a Lidocaine patch. Advised covering provider. Orders received.
[2024-01-08 23:10] VITALS: BP 115/65
[2024-01-09] MEDS: DILAUDID 0.5 MG IV ×4 (03:26→20:35)
[2024-01-09] MEDS: FLUSH (NSS) 2 FLUSH IV ×4 (03:27→16:05)
[2024-01-09 06:28] LABS: Hematocrit 26.7 % (37.0-47.0); Mean Corpuscular Hgb 29.3 pg (27.0-31.0); Mean Corpuscular Volume 97.8 fL (81.0-99.0); Mean Platelet Volume 10.2 fL (7.4-10.4); Platelet Count 161 10^3/uL (130-400); Red Blood Cell Count 2.73 10^6/uL (4.20-5.40); Red Cell Dist. Width 13.2 % (11.5-14.5); White Blood Cell Count 6.4 10^3/uL (4.8-10.8)
[2024-01-09 06:41] LABS: ALT (SGPT) 19 U/L (0-35); AST (SGOT) 24 U/L (14-36); Albumin 3.5 g/dl (3.5-5.0); Alkaline Phosphatase 76 U/L (38-126); Blood Urea Nitrogen 16 mg/dl (7-17); Calcium 8.6 mg/dl (8.4-10.2); Chloride 97 mmol/L (98-107); Direct Bilirubin 0.2 mg/dl (0.0-0.4); Estimated Creatinine Clearance 47 ml/min; Glucose 110 mg/dl (70-99); Potassium 3.9 mmol/L (3.5-5.1); Sodium 143 mmol/L (135-145); Total Bilirubin 0.6 mg/dl (0.2-1.3); Total Protein 5.8 g/dl (6.3-8.2); eGFR > 60.00
[2024-01-09 06:53] LABS: Carbon Dioxide 34 mmol/L (22-30)
[2024-01-09 07:35] VITALS: BP 109/60
[2024-01-09] MEDS: VITAMIN D3 (cholecalciferol) 25 MCG PO (08:39)
[2024-01-09] MEDS: PAXIL 40 MG PO (08:39)
[2024-01-09] MEDS: LASIX 40 MG PO (08:39)
[2024-01-09] MEDS: NSS (PRESERVATIVE FREE) 10 ML IV ×2 (08:40→20:14)
[2024-01-09] MEDS: PROTONIX IV 40 MG IV ×2 (08:40→20:24)
[2024-01-09] MEDS: MIRALAX 17 GRAMS PO (08:42)
[2024-01-09] MEDS: DESENEX/MITRAZOL/ZEASORB 1 APPLIC TOPICAL ×2 (09:17→20:23)
--- NOTE | 2024-01-09 11:08 | W.PN.HOSP.TC ---
Today's Communication/Plan
-
NPO aftermidnight for IR
IR plans to drain hepatic cyst
Surgery following
Assessment / Plan
Assessment / Plan
Imaging
IMPRESSION:
28.0 cm cystic mass encompassing the right hemiabdomen, which appears to arise from the right lobe of the liver. Thin internal septation at the superior aspect of the mass, and peripheral nodularity versus debris along the posterior inferior aspect
of the mass. Mass effect with peripheral displacement of adjacent abdominal structures.
Bowel containing midline anterior abdominal wall and right inguinal hernias. No evidence for a bowel obstruction.
Physical Exam
NAD, resting comfortably in bed
Scleral anicteric
Moist mucous membranes
No JVD
CTA bilateral
Normal S1-S2 no murmurs
Soft nontender nondistended bowel sounds active
No peripheral pitting edema
Moves extremities spontaneously
AAOx3
Assessment and Plan
Abdominal pain with a differential diagnosis that is likely secondary to hepatic cyst encroaching on adjacent organs and some right-sided diaphragmatic irritation causing referred pain to the right shoulder versus gastritis/PUD however lower
clinical suspicion of this versus gallbladder colic.
-Evaluated by GI and surgery
-Plan for IR drainage/aspiration on Wednesday
-Hold Eliquis
-May need to go to the OR in the near future for definitive management of this hepatic cyst fenestration repair of hernias
Ventral hernia
-Quite impressive
-Without evidence of strangulation/incarceration
-General Surgery following planning to take to the OR near future for
VTE
-Eliquis held as plans for IR aspiration of hepatic cyst on Wednesday
-Plan to resume elquis post IR, if planned for OR with surgery post IR drain then will need to intiate Heparin gtt
Normocytic anemia, acute on chronic, without evidence of active bleeding, hemodynamical stable
-Transfuse if hgb <7
-If plans for transfusion then would obtain iron panel and ferritin otherwise should be completed as outpatient
-Age appropriate cancer screening
COPD
-On 2 to 3 L home O2
-As needed nebs
Hypertension
-Continue antihypertensives
Chronic HFpEF, euvolemic, EF 65 to 70%, NYHA class II-IV
-Continue diuretics
Anticipated Discharge: 24 - 48 hours
Subjective/Interval History
-
Date of Service: January 09, 2024
seen and examinied
no new complaints.
no acute overnight events
Objective Data
-
Labs:
Laboratory Results
01/09/24
05:23
WBC 6.4
Hgb 8.0 L
Hct 26.7 L
Plt Count 161
Sodium 143
Potassium 3.9
Chloride 97 L
Carbon Dioxide 34 H
BUN 16
Creatinine 0.8
Glucose 110 H
Calcium 8.6
Total Bilirubin 0.6
AST 24
ALT 19
Alkaline Phosphatase 76
Vital Signs:
Vital Signs
Temp Pulse Resp BP Pulse Ox
98.4 F 78 18 109/60 93
01/09/24 07:35 01/09/24 07:35 01/09/24 07:35 01/09/24 07:35 01/09/24 07:35
I&O
01/08/24 01/09/24 01/10/24
06:59 06:59 06:59
Intake Total 720 / 720 1140 / 1140
Balance 720 / 720 1140 / 1140
[2024-01-09 11:48] VITALS: BMI 31.6
[2024-01-09 11:55] VITALS: BP 108/60
[2024-01-09] MEDS: NORVASC PO (12:23)
[2024-01-09] MEDS: DIOVAN PO (12:23)
[2024-01-09 15:40] VITALS: BP 124/71
[2024-01-09] MEDS: CRESTOR 10 MG PO (17:31)
[2024-01-09] MEDS: PEPCID 20 MG PO (21:57)
[2024-01-10] VITALS (8 sets, daily range): BP systolic 66–158; BP diastolic 63–85; BMI 31.4
[2024-01-10] MEDS: DILAUDID 0.5 MG IV ×3 (02:35→15:10)
[2024-01-10 07:51] LABS: Hematocrit 27.9 % (37.0-47.0); Hemoglobin 8.4 g/dL (12.0-16.0); Mean Corp Hgb Conc. 30.1 g/dL (33.0-37.0); Mean Corpuscular Hgb 29.6 pg (27.0-31.0); Mean Corpuscular Volume 98.2 fL (81.0-99.0); Mean Platelet Volume 10.4 fL (7.4-10.4); Platelet Count 174 10^3/uL (130-400); Red Blood Cell Count 2.84 10^6/uL (4.20-5.40); Red Cell Dist. Width 13.2 % (11.5-14.5); White Blood Cell Count 5.8 10^3/uL (4.8-10.8)
[2024-01-10 08:18] LABS: ALT (SGPT) 18 U/L (0-35); AST (SGOT) 25 U/L (14-36); Albumin 3.5 g/dl (3.5-5.0); Alkaline Phosphatase 78 U/L (38-126); Blood Urea Nitrogen 15 mg/dl (7-17); Calcium 8.4 mg/dl (8.4-10.2); Chloride 96 mmol/L (98-107); Direct Bilirubin 0.1 mg/dl (0.0-0.4); Estimated Creatinine Clearance 46 ml/min; Glucose 94 mg/dl (70-99); Sodium 140 mmol/L (135-145); Total Bilirubin 0.6 mg/dl (0.2-1.3); Total Protein 5.8 g/dl (6.3-8.2); eGFR > 60.00
[2024-01-10 08:39] LABS: Carbon Dioxide 33 mmol/L (22-30)
[2024-01-10] MEDS: LASIX 40 MG PO (08:57)
[2024-01-10] MEDS: DIOVAN 320 MG PO (08:57)
[2024-01-10] MEDS: MIRALAX PO ×2 (08:58→09:32)
[2024-01-10] MEDS: NORVASC 7.5 MG PO (08:58)
[2024-01-10] MEDS: PAXIL 40 MG PO (08:59)
[2024-01-10] MEDS: NSS (PRESERVATIVE FREE) 10 ML IV ×2 (08:59→20:31)
[2024-01-10] MEDS: PROTONIX IV 40 MG IV ×2 (09:00→20:29)
[2024-01-10] MEDS: VITAMIN D3 (cholecalciferol) 25 MCG PO (09:00)
[2024-01-10] MEDS: DESENEX/MITRAZOL/ZEASORB 1 APPLIC TOPICAL ×2 (09:09→20:31)
--- NOTE | 2024-01-10 10:32 | CM ---
Reviewed the chart notes. Per notes, IR plans to drain hepatic cyst today. CM continues to be available to patient/family and is monitoring medical plan for needs at discharge.
Plan: Discharge plans will depend on the patient's progress.
--- NOTE | 2024-01-10 11:09 | W.PN.HOSP.TC ---
Today's Communication/Plan
-
Await IR procedure
Holding Eliquis
Assessment / Plan
Assessment / Plan
Imaging
IMPRESSION:
28.0 cm cystic mass encompassing the right hemiabdomen, which appears to arise from the right lobe of the liver. Thin internal septation at the superior aspect of the mass, and peripheral nodularity versus debris along the posterior inferior aspect
of the mass. Mass effect with peripheral displacement of adjacent abdominal structures.
Bowel containing midline anterior abdominal wall and right inguinal hernias. No evidence for a bowel obstruction.
Physical Exam
General: Not in distress
HEENT: Moist Mucous Membranes, wearing nasal O2
Respiratory: Non Labored Respirations
GI: Soft, not tender. (Large ventral hernia: soft/nontender)
Genito-urinary: Inguinal Hernia (right, soft/nontender)
Skin: Warm and Dry
Neuro: Awake, Alert and AO x 3, she followed commands.
Psych: Calm
Assessment and Plan:
# Abdominal pain with a differential diagnosis that is likely secondary to recurrent symptomatic hepatic cyst
Not in pain this morning
-Evaluated by GI and surgery
-Plan for IR drainage/aspiration on Wednesday
-Hold Eliquis
- No fever or leukocytosis
-May need to go to the OR in the near future as OP for definitive management of this hepatic cyst fenestration repair of hernias
Ventral hernia
Not tender on palpation
-Without evidence of strangulation/incarceration
VTE
-Eliquis held as plans for IR aspiration of hepatic cyst on Wednesday
-Plan to resume Eliquis post IR.
Normocytic anemia, acute on chronic, without evidence of active bleeding, hemodynamical stable
-Transfuse if hgb <7
-If plans for transfusion then would obtain iron panel and ferritin otherwise should be completed as outpatient
-Age appropriate cancer screening
COPD. Chronic hypoxic respiratory failure on 2 to 3 L home O2
-As needed nebs
Hypertension
-Continue antihypertensives
Chronic HFpEF, euvolemic, EF 65 to 70%, NYHA class II-IV
-Continue diuretics
Total time spent to see the patient, examine the patient on the floor, review data and lab results, discuss treatment plan with patient, nursing staff around 55 minutes
Anticipated Discharge: 24 - 48 hours
Subjective/Interval History
-
Date of Service: January 10, 2024
No chest pain
No sob
No abdominal pain
Objective Data
-
Labs:
Laboratory Results
01/10/24
06:26
WBC 5.8
Hgb 8.4 L
Hct 27.9 L
Plt Count 174
Sodium 140
Potassium 4.0
Chloride 96 L
Carbon Dioxide 33 H
BUN 15
Creatinine 0.8
Glucose 94
Calcium 8.4
Total Bilirubin 0.6
AST 25
ALT 18
Alkaline Phosphatase 78
Vital Signs:
Vital Signs
Temp Pulse Resp BP Pulse Ox
98.5 F 70 17 132/71 97
01/10/24 08:49 01/10/24 08:49 01/10/24 08:49 01/10/24 08:49 01/10/24 08:49
I&O
01/09/24 01/10/24 01/11/24
06:59 06:59 06:59
Intake Total 1140 / 1140 780 / 780
Balance 1140 / 1140 780 / 780
--- NOTE | 2024-01-10 11:30 | PN.CDI ---
Addendum entered and electronically signed by Melina Barton MD 01/10/24 16:12:
Hypokalemia
Addendum entered and electronically signed by Melina Barton MD 01/10/24 16:08:
Hypokalemia
Of note (This lab finding was on 01/06/24)
Original Note:
CDI
- -
CDI:
Physician Documentation Request
Admit Date: 01/08/24 08:40
Dear Doctor Alex,
Patient admitted with abdominal pain.
01/05 Potassium level: 3
01/05 Potassium chloride 20 meq IV administered
Based on the above, could you clarify in the progress notes, the appropriate diagnosis, if significant, that supports the above abnormalities and additional evaluation, monitoring and/or treatment rendered:
Hypokalemia
Abnormal lab value insignificant
Other
Use of terms such as suspected, likely, concern for, or probable (associated with a specific diagnosis that is being evaluated, monitored, or treated as if it exists) are acceptable and can be coded in the inpatient setting, when documented at the
time of discharge.
Thank you,
Lesia Campos RN, BSN
CDI Specialist
Available via [place] text
Please use your independent medical judgment in providing your response.
--- NOTE | 2024-01-10 15:20 | W.PN.GS2 ---
Today's Communication / Plan
-
IR consult for aspiration of hepatic cyst
Assessment / Plan
-
Patient is an 83 yo F p/w likely partial GOO secondary to a recurrent symptomatic hepatic cyst
IR management with sclerotherapy is likely to be insufficient given the size of the cyst and will result in recurrence with a more scarred down operative field. The best procedural management of her current issues is an open fenestration of a
hepatic cyst with recurrent ventral incisional hernia repair with mesh and RIGHT inguinal hernia repair with mesh.
Plan for IR aspiration on Wednesday (01/09) following washout of her Eliquis. This will help with symptomatic management, as well as allow for cardiac/pulmonary evaluation and risk assessment. Would tentatively plan for outpatient follow-up and
further discussions on management for potential surgical scheduling.
Timing and plan again reviewed with patient today
IR aspiration of hepatic cyst today.
N.p.o., okay for clear liquids after procedure.
Continue to hold Eliquis
General Surgery will continue to follow
Time Spent
Total Time Spent with Patient (in minutes): 20
Subjective Data
-
Date of Service: January 10, 2024
Interval Events:
No acute events overnight. Pain Controlled but still bad. Denies Nausea/Vomiting.
Objective Data
-
Intake and Output
01/09/24 01/10/24 01/11/24
06:59 06:59 06:59
Intake Total 1140 / 1140 780 / 780
Balance 1140 / 1140 780 / 780
Intake:
Oral fluids 1140 / 1140 780 / 780
Other:
Number of approximated MODERATE 1 3
amounts of urine
Number of approximated LARGE 2
amounts of urine
Vital Signs
Temp Pulse Resp BP Pulse Ox
98.5 F 70 17 132/71 97
01/10/24 08:49 01/10/24 08:49 01/10/24 08:49 01/10/24 08:49 01/10/24 08:49
Lab Results
01/10/24 06:26
01/10/24 06:26
Calcium 8.4 mg/dl (8.4-10.2) 01/10/24 06:26
Magnesium 2.1 mg/dl (1.6-2.3) 01/07/24 05:42
Total Bilirubin 0.6 mg/dl (0.2-1.3) 01/10/24 06:26
Direct Bilirubin 0.1 mg/dl (0.0-0.4) 01/10/24 06:26
AST 25 U/L (14-36) 01/10/24 06:26
ALT 18 U/L (0-35) 01/10/24 06:26
Alkaline Phosphatase 78 U/L (38-126) 01/10/24 06:26
Total Protein 5.8 g/dl (6.3-8.2) L 01/10/24 06:26
Albumin 3.5 g/dl (3.5-5.0) 01/10/24 06:26
Physical Exam
-
GENERAL/NEURO: Awake, Alert, no distress
CHEST: Unlabored breathing on RA
ABDOMEN: Soft, Non-Tender, Non-Distended, soft but incarcerated abdominal wall hernias
[2024-01-10] MEDS: CRESTOR 10 MG PO (17:16)
[2024-01-10] MEDS: PEPCID 20 MG PO (22:27)
[2024-01-11 03:35] VITALS: BP 130/68
[2024-01-11 06:00] VITALS: BMI 31.4
[2024-01-11 07:25] VITALS: BP 131/61
[2024-01-11 07:39] LABS: Hematocrit 27.8 % (37.0-47.0); Hemoglobin 8.6 g/dL (12.0-16.0); Mean Corp Hgb Conc. 30.9 g/dL (33.0-37.0); Mean Corpuscular Hgb 29.8 pg (27.0-31.0); Mean Corpuscular Volume 96.2 fL (81.0-99.0); Platelet Count 181 10^3/uL (130-400); Red Blood Cell Count 2.89 10^6/uL (4.20-5.40); Red Cell Dist. Width 12.8 % (11.5-14.5); White Blood Cell Count 5.2 10^3/uL (4.8-10.8)
[2024-01-11 08:18] LABS: ALT (SGPT) 15 U/L (0-35); AST (SGOT) 22 U/L (14-36); Albumin 3.1 g/dl (3.5-5.0); Alkaline Phosphatase 76 U/L (38-126); Blood Urea Nitrogen 10 mg/dl (7-17); Calcium 8.2 mg/dl (8.4-10.2); Chloride 98 mmol/L (98-107); Direct Bilirubin 0.1 mg/dl (0.0-0.4); Estimated Creatinine Clearance 52 ml/min; Glucose 90 mg/dl (70-99); Potassium 3.4 mmol/L (3.5-5.1); Sodium 142 mmol/L (135-145); Total Bilirubin 0.6 mg/dl (0.2-1.3); Total Protein 5.2 g/dl (6.3-8.2); eGFR > 60.00
[2024-01-11] MEDS: PAXIL 40 MG PO (08:26)
[2024-01-11] MEDS: DIOVAN 320 MG PO (08:26)
[2024-01-11] MEDS: NORVASC 7.5 MG PO (08:26)
[2024-01-11] MEDS: VITAMIN D3 (cholecalciferol) 25 MCG PO (08:26)
[2024-01-11] MEDS: PROTONIX IV 40 MG IV (08:29)
[2024-01-11] MEDS: NSS (PRESERVATIVE FREE) 10 ML IV (08:29)
[2024-01-11] MEDS: LASIX 40 MG PO (08:29)
[2024-01-11] MEDS: MIRALAX 17 GRAMS PO (08:31)
[2024-01-11] MEDS: DESENEX/MITRAZOL/ZEASORB 1 APPLIC TOPICAL (08:31)
[2024-01-11 08:38] LABS: Carbon Dioxide 33 mmol/L (22-30)
--- NOTE | 2024-01-11 09:25 | W.PN.HOSP.TC ---
Addendum entered and electronically signed by Melina Barton MD 01/12/24 10:47:
Addendum
d/w Dr Yeung, ok to start diet as tolerated. Started low residue diet and she did well. Dr Yeung deferred starting Eliquis to IR doctor.
Reached out to IR, ok to resume Eliquis
Patient felt better after lunch and wanted to go home, she was independent ambulating in her room. dc instructions were d/w pt.
Total discharge time spent to see the patient, examine the patient, review data and lab results, discuss discharge plan with patient, surgery, nursing staff around 65 minutes
Original Note:
Today's Communication/Plan
-
Resume Eliquis
Advance diet
Assessment / Plan
Assessment / Plan
Imaging
IMPRESSION:
28.0 cm cystic mass encompassing the right hemiabdomen, which appears to arise from the right lobe of the liver. Thin internal septation at the superior aspect of the mass, and peripheral nodularity versus debris along the posterior inferior aspect
of the mass. Mass effect with peripheral displacement of adjacent abdominal structures.
Bowel containing midline anterior abdominal wall and right inguinal hernias. No evidence for a bowel obstruction.
Physical Exam
General: Not in distress
HEENT: Moist Mucous Membranes, wearing nasal O2
Respiratory: Non Labored Respirations
GI: Soft, not tender. (Large ventral hernia: soft/nontender)
Genito-urinary: Inguinal Hernia (right, soft/nontender)
Skin: Warm and Dry
Neuro: Awake, Alert and AO x 3, she followed commands.
Psych: Calm
Assessment and Plan:
# Abdominal pain with a differential diagnosis that is likely secondary to recurrent symptomatic hepatic cyst
Not in pain this morning
-Evaluated by GI and surgery
-s/p Ultrasound-guided aspiration of hepatic cyst with return of 4000 mL of dark hemorrhagic fluid grossly most consistent with old blood by IR on 01/09.
-Hold Eliquis, will reach out to surgery
- No fever or leukocytosis
-May need to go to the OR in the near future as OP for definitive management of this hepatic cyst fenestration repair of hernias
Ventral hernia
Not tender on palpation
-Without evidence of strangulation/incarceration
#VTE
will resume Eliquis if ok with surgery
Normocytic anemia, acute on chronic, without evidence of active bleeding, hemodynamical stable
-Transfuse if hgb <7
-If plans for transfusion then would obtain iron panel and ferritin otherwise should be completed as outpatient
-Age appropriate cancer screening
COPD. Chronic hypoxic respiratory failure on 2 to 3 L home O2
-As needed nebs
Essential Hypertension
-Continue antihypertensives
Chronic HFpEF, euvolemic, EF 65 to 70%, NYHA class II-IV
-Continue diuretics
Total time spent to see the patient, examine the patient on the floor, review data and lab results, discuss treatment plan with patient, nursing staff around 55 minutes
Anticipated Discharge: Within 24 hours
Subjective/Interval History
-
Date of Service: January 11, 2024
doing well
no abdominal pain
wants to eat food
Objective Data
-
Labs:
Laboratory Results
01/11/24
06:51
WBC 5.2
Hgb 8.6 L
Hct 27.8 L
Plt Count 181
Sodium 142
Potassium 3.4 L
Chloride 98
Carbon Dioxide 33 H
BUN 10
Creatinine 0.7
Glucose 90
Calcium 8.2 L
Total Bilirubin 0.6
AST 22
ALT 15
Alkaline Phosphatase 76
Vital Signs:
Vital Signs
Temp Pulse Resp BP Pulse Ox
97.5 F 57 16 131/61 95
01/11/24 07:25 01/11/24 07:25 01/11/24 07:25 01/11/24 07:25 01/11/24 07:25
I&O
01/10/24 01/11/24 01/12/24
06:59 06:59 06:59
Intake Total 780 / 780 480 / 480
Output Total
Balance 780 / 780 476 / 476
--- NOTE | 2024-01-11 11:19 | W.PN.GS2 ---
Today's Communication / Plan
-
ADAT
Assessment / Plan
-
Patient is an 83 yo F p/w likely partial GOO secondary to a recurrent symptomatic hepatic cyst PPD1 s/p IR aspiration
IR management with sclerotherapy is likely to be insufficient given the size of the cyst and will result in recurrence with a more scarred down operative field. The best procedural management of her current issues is an open fenestration of a
hepatic cyst with recurrent ventral incisional hernia repair with mesh and RIGHT inguinal hernia repair with mesh.
Plan for IR aspiration on Wednesday (01/09) following washout of her Eliquis. This will help with symptomatic management, as well as allow for cardiac/pulmonary evaluation and risk assessment. Would tentatively plan for outpatient follow-up and
further discussions on management for potential surgical scheduling.
Defer to IR on restarting A/C
OK to ADAT to L[facility]
General Surgery will s/o, pt to f/u with [facility] outpt (Dr Gonzalez)
Pls call with ?s
Subjective Data
-
Date of Service: January 11, 2024
Doing well post-procedure, denies abd pain, hungry
Objective Data
-
Intake and Output
01/10/24 01/11/24 01/12/24
06:59 06:59 06:59
Intake Total 780 / 780 480 / 480
Output Total 4 / 4
Balance 780 / 780 476 / 476
Intake:
Oral fluids 780 / 780 480 / 480
Output:
Urine, Voided 4 / 4
Other:
Number of approximated MODERATE 3 3
amounts of urine
Vital Signs
Temp Pulse Resp BP Pulse Ox
97.5 F 57 16 131/61 95
01/11/24 07:25 01/11/24 07:25 01/11/24 07:25 01/11/24 07:25 01/11/24 07:25
Lab Results
01/11/24 06:51
01/11/24 06:51
Calcium 8.2 mg/dl (8.4-10.2) L 01/11/24 06:51
Magnesium 2.1 mg/dl (1.6-2.3) 01/07/24 05:42
Total Bilirubin 0.6 mg/dl (0.2-1.3) 01/11/24 06:51
Direct Bilirubin 0.1 mg/dl (0.0-0.4) 01/11/24 06:51
AST 22 U/L (14-36) 01/11/24 06:51
ALT 15 U/L (0-35) 01/11/24 06:51
Alkaline Phosphatase 76 U/L (38-126) 01/11/24 06:51
Total Protein 5.2 g/dl (6.3-8.2) L 01/11/24 06:51
Albumin 3.1 g/dl (3.5-5.0) L 01/11/24 06:51
Physical Exam
-
Gen: NAD
Abd: soft, nt, nd, bandaid at aspiration site cdi
--- NOTE | 2024-01-11 12:22 | CM ---
Reviewed the chart notes. Patient s/p IR ultrasound guided aspiration of hepatic cyst. Diet advanced to low residual. CM continues to be available to patient/family and is monitoring medical plan for needs at discharge.
Plan: Discharge to home when medically stable. No needs anticipated at this time.
[2024-01-11] MEDS: DILAUDID 0.5 MG IV (13:28)
--- NOTE | 2024-01-11 13:36 | W.DCSUMMARY ---
Discharge Summary
Discharge Data
Date of Admission: 01/08/24
Date of Discharge: 01/11/24
-
Pending Results: No
Hospital Course
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 She had normal bowel
movements. She denied hematemesis or rectal bleeding. Patient had history of recurrent ruptured hepatic cyst. Scan of the abdomen pelvis showed well-formed recurrent hepatic cyst with no evidence of rupture or signs of internal bleeding. Surgery
and gastroenterology services were consulted and recommended IR aspiration. Eliquis was held. She had Ultrasound-guided aspiration of hepatic cyst with return of 4000 mL of dark hemorrhagic fluid grossly most consistent with old blood by IR on
01/09. No complications reported. Eliquis was resumed. Diet was resumed with no abdominal discomfort. Patient remained hemodynamically stable and was discharged home in a stable condition.
Discharge Plan
-
Patient Disposition: Home (Routine Discharge)
Discharge Diagnosis/Procedures: Recurrent symptomatic hepatic cyst status post IR aspiration
Diet: As tolerated
Referrals:
Bonifacio Gonzalez MD [Active] - in one to two weeks
Fanta Muller MD [Family Provider] -
Prescriptions:
Continued
Eliquis 5 mg Tablet
5 mg PO BID
amlodipine [Norvasc] 2.5 mg Tablet
7.5 mg PO DAILY
paroxetine HCl [Paxil CR] 25 mg Tablet Extended Release 24 Hr
50 mg PO DAILY
rosuvastatin [Crestor] 10 mg Tablet
10 mg PO QPM
Jardiance 10 mg Tablet
10 mg PO DAILY
furosemide 40 mg Tablet
40 mg PO DAILY
furosemide 40 mg tablet
20 mg PO QPM
famotidine 40 mg tablet
40 mg PO HS
zinc sulfate 50 mg zinc (220 mg) Tablet
50 mg PO DAILY
pantoprazole 40 mg tablet,delayed release (DR/EC)
40 mg PO DAILYPRN PRN (Reason: reflux)
valsartan 320 mg tablet
320 mg PO DAILY
cholecalciferol (vitamin D3) 25 mcg (1,000 unit) Tablet
25 mcg PO DAILY
polyethylene glycol 3350 [HealthyLax] 17 gram powder in packet
17 g PO DAILYPRN PRN (Reason: constipation)
Discharge Orders:
Discharge Patient (As Directed); Ordered 01/11/24
Ordered By: Melina Barton
Discharge Date and Time
Discharge Date/Time: 01/11/24 16:01
Print Language: BOTSWANAN
[2024-01-11] MEDS: KCL 20 MEQ PO (13:51)
--- NOTE | 2024-01-11 15:21 | CM ---
Reviewed the chart notes and spoke with the patient at the bedside. IMM reviewed and place on the chart. The patient's son will provide transportation home.
Plan: Discharge to home today. No additional needs identified.
== END 2024-01-11 16:01 | disposition home or self-care (01) | DRG 445 ==
LOC: 2 NORTH 08:40
PROVIDERS: Emergency Medicine; Hospitalist; Radiology Vascular & Interventional Radiology; ADMITTING PHYSICIAN Internal Medicine; ATTENDING PHYSICIAN Internal Medicine; CONSULT PHYSICIAN Internal Medicine Gastroenterology; CONSULT PHYSICIAN Surgery; EMERGENCY PHYSICIAN Emergency Medicine; FAMILY PHYSICIAN Internal Medicine Geriatric Medicine
PROC: 0F913ZZ Drainage of Right Lobe Liver, Percutaneous Approach (ICD-10-PCS; 2024-01-10)
DX: K83.5 Biliary cyst (principal); I50.32 Chronic diastolic (congestive) heart failure; K31.1 Adult hypertrophic pyloric stenosis; J96.11 Chronic respiratory failure with hypoxia; I11.0 Hypertensive heart disease with heart failure; E11.9 Type 2 diabetes mellitus without complications; E78.00 Pure hypercholesterolemia, unspecified; E86.0 Dehydration; J44.9 Chronic obstructive pulmonary disease, unspecified; E87.6 Hypokalemia; K21.9 Gastro-esophageal reflux disease without esophagitis; K43.9 Ventral hernia without obstruction or gangrene; F32.A Depression, unspecified; F41.9 Anxiety disorder, unspecified; D64.9 Anemia, unspecified; Z87.891 Personal history of nicotine dependence; Z79.01 Long term (current) use of anticoagulants; Z79.84 Long term (current) use of oral hypoglycemic drugs; Z79.899 Other long term (current) drug therapy; Z86.711 Personal history of pulmonary embolism; Z86.718 Personal history of other venous thrombosis and embolism; Z99.81 Dependence on supplemental oxygen
CPT/HCPCS: 10030; 74177; 80048; 80053; 82248; 83690; 83735; 85025; 85027; 94640; 96361; 96374; 96375; 99285; C1729; C1769; Q9967

== ENCOUNTER → 2024-03-17 13:55 | Outpatient (REF) | payer MEDICARE, BC, SELFPAY | LOC: RCS 13:55 | PROVIDERS: ATTENDING PHYSICIAN Internal Medicine Cardiovascular Disease; FAMILY PHYSICIAN Internal Medicine Geriatric Medicine | DX: I35.1 Nonrheumatic aortic (valve) insufficiency (principal) | CPT/HCPCS: 93306 ==

== ENCOUNTER → 2024-04-10 12:27 | Outpatient (REF) | payer MEDICARE, BC, SELFPAY ==
[2024-04-10 12:56] VITALS: BP 130/77; BP_SYST 50
[2024-04-10 13:57] VITALS: BP 134/93; BP_SYST 55
[2024-04-10 14:02] VITALS: BP 138/74; BP_SYST 54
[2024-04-10 14:30] VITALS: BP 138/74
--- NOTE | 2024-04-10 14:38 | PTCARENOTE ---
IRAD note: Patient c/o sharp chest pain and burping towards the end of the the procedure. cyst draining stopped. left chest pain getting better but also c/o radiating to shoulder and arm. Dr. Ramos notified. Hepatic cyst drained completely per US
per Dr. Ramos. post procedure c/o mild left chest pain, denies radiating to Arm and shoulder. continue to Burp. offered to take patient to ER for left chest pain but patient refused. monitored patient for some time. patient requested to go home
stated ' I am ok now'. wheeled to main lobby to her daughter. Patient's daughter notified of her chest pain and burping. Offered again to take to ER but refused.
== END ==
LOC: RADI 12:27
PROVIDERS: ATTENDING PHYSICIAN Surgery; FAMILY PHYSICIAN Internal Medicine Geriatric Medicine
DX: K76.89 Other specified diseases of liver (principal)
CPT/HCPCS: 49405; C1729; C1769

== ENCOUNTER 2024-05-11 15:23 | Emergency (ER) | payer MEDICARE, BC, SELFPAY ==
[2024-05-11 15:24] VITALS: BP 133/69
--- NOTE | 2024-05-11 15:52 | ED.GENMED ---
History of Present Illness
General
Chief Complaint: Nose Bleed
Source: patient, ambulance crew and [facility]
Exam Limitations: none
Time Seen by Provider: 05/11/24 15:26
Nursing documentation reviewed up to this point in time: agreed with
History of Present Illness
History of Present Illness:
83-year-old female past with history of CHF hyperlipidemia currently on Eliquis history of blood clot presenting to the emergency department today with concerns of right sided nosebleed. Does use nasal cannula occasionally and thinks that she may
have irritated the nose from this. Has bled 3 different times today with self resolution.
Past History
Past History
ED Past Medical History: CHF, COPD, GERD, HTN, Psychiatric (depression, anxiety, ventral hernia) and Other (PE on Eliquis, bowel obstruction, spinal stenosis,)
ED Past Surgical History: Gynecological
Social History
Tobacco: Non-smoker
Alcohol: None
Drug: None
Living: with family
Employment: Retired
Review of Systems
Review of Systems
Allergies reviewed?: Yes
All Other Systems: ROS reviewed and negative except as documented in HPI and ROS
Phy Exam
Physical Exam
Physical Exam:
GENERAL: Alert , in no apparent distress
EYE: pupils equal and reactive
NECK: Supple, no significant adenopathy.
ENT: Small scab to the mid right sided nasal septum no active bleeding. o/p clr, mmm.
CARDIAC: Regular rate and rhythm .
LUNGS: Clear breath sounds bilaterally, no acute respiratory distress, no wheezes/rales/rhonchi
ABDOMEN: Soft, without focal tenderness, no r/g, no cvat
NEUROLOGICAL: Alert and oriented, no focal neuro deficits
SKIN: Warm and dry, skin intact.
MUSCULOSKELETAL: No edema, well perfused.
PSYCH: Normal and appropriate interaction.
Course
Vital Signs
Initial and Last Documented VS:
Initial Vital Signs
Temp Pulse Resp BP Pulse Ox
97.9 F 69 18 133/69 95
05/11/24 15:24 05/11/24 15:24 05/11/24 15:24 05/11/24 15:24 05/11/24 15:24
Last Documented Vital Signs
Temp Pulse Resp BP Pulse Ox
97.9 F 69 18 133/69 94
05/11/24 15:24 05/11/24 15:24 05/11/24 15:24 05/11/24 15:24 05/11/24 15:30
Procedures
Nosebleed
Drug treatment: none
Treatment: Silver nitrate cautery
Post treatment bleeding: none- good control
MDM/Problems Addressed
MDM/Problems Addressed:
83-year-old female presenting to the emergency department with concerns of right sided nosebleed. Currently on Eliquis for previous history of blood clot. Here there is a small scab to the right nasal septum. Likely site of previous bleeding. No
blood to the left side. Patient was cauterized no bleeding here for over half an hour stable for discharge. Advised for close outpatient follow-up.
*Critical Care Note
Total Time (30-74mins, 75-104mins- exclusive of procedures): Not Applicable
ED Attending Note
-
Portions of this chart may have been created with voice recognition software.� Occasional wrong word or��sound alike� substitutions may have occurred due to the inherent limitations of voice recognition software.
Discharge Plan
Departure
Patient Disposition: Home (Routine Discharge)
Date of Disposition: 05/11/24
Time of Disposition: 15:53
Patient with high blood pressure during this ER visit?: No
Condition: Good
Covid-19: Not Applicable
Discharge Problem:
Acute anterior epistaxis
Instructions: Nosebleeds (DC)
Prescriptions:
No Action
Eliquis 5 mg Tablet
5 mg PO BID
Rx Instructions:
held Sat 04/08 and Sun 2/23 (patient states she has not taken this for a while)
amlodipine [Norvasc] 2.5 mg Tablet
7.5 mg PO DAILY
paroxetine HCl [Paxil CR] 25 mg Tablet Extended Release 24 Hr
37.5 mg PO DAILY
rosuvastatin [Crestor] 10 mg Tablet
5 mg PO QPM
Jardiance 10 mg Tablet
25 mg PO DAILY
furosemide 40 mg Tablet
40 mg PO DAILY
furosemide 40 mg tablet
20 mg PO QPM
famotidine 40 mg tablet
40 mg PO HS
pantoprazole 40 mg tablet,delayed release (DR/EC)
40 mg PO DAILYPRN PRN (Reason: reflux)
valsartan 320 mg tablet
320 mg PO DAILY
cholecalciferol (vitamin D3) 25 mcg (1,000 unit) Tablet
25 mcg PO DAILY
polyethylene glycol 3350 [HealthyLax] 17 gram powder in packet
17 g PO DAILYPRN PRN (Reason: constipation)
Prolia 60 mg/mL Syringe
60 mg SC [id number]
Referrals:
Fanta Muller MD [Family Provider] -
Activity Restrictions/Additional Instructions:
You came to the emergency department today with concerns of a nosebleed. This was cauterized. Please keep the area acted over the next few days and follow-up closely as an outpatient. Return for any worsening, new or concerning symptoms.
Interventions
Interventions:
*Risk Screen - Suicide Last Done: 05/11/24 15:29
*General Assessment Last Done: 05/11/24 15:29
*Neglect/Abuse Screening Last Done: 05/11/24 15:29
*ED COVID-19 Vaccine History Last Done: 05/11/24 15:29
ED-EENT Assessment Last Done: 05/11/24 15:29
Discharge Date and Time
Print Language: IRISH
[2024-05-11 16:18] VITALS: BMI 31.5
== END 2024-05-11 16:20 | disposition home or self-care (01) ==
LOC: EMR 15:23
PROVIDERS: EMERGENCY PHYSICIAN Emergency Medicine; FAMILY PHYSICIAN Internal Medicine Geriatric Medicine
DX: R04.0 Epistaxis (principal); I11.0 Hypertensive heart disease with heart failure; I50.9 Heart failure, unspecified; E78.5 Hyperlipidemia, unspecified; Z86.711 Personal history of pulmonary embolism; Z79.01 Long term (current) use of anticoagulants; J44.9 Chronic obstructive pulmonary disease, unspecified
CPT/HCPCS: 30901; 99282

== ENCOUNTER 2024-08-21 11:03 | Emergency (ER) | payer MEDICARE, BC, SELFPAY ==
[2024-08-21 11:04] VITALS: BP 129/75
--- NOTE | 2024-08-21 12:27 | ED.GENMED ---
History of Present Illness
General
Chief Complaint: Nose Bleed
Source: patient
Exam Limitations: none
Time Seen by Provider: 08/21/24 11:39
Nursing documentation reviewed up to this point in time: agreed with except (Bleeding from right nare not left left)
History of Present Illness
History of Present Illness:
84-year-old female with history as noted presents to the ER for evaluation of epistaxis. Patient reports that she woke up this morning and shortly after awaking started with a nosebleed from her right nare. She says that she had bleeding for about
40 minutes that was not improving with direct pressure and show she came to the emergency room. Since arrival bleeding seems to have abated. She denies any bleeding from the left nare. She denies swallowing significant mount of blood although she
said she did have some blood in mucus when she spit it up during nosebleed. She denies any trauma to the nose. She is on Eliquis for history of DVT/PE. She also wears chronic nasal oxygen and so she has a history of recurrent nosebleeds in the
past.
Past History
Past History
ED Past Medical History: CHF, COPD, GERD, HTN, Psychiatric (depression, anxiety, ventral hernia) and Other (PE on Eliquis, bowel obstruction, spinal stenosis,)
ED Past Surgical History: Gynecological
Social History
Tobacco: Non-smoker
Alcohol: None
Drug: None
Living: with family
Employment: Retired
Review of Systems
Review of Systems
EENT: Reports other (Epistaxis)
Phy Exam
Physical Exam
Physical Exam:
General: Well appearing and non-toxic
HEENT: protecting airway; no blood noted in the posterior oropharynx; she has no blood in the left naris; on exam of the right nares she has a very small area of dried mucosa/abrasion with small clot overlying, currently hemostatic
Neck: appears supple
CV: No evidence of cyanosis
Resp: No accessory muscle use
Abd: Non-distended
Extremities: No deformities
Neuro: Alert
Psych: Normal affect
Skin: Intact
Scores
Heart Failure Risk
Heart Failure Risk Score: Not Applicable
Heart Score for Chest Pain Patients
STEMI patient?: Not applicable
Withdrawal Assessment of Alcohol
Withdrawal Assessment Completed?: Not applicable
Course
Vital Signs
Initial and Last Documented VS:
Initial Vital Signs
Temp Pulse Resp BP Pulse Ox
36.6 C 70 16 129/75 92
08/21/24 11:04 08/21/24 11:04 08/21/24 11:04 08/21/24 11:04 08/21/24 11:04
Last Documented Vital Signs
Temp Pulse Resp BP Pulse Ox
36.6 C 70 16 129/75 92
08/21/24 11:04 08/21/24 11:04 08/21/24 11:04 08/21/24 11:04 08/21/24 12:32
Procedures
Nosebleed
Drug treatment: Epinephrine
Treatment: Silver nitrate cautery
Post treatment bleeding: none- good control
MDM/Problems Addressed
Differential Diagnosis Includes:
Anterior epistaxis
MDM/Problems Addressed:
84-year-old female presents with acute anterior epistaxis from the right nare. She was able to control it with direct pressure and is currently hemostatic. Source of bleeding was visualized and has a small clot overlying�had a long discussion with
patient she is adamant that she wants to have this area cauterized. I explained that effective cautery would involve removing clot to apply cautery directly to mucosal surface and this could result in additional bleeding; I actually recommended
watchful waiting without disturbing clot for the time being but she wishes to proceed with cautery.
I applied epinephrine soaked gauze to the nasal mucosa for pretreatment. I then removed the small clot and cauterized the entire surface of the nasal septum around source of bleeding. Area was hemostatic. Will observe after cautery for rebleeding
and if remains hemostatic can be discharged with ENT follow-up.
No additional bleeding remains hemostatic after observation. Stable for discharge.
Chronic conditions affecting care:
COPD on chronic oxygen likely contributes to epistaxis; history of PE on Eliquis complicates epistaxis
*Pulse Oximetry
SaO2: 92
Oxygen Mode of Delivery: Room air
Patient hypoxic: no (92%)
*Critical Care Note
Total Time (30-74mins, 75-104mins- exclusive of procedures): Not Applicable
Data Reviewed
Source: patient and records
ED Attending Note
-
Portions of this chart may have been created with voice recognition software.� Occasional wrong word or��sound alike� substitutions may have occurred due to the inherent limitations of voice recognition software.
Discharge Plan
Departure
Patient Disposition: Home (Routine Discharge)
Date of Disposition: 08/21/24
Time of Disposition: 12:32
Patient with high blood pressure during this ER visit?: No
Discharge Problem:
Acute anterior epistaxis
Instructions: Nosebleeds (DC)
Prescriptions:
No Action
Eliquis 5 mg Tablet
5 mg PO BID
Rx Instructions:
held Sat 04/08 and Sun 04/09 (patient states she has not taken this for a while)
amlodipine [Norvasc] 2.5 mg Tablet
7.5 mg PO DAILY
paroxetine HCl [Paxil CR] 25 mg Tablet Extended Release 24 Hr
37.5 mg PO DAILY
rosuvastatin [Crestor] 10 mg Tablet
5 mg PO QPM
Jardiance 10 mg Tablet
25 mg PO DAILY
furosemide 40 mg Tablet
40 mg PO DAILY
furosemide 40 mg tablet
20 mg PO QPM
famotidine 40 mg tablet
40 mg PO HS
pantoprazole 40 mg tablet,delayed release (DR/EC)
40 mg PO DAILYPRN PRN (Reason: reflux)
valsartan 320 mg tablet
320 mg PO DAILY
cholecalciferol (vitamin D3) 25 mcg (1,000 unit) Tablet
25 mcg PO DAILY
polyethylene glycol 3350 [HealthyLax] 17 gram powder in packet
17 g PO DAILYPRN PRN (Reason: constipation)
Prolia 60 mg/mL Syringe
60 mg SC [id number]
Referrals:
Oneil Howe MD [Active, Otology] - Call in 1-3 days for appt
Referral Note: ENT
Analia Marquez MD [Family Provider, Internal Medicine]
Activity Restrictions/Additional Instructions:
Thank you for visiting the Emergency Department at [facility].
1. Please schedule a follow up appointment as directed. Call first thing tomorrow morning to make an appointment.
2. If indicated, please take your medications as instructed and indicated on discharge paperwork.
3. If any of your symptoms do not improve, or persist, or become more severe within 6-12 hours, please return to the emergency department for further care.
4. Please return to the emergency department if you develop a headache, neck pain/stiffness, fever greater than 100.4F, chest pain, shortness of breath, persistent nausea, vomiting, slurred speech, difficulty walking, numbness/tingling, weakness,
signs of infection or any other symptoms that are worrisome to you.
Please call [phone] if you have any questions.
Interventions
Interventions:
*Risk Screen - Suicide Last Done: 08/21/24 11:04
*Neglect/Abuse Screening Last Done: 08/21/24 11:04
ED-EENT Assessment Last Done: 08/21/24 11:45
Discharge Date and Time
Print Language: [place]
== END 2024-08-21 13:02 | disposition home or self-care (01) ==
LOC: EMR 11:03
PROVIDERS: EMERGENCY PHYSICIAN Emergency Medicine; FAMILY PHYSICIAN Internal Medicine Geriatric Medicine
DX: R04.0 Epistaxis (principal); I11.0 Hypertensive heart disease with heart failure; I50.9 Heart failure, unspecified; J44.9 Chronic obstructive pulmonary disease, unspecified; F41.9 Anxiety disorder, unspecified; F32.A Depression, unspecified; K21.9 Gastro-esophageal reflux disease without esophagitis; M48.00 Spinal stenosis, site unspecified; Z79.01 Long term (current) use of anticoagulants; Z86.718 Personal history of other venous thrombosis and embolism; Z86.711 Personal history of pulmonary embolism; Z99.81 Dependence on supplemental oxygen
CPT/HCPCS: 99283; 30901

== ENCOUNTER 2024-08-28 01:26 | Emergency (ER) | payer MEDICARE, BC, SELFPAY ==
[2024-08-28 01:31] VITALS: BP 120/74
[2024-08-28] MEDS: TYLENOL 1000 MG PO (01:46)
[2024-08-28 03:18] VITALS: BP 127/77
--- NOTE | 2024-08-28 03:54 | ED.GENMED ---
History of Present Illness
<Eneida Branch PA-C - Last Filed: 08/28/24 11:35>
General
Chief Complaint: Nose Bleed
Source: patient
Exam Limitations: none
Time Seen by Provider: 08/28/24 03:51
Nursing documentation reviewed up to this point in time: agreed with
History of Present Illness
History of Present Illness:
Note:
CHIEF COMPLAINT(S)
Nosebleed
HISTORY OF PRESENT ILLNESS
The patient is an 84-year-old female with a hx of COPD chronically on O2 via nasal cannula,CHF, HTN, HLP, aortic stenosis who presented with an episode of epistaxis started the past day. She reported that the nosebleed originated from the right
side. It reportedly was happening on and off for the past 5 hours. It eventually stopped but restarted recently. The patient denies any trauma to the nose. She denies bleeding from the left nare. She denies hematemesis. She denies abdominal pain.
She is on Eliquis for history of DVT/PE.
PHYSICAL EXAM
- Nursing notes reviewed and vital signs reviewed.
General: Patient is well appearing and in no acute distress; non-toxic
Skin: Warm and dry, no rashes or lesions
Head: Normocephalic, atraumatic
Eyes: Sclera non-icteric. EOMs intact.
Nose: Dried blood noted in both nares bilaterally. No blood within the posterior oropharynx. No evidence of septal hematoma.
Cardiac: Regular rate
Pulm: Normal respiratory effort
Neuro: CN II-XII intact, no focal neurologic deficits.
Psychiatric: Appropriate mood and affect.
PLAN
The treatment plan for managing the nosebleed includes applying cotton swabs soaked in epinephrine into the nasal cavity to constrict the blood vessels and prevent recurrence of the bleeding. Following this, bactitracin ointment was applied to the
nostril to keep the area dry and help prevent infection.
DIFFERENTIAL DIAGNOSIS
The Differential Diagnosis includes, in no particular order and is not limited to:
1. Trauma to the nasal cavity
2. Hypertension
3. Coagulation disorders
4. Nasal polyps
5. Infections such as sinusitis
6. Vascular malformations
7. Neoplasms in the nasal cavity
8. Drug-induced epistaxis (e.g., anticoagulants)
9. Environmental factors (e.g., dry air)
10. Idiopathic causes
CARE-UPDATE
08/28/24 - 05:04
The patient experienced re-bleeding despite pressure and epinephrine soaked gauze. Since patient is on oxygen chronically via nasal cannula, merocel packing and rinorocket would not be considered a practical option for management. Patient is
requesting cautery.
MDM
84 y/o female hx of copd on chronic O2, hx of DVT/PE on eliquis presents today with right anterior epistaxis.
Initially bleeding stopped and patient was observed and pressure was applied as well as epi soaked cotton however bleeding returned.
Patient was seen a week ago for similar symptoms and had silver nitrate cautery done within the right nare. On my exam, the mucosa appears intact and healed from prior cautery.
Considering Merocel packing and rhinorocket is not an option for patient considering reliance on nasal cannula, I did apply cautery to the site of bleeding to a small area for approximately 2 seconds. Bleeding currently controlled. Patient was
monitored with no evidence of rebleeding. Discussed use of ocean spray at home to keep nasal mucosa moist.
Past History
<Eneida Branch PA-C - Last Filed: 08/28/24 11:35>
Past History
ED Past Medical History: CHF, COPD, GERD, HTN, Psychiatric (depression, anxiety, ventral hernia) and Other (PE on Eliquis, bowel obstruction, spinal stenosis,)
ED Past Surgical History: Gynecological
Social History
Tobacco: Non-smoker
Alcohol: None
Drug: None
Living: with family
Employment: Retired
Review of Systems
<Eneida Branch PA-C - Last Filed: 08/28/24 11:35>
Review of Systems
All Other Systems: ROS reviewed and negative except as documented in HPI and ROS
Phy Exam
<Eneida Branch PA-C - Last Filed: 08/28/24 11:35>
Physical Exam
Physical Exam:
see hpi
Course
<Eneida Branch PA-C - Last Filed: 08/28/24 11:35>
Orders/Labs/Results
Orders:
Orders
08/28/24 01:44
Acetaminophen [Tylenol] 1,000 mg .ROUTE .STK-MED ONE
08/28/24 01:46
Acetaminophen [Tylenol] 1,000 mg PO NOW STA
Vital Signs
Initial and Last Documented VS:
Initial Vital Signs
Temp Pulse Resp BP Pulse Ox
97.4 F 86 24 120/74 92
08/28/24 01:31 08/28/24 01:31 08/28/24 01:31 08/28/24 01:31 08/28/24 01:31
Last Documented Vital Signs
Temp Pulse Resp BP Pulse Ox
98.3 F 85 20 142/93 94
08/28/24 09:49 08/28/24 09:49 08/28/24 09:49 08/28/24 09:49 08/28/24 09:49
<Eladia Merino DO - Last Filed: 08/28/24 09:25>
Orders/Labs/Results
Orders:
Orders
08/28/24 01:44
Acetaminophen [Tylenol] 1,000 mg .ROUTE .STK-MED ONE
08/28/24 01:46
Acetaminophen [Tylenol] 1,000 mg PO NOW STA
Vital Signs
Initial and Last Documented VS:
Initial Vital Signs
Temp Pulse Resp BP Pulse Ox
97.4 F 86 24 120/74 92
08/28/24 01:31 08/28/24 01:31 08/28/24 01:31 08/28/24 01:31 08/28/24 01:31
Last Documented Vital Signs
Temp Pulse Resp BP Pulse Ox
98.3 F 85 20 142/93 94
08/28/24 09:49 08/28/24 09:49 08/28/24 09:49 08/28/24 09:49 08/28/24 09:49
<Eneida Branch PA-C - Last Filed: 08/28/24 11:35>
*Pulse Oximetry
SaO2: 90
Nasal Cannula flow liters per minute: 4
Oxygen Mode of Delivery: Room air
Patient hypoxic: no
*Critical Care Note
Total Time (30-74mins, 75-104mins- exclusive of procedures): Not Applicable
<Eladia Merino DO - Last Filed: 08/28/24 09:25>
Update Note
Update Note:
Eladia Merino DO
09:20 -patient had been discharged home, waiting for ride. Patient had allegedly come to the ER last evening, seen by overnight provider with concern for epistaxis to the right nare. Status post cauterization with appropriate hemostasis. Alerted
by nursing staff that nose was oozing. On my assessment, mild area of bleeding at the right septum. Area cauterized again with appropriate hemostasis. Appropriate for disposition home
ED Attending Note
<Eneida Branch PA-C - Last Filed: 08/28/24 11:35>
-
Portions of this chart may have been created with voice recognition software.� Occasional wrong word or��sound alike� substitutions may have occurred due to the inherent limitations of voice recognition software.
Discharge Plan
Departure
Patient Disposition: Home (Routine Discharge)
Date of Disposition: 08/28/24
Time of Disposition: 05:35
Patient with high blood pressure during this ER visit?: No
Condition: Fair
Discharge Problem:
Acute anterior epistaxis
Instructions: Nosebleeds (DC)
Prescriptions:
No Action
Eliquis 5 mg Tablet
5 mg PO BID
amlodipine [Norvasc] 2.5 mg Tablet
7.5 mg PO DAILY
paroxetine HCl [Paxil CR] 25 mg Tablet Extended Release 24 Hr
25 mg PO DAILY
Jardiance 10 mg Tablet
10 mg PO DAILY
furosemide 40 mg Tablet
40 mg PO DAILY
furosemide 40 mg tablet
20 mg PO QPM
famotidine 40 mg tablet
40 mg PO HS
pantoprazole 40 mg tablet,delayed release (DR/EC)
40 mg PO BID
valsartan 320 mg tablet
320 mg PO DAILY
cholecalciferol (vitamin D3) 25 mcg (1,000 unit) Tablet
25 mcg PO DAILY
alprazolam [Xanax] 0.25 mg Tablet
0.25 mg PO DAILY PRN (Reason: anxiety)
docusate sodium [Colace] 100 mg Capsule
100 mg PO DAILY
metoprolol succinate 25 mg Tablet Extended Release 24 Hr
25 mg PO DAILY
albuterol 90 mcg/actuation Aerosol
90 mcg INHALATION Q4 PRN (Reason: wheezing)
Trelegy Ellipta 200-62.5-25 mcg Blister With Device
1 inh INHALATION Q48H
Referrals:
Analia Marquez MD [Family Provider, Internal Medicine]
Activity Restrictions/Additional Instructions:
You had your right anterior nare cauterized today with silver nitrate.
Please use [place] spray or saline spray [id number] multiple times a day in each nare for the next few days. It is important to keep the nose well moisturized as your nasal cannula can dry out the area.
Please follow-up with your primary care provider.
Should you have bleeding again, please apply pressure directly with gauze or with a nose clip.
PLEASE RETURN EMERGENCY DEPARTMENT SHOULD YOU DEVELOP VOMITING OF BLOOD, LIGHTHEADEDNESS, DIZZINESS, SHORTNESS OF BREATH, CHEST PAIN, OR ANY OTHER SIGNS OR SYMPTOMS WORRISOME TO YOU.
Interventions
Interventions:
*Risk Screen - Suicide Last Done: 08/28/24 01:31
*General Assessment Last Done: 08/28/24 01:50
*Neglect/Abuse Screening Last Done: 08/28/24 01:31
*ED- Fall Risk Assessment Last Done: 08/28/24 01:50
*ED COVID-19 Vaccine History Last Done: 08/28/24 01:50
*Nursing Disposition Last Done: 08/28/24 09:49
ED-EENT Assessment Last Done: 08/28/24 01:50
Discharge Date and Time
Discharge Date/Time: 08/28/24 09:40
Print Language: TELUGU
[2024-08-28 06:39] VITALS: BP 122/88
[2024-08-28 09:49] VITALS: BP 142/93
--- NOTE | 2024-08-28 09:49 | EDRN ---
Reviewed discharge instructions with patient. Verbalized understanding. Taken to lobby in wheelchair.
== END 2024-08-28 09:40 | disposition home or self-care (01) ==
LOC: EMR 01:26
PROVIDERS: EMERGENCY PHYSICIAN Emergency Medicine; FAMILY PHYSICIAN Internal Medicine Geriatric Medicine
DX: R04.0 Epistaxis (principal); J44.9 Chronic obstructive pulmonary disease, unspecified; K21.9 Gastro-esophageal reflux disease without esophagitis; I11.0 Hypertensive heart disease with heart failure; I50.9 Heart failure, unspecified; F32.A Depression, unspecified; F41.9 Anxiety disorder, unspecified; M48.00 Spinal stenosis, site unspecified; I35.0 Nonrheumatic aortic (valve) stenosis; E78.5 Hyperlipidemia, unspecified; M81.0 Age-related osteoporosis without current pathological fracture; F31.9 Bipolar disorder, unspecified; R01.1 Cardiac murmur, unspecified; Z79.01 Long term (current) use of anticoagulants; Z99.81 Dependence on supplemental oxygen; Z86.718 Personal history of other venous thrombosis and embolism; Z86.711 Personal history of pulmonary embolism; Z87.891 Personal history of nicotine dependence; Z87.01 Personal history of pneumonia (recurrent)
CPT/HCPCS: 99283; 30901

== ENCOUNTER → 2024-10-06 13:19 | Outpatient (REF) | payer MEDICARE, SELFPAY | LOC: HWRCS 13:19 | PROVIDERS: ATTENDING PHYSICIAN Nurse Practitioner Gerontology; FAMILY PHYSICIAN Internal Medicine Geriatric Medicine | DX: I50.32 Chronic diastolic (congestive) heart failure (principal); I35.0 Nonrheumatic aortic (valve) stenosis; I25.10 Atherosclerotic heart disease of native coronary artery without angina pectoris | CPT/HCPCS: 93306 ==

== ENCOUNTER → 2024-10-20 08:30 | Outpatient (REF) | payer MEDICARE, SELFPAY ==
[2024-10-20 09:13] VITALS: BP 184/97; BP_SYST 64
[2024-10-20 09:35] LABS: Hematocrit 38.3 % (37.0-47.0); Hemoglobin 12.1 g/dL (12.0-16.0); Mean Corp Hgb Conc. 31.6 g/dL (33.0-37.0); Mean Corpuscular Volume 93.4 fL (81.0-99.0); Platelet Count 203 10^3/uL (130-400); Red Cell Dist. Width 13.5 % (11.5-14.5)
[2024-10-20 09:48] LABS: INR 0.96; PT 13.1 Sec (11.4-14.6)
[2024-10-20] MEDS: SYRINGE NON-PUMP 50 ML IRRIG ×2 (10:10)
[2024-10-20] MEDS: SYRINGE NON-PUMP 50 MG IRRIG ×2 (10:10)
[2024-10-20 10:20] VITALS: BP 209/146; BP_SYST 60
[2024-10-20 10:40] VITALS: BP 193/96; BP_SYST 62
[2024-10-20 11:40] VITALS: BP 173/82; BP_SYST 63
== END ==
LOC: RADI 08:30
PROVIDERS: ATTENDING PHYSICIAN Surgery
DX: K76.89 Other specified diseases of liver (principal); D68.8 Other specified coagulation defects
CPT/HCPCS: 36415; 49185; 49405; 85027; 85610; C1729; C1769